=== PATIENT | female | born 1945 | race Caucasian/White ===

== ENCOUNTER → 2022-01-11 | Outpatient (CLI) | payer MEDICARE, MEDICAID, SELFPAY | END | disposition home or self-care (01) | PROVIDERS: PCP Family Medicine; Referring Provider Ophthalmology; Visit Provider Ophthalmology | DX: Z79.899 Other long term (current) drug therapy (principal) | CPT/HCPCS: 36415 ==

== ENCOUNTER → 2022-12-11 | Outpatient (CLI) | payer MEDICARE, MEDICAID, SELFPAY | END | disposition home or self-care (01) | PROVIDERS: PCP Family Medicine; Referring Provider Ophthalmology; Visit Provider Ophthalmology | DX: Z00.00 Encounter for general adult medical examination without abnormal findings (principal) | CPT/HCPCS: 36415 ==

== ENCOUNTER → 2023-01-29 | Outpatient (CLI) | payer MEDICARE, MEDICAID, SELFPAY ==
--- NOTE | 2023-01-29 09:32 | RAD_ITS ---
STUDY: X-RAY CHEST REASON FOR EXAM: Female, 77 years old. Shortness of breath, leg swelling TECHNIQUE: PA and lateral views of the chest. COMPARISON: None. FINDINGS: Right subclavian chest port. The lungs are clear and expanded. Elevated right hemidiaphragm. Normal size heart. Normal mediastinum and bere. Normal visualized pulmonary arteries. Normal visualized aortic arch and descending thoracic aorta. Normal visualized thoracic spine. Normal visualized ribs, clavicles, and shoulders. There is no demonstrated abnormality of the visualized soft tissue structures of the upper abdomen. RAD/Chest PA and Lateral IMPRESSION: No active disease. Electronically Signed: Ángel Boyd MD at 23:48 EST ,
[2023-01-29 09:47] LABS: Hematocrit 43.5 % (37-47); Mean Corp Hgb Conc 32.2 g/dL (32-36); Mean Corpuscular Hgb 28.1 pg (27.0-32.0); Mean Corpuscular Volume 87.3 fL (81-99); Mean Platelet Vol. 10.2 fl (6.2-12.0); Platelet Count 190 K/mm3 (150-450); RBC Distribution Width CV 13.8 % (11.6-14.6); RBC Distribution Width SD 44.2 fl (35.1-43.9); Red Blood Count 4.98 M/mm3 (4.2-5.4); White Blood Count 5.9 K/mm3 (4.4-11.0)
[2023-01-29 10:14] LABS: BNP,B-Type NATRIURETIC PEPTIDE 96.1 pg/mL (0-100)
[2023-01-29 10:23] LABS: Anion Gap 4 (5-15); BUN 22 mg/dL (7-18); Calcium,Total 9.1 mg/dL (8.5-10.1); Chloride 113 mmol/L (98-107); Creatinine, Serum 0.79 mg/dL (0.55-1.02); EST Glomerular Filtration Rate 76 mL/min (>60); Est Glom Filt Rate - Afr Amer 91 mL/min (>60); Glucose 101 mg/dL (74-106); Potassium 3.5 mmol/L (3.5-5.1); Sodium Level 143 mmol/L (136-145); T4 Total, Thyroxin 8.9 ug/dL (4.8-13.9); Thyroid Stim Hormone (TSH) 1.66 uIU/mL (0.358-3.74)
== END | disposition home or self-care (01) ==
LOC: RAD 09:22
PROVIDERS: PCP Family Medicine; Referring Provider Internal Medicine Cardiovascular Disease; Visit Provider Internal Medicine Cardiovascular Disease
DX: M79.89 Other specified soft tissue disorders (principal); R06.09 Other forms of dyspnea
CPT/HCPCS: 36415; 71046; 80048; 83880; 84436; 84443; 85027

== ENCOUNTER → 2023-03-21 | Outpatient (CLI) | payer MEDICARE, MEDICAID, SELFPAY ==
--- NOTE | 2023-03-21 06:44 | ECHOD_ITS ---
Version 2 Reason For Study: SOB Procedure This was a 2D Doppler, Color Flow transthoracic echocardiogram. Exam performed in department. Left Ventricle Normal LV size. Left ventricular systolic function is normal. The estimated ejection fraction is 65 %. Stage 1 diastolic dysfunction. No regional wall motion abnormalities noted. Right Ventricle Normal RV size. Normal systolic function. Atria Normal left atrium. Normal right atrium. Mitral Valve Normal mitral valve. Tricuspid Valve Normal tricuspid valve. Mild tricuspid valve insufficiency. Pulmonary artery systolic pressure is 27 mmHg. Aortic Valve Trisinus/trileaflet aortic valve. Pulmonic Valve Normal pulmonic valve. Great Vessels Normal aortic root. The pulmonary artery is normal size. Normal inferior vena cava. Pericardium/Pleural No pericardial effusion. MMode/2D Measurements & Calculations LVIDd: 3.8 cm IVSd: 1.2 cm Ao root diam: 3.4 cm LVIDs: 2.3 cm LVPWd: 1.1 cm RVDd: 3.2 cm FS: 37.9 % LAV(MOD-bp): 46.2 ml LVAd ap4: 20.3 cm2 LVAd ap2: 17.8 cm2 LAV(MOD-bp) Indexed: 29.5 ml/m2 LVLd ap4: 7.6 cm LVLd ap2: 7.2 cm LAV(MOD-sp2): 54.4 ml EDV(MOD-sp4): 44.3 ml EDV(MOD-sp2): 36.4 ml LAV(MOD-sp4): 36.2 ml EDV(sp4-el): 46.4 ml EDV(sp2-el): 37.4 ml LVAs ap4: 9.1 cm2 LVAs ap2: 9.7 cm2 LVLs ap4: 6.5 cm LVLs ap2: 6.4 cm ESV(MOD-sp4): 11.4 ml ESV(MOD-sp2): 12.7 ml ESV(sp4-el): 10.8 ml ESV(sp2-el): 12.3 ml EF(MOD-sp4): 74.3 % EF(MOD-sp2): 65.1 % EF(sp4-el): 76.7 % SV(MOD-sp4): 32.9 ml SV(MOD-sp2): 23.7 ml SV(sp4-el): 35.6 ml LA dimension(2D): 3.3 cm LA A4 area: 15.4 cm2 RA A4 area: 9.3 cm2 TAPSE: 1.7 cm Time Measurements MV dec time: 0.33 sec Doppler Measurements & Calculations MV E max ulises: 76.3 cm/sec Lat Peak E' Ulises: 5.5 cm/sec Med Peak E' Ulises: 5.5 cm/sec MV A max ulises: 94.2 cm/sec E/E' lat: 13.8 E/E' med: 14.0 MV E/A: 0.81 MV dec slope: 232.1 cm/sec2 Ao V2 max: 144.7 cm/sec LV V1 max: 109.8 cm/sec Ao max P.4 mmHg LV V1 max P.8 mmHg Ao V2 mean: 94.2 cm/sec LV V1 mean P.7 mmHg Ao mean P.2 mmHg LV V1 mean: 77.6 cm/sec Ao V2 VTI: 36.9 cm LV V1 VTI: 28.3 cm AV (velocity ratio): 0.77 PA V2 max: 95.8 cm/sec TR max ulises: 242.8 cm/sec TR max P.6 mmHg ECHO/Echo Complete Interpretation Summary Normal LV size. Left ventricular systolic function is normal. The estimated ejection fraction is 65 %. Stage 1 diastolic dysfunction. Pulmonary artery systolic pressure is 27 mmHg. Structurally normal valves. Ordering Physician: Lang Varela Referring Physician: Erik Gannon Performed By: Annika Munguia RDCS
--- OUTSIDE RECORDS SUMMARY | 2023-03-21 06:49 | XMS RPT_ITS | CCD ---
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 MD Work Phone: [facility] 08-18-2020 15:38-0400 Body temperature 98.01 [degF] Erik Gannon MD Work Phone: [facility] Work Phone: 08-18-2020 15:38-0400 Diastolic blood pressure 67 mm[Hg] Erik Gannon MD Work Phone: [facility] Work Phone: 08-18-2020 15:38-0400 Heart rate 57 /min Erik Gannon MD Work Phone: [facility] Work Phone: 08-18-2020 15:38-0400 Systolic blood pressure 157 mm[Hg] Erik Gannon MD Work Phone: [facility] Work Phone: 08-05-2020 01:18-0400 Diastolic blood pressure 50 mm[Hg] Elfego Barrios MD Work Phone: [facility] Work Phone: 08-05-2020 01:18-0400 Heart rate 70 /min Elfego Barrios MD Work Phone: [facility] Work Phone: 08-05-2020 01:18-0400 Respiratory rate 16 /min Elfego Barrios MD Work Phone: [facility] Work Phone: 08-05-2020 01:18-0400 SaO2% (BldA) [Mass fraction] 92 % Elfego Barrios MD Work Phone: [facility] Work Phone: 08-05-2020 01:18-0400 Systolic blood pressure 118 mm[Hg] Elfego Barrios MD Work Phone: [facility] Work Phone: 08-04-2020 21:32-0400 Body height 157.5 cm Elfego Barrios MD Work Phone: [facility] Work Phone: 08-04-2020 21:32-0400 Body mass index (BMI) [Ratio] 23.78 kg/m2 Elfego Barrios MD Work Phone: [facility] Work Phone: 08-04-2020 21:32-0400 Body temperature 99.5 [degF] Elfego Barrios MD Work Phone: [facility] Work Phone: 08-04-2020 21:32-0400 Body weight 58.97 kg Elfego Barrios MD Work Phone: [facility] Work Phone: 04-19-2020 14:07-0500 Body Temperature 98.4 [degF] Erik VAIL Work Phone: 04-19-2020 14:07-0500 BP Diastolic 54 mm[Hg] Erik Gannon [employer] Work Phone: 04-19-2020 14:07-0500 BP Systolic 108 mm[Hg] Erik Gannon [employer] Work Phone: 04-19-2020 14:07-0500 Pulse (Heart Rate) 80 /min Erik VAIL Work Phone: 04-19-2020 14:07-0500 Respiratory Rate 16 /min Erik VAIL Work Phone: 01-30-2020 16:07-0500 Pulse (Heart Rate) 70 /min [facility], [place] 01-30-2020 16:07-0500 Pulse Oximetry 99 % [facility] , [place] 01-30-2020 14:30-0500 Body Temperature 98.49 [degF] [facility], [place] 01-30-2020 14:30-0500 BP Diastolic 73 mm[Hg] [facility] , [place] 01-30-2020 14:30-0500 BP Systolic 157 mm[Hg] [facility] , [place] 01-30-2020 14:30-0500 Respiratory Rate 14 /min [facility], [place] 10-05-2019 15:34-0400 BP Diastolic 82 mm[Hg] Gael Comer [facility] , [place] 10-05-2019 15:34-0400 BP Systolic 162 mm[Hg] Gael Comer [facility] [place] , [place] 10-05-2019 15:34-0400 Pulse (Heart Rate) 57 /min Gael Comer [facility], [place] 10-05-2019 15:34-0400 Respiratory Rate 12 /min Gael Comer [facility] [place] , [place] 10-05-2019 15:05-0400 Pulse Oximetry 99 % Gael Comer [facility] , [place] 10-05-2019 13:58-0400 Body Temperature 98.71 [degF] [facility] [place] 09-08-2019 10:11-0400 BMI (Body Mass Index) 24.33 kg/m2 Sylvia Winn [facility], [place] 09-08-2019 10:11-0400 Body weight 60.33 [facility] [place] 09-08-2019 10:11-0400 Height 157.5 cm [facility] [place] 09-08-2019 10:11-0400 Pulse (Heart Rate) 60 /min [facility] [place] 09-08-2019 10:11-0400 Pulse Oximetry 99 % [facility] [place] 09-08-2019 10:11-0400 Respiratory Rate 18 /min Sylvia Winn [facility], [place] 08-04-2019 07:43-0400 Body Temperature 100.2 [degF] Quan Fuentes [facility], [place] 08-04-2019 07:43-0400 BP Diastolic 73 mm[Hg] Quan Fuentes [facility] , [place] 08-04-2019 07:43-0400 BP Systolic 124 mm[Hg] Quan Fuentes [facility] , [place] 08-04-2019 07:43-0400 Pulse (Heart Rate) 58 /min Quan Fuentes [facility], [place] 08-04-2019 07:43-0400 Pulse Oximetry 98 % Quan Palmer [facility] [place] , [place] 08-04-2019 07:43-0400 Respiratory Rate 16 /min Quan Palmer [facility] [place], [place] 08-04-2019 04:27-0400 BMI (Body Mass Index) 25.09 kg/m2 Quan Palmer [facility] [place], [place] 08-04-2019 04:27-0400 Body weight 62.23 kg Quan Palmer [facility] , [place] 08-02-2019 04:31-0400 Height 157.5 cm Quan Palmer [facility] [place] , [place] 04-21-2019 11:56-0500 Body Temperature 97.59 [degF] Quan Palmer [facility] [place] , [place] 04-21-2019 11:56-0500 BP Diastolic 57 mm[Hg] Quan Palmer [facility] , [place] 04-21-2019 11:56-0500 BP Systolic 105 mm[Hg] Quan Palmer [facility] , [place] 04-21-2019 11:56-0500 Pulse (Heart Rate) 70 /min Quan Palmer [facility] [place], [place] 04-21-2019 11:56-0500 Pulse Oximetry 99 % Quan Palmer [facility] , [place] 04-21-2019 11:56-0500 Respiratory Rate 18 /min Quan Palmer [facility] [place] , [place] 04-21-2019 05:13-0500 BMI (Body Mass Index) 23.48 kg/m2 Quan Palmer [facility] [place] 04-21-2019 05:13-0500 Body weight 58.24 kg Quan Palmer [facility] , [place] 04-16-2019 14:54-0500 Height 157.5 cm Quan Palmer [facility] , [place] 12-31-2018 11:34-0500 BMI (Body Mass Index) 24.77 kg/m2 Erik Palmer [facility], [place] 12-31-2018 11:34-0500 Body Temperature 99 [degF] Erik Palmer [facility] 12-31-2018 11:34-0500 Body [facility] [place] 12-31-2018 11:34-0500 BP Diastolic 86 mm[Hg] [facility] [place] 12-31-2018 11:34-0500 BP Systolic 131 mm[Hg] [facility] [place] [facility] [place] 12-31-2018 11:34-0500 Height 154.9 cm [facility] [place] [facility] [place] 12-31-2018 11:34-0500 Pulse (Heart Rate) 61 /[facility] [place] [place] 12-04-2018 09:49-0400 Body Temperature 98.4 [degF] [facility], [place] 12-04-2018 09:49-0400 BP Diastolic 48 mm[Hg] [facility] , [place] 12-04-2018 09:49-0400 BP Systolic 125 mm[Hg] [facility] , [place] 12-04-2018 09:49-0400 Pulse (Heart Rate) 68 /min [facility], [place] 12-04-2018 09:49-0400 Pulse Oximetry 97 % [facility] , [place] 12-04-2018 09:49-0400 Respiratory Rate 16 /min [facility], [place] 12-03-2018 07:27-0400 BMI (Body Mass Index) 24.37 kg/m2 [facility], [place] 12-03-2018 07:27-0400 Body weight 58.[address] [facility] , [place] 12-03-2018 07:27-0400 Height 154.9 cm [place], [place] Encounters Encounter Date Encounter Type Care Provider Facility Start: 02-27-2023 End: 02-[facility]: 02-27-2023 End: 02-27-2023 Encounter for general adult medical examination without abnormal findings GIFTY CLARK [facility] Start: 02-27-2023 End: 02-27-2023 Patient encounter procedure Gifty Clark [employer] EXAM[employer] Work Phone: [facility] Procedures Date Procedure Procedure Detail Performing Clinician Start: 01-02-2023 Urnls dip stick/tabl et rgnt non-auto w/o micrscp Gifty Clark [employer] CLAIM[employer] EXAMINER Work Phone: Start: 01-02-2023 Lipid 1996 panel - S hal or Plasma Erik Gannon MD Work Phone: Start: 01-02-2023 Thyrotropin [Units/v olume] in Serum or Plasma Erik Gannon MD Work Phone: Start: 11-13-2022 Urnls dip stick/tabl et rgnt auto w/o microscopy Daron Odonnell MD Work Phone: Start: 10-02-2022 Culture bacterial quanttative colony count urine Chrissy Bridenthal [employer] CLAIMS EXAMINER Work Phone: Start: 10-02-2022 SURESWAB(R) ADVANCED VAGINITIS, TMA (QUEST) Chrissy Bridenthal [employer] CLAIMS EXAMINER Work Phone: Start: 10-02-2022 Urnls dip stick/tabl et rgnt non-auto w/o micrscp Chrissy Bridenthal [employer] CLAIMS EXAMINER Work Phone: Start: 09-20-2022 Urnls dip stick/tabl et rgnt non-auto w/o micrscp Erik Gannon MD Work Phone: Start: 09-05-2022 Ct abdomen & pelvis w/contrast material Delta Zepeda DO Work Phone: Start: 09-05-2022 Basic metabolic pane l calcium total Delta Zepeda DO Work Phone: Start: 09-05-2022 Urnls dip stick/tabl et reagent auto microscopy Delta Zepeda DO Work Phone: Start: 12-21-2021 Lipid 1996 panel - S hal or Plasma Gifty Clark [employer] CLAIMS EXAMIN[employer] Work Phone: Start: 11-20-2021 Radex elbow complete minimum 3 views Reji Hester MD Work Phone: Start: 11-20-2021 Ct cervical spine w/ o contrast material Reji Hester MD Work Phone: Start: 11-20-2021 Ct head/brain w/o co ntrast material Reji Hester MD Work Phone: Start: 05-22-2021 Thyrotropin [Units/v olume] in Serum or Plasma Gifty Clark [employer] CLAIMS EXAMINER Work Phone: Start: 08-04-2020 Computed tomography of abdomen and pelvis with contrast Elfego Barrios MD Work Phone: Start: 08-04-2020 Comprehensive metabo lic panel Elfego Barrios MD Work Phone: Start: 08-04-2020 Urnls dip stick/tabl et rgnt auto w/o microscopy Elfego Barrios MD Work Phone: Start: 07-29-2020 Mri brain brain stem w/o contrast material Gifty Clark [employer] CLAIMS EXAMINER Work Phone: Start: 01-30-2020 Urnls dip stick/tabl et rgnt auto w/o microscopy Elfego Blake Work Phone: Start: 01-30-2020 Assay of lactate Elfego Blake Work Phone: Start: 01-30-2020 Basic metabolic pane l calcium total Elfego Blake Work Phone: Start: 01-30-2020 Blood count complete auto&auto difrntl wbc Elfego Blake Work Phone: Start: 01-30-2020 Radiologic exam ches t single view Elfego Blake Work Phone: Start: 10-05-2019 Radiologic exam ches t single view Gael Comer Work Phone: Start: 10-05-2019 Ct head/brain w/o co ntrast material Gael Comer Work Phone: Start: 10-05-2019 Assay of troponin quantitative Gael Comer Work Phone: Start: 10-05-2019 Basic metabolic pane l calcium total Gael Comer Work Phone: Start: 10-05-2019 Blood count complete automated Gael Comer Work Phone: Start: 09-08-2019 Brncdilat rspse spmt ry pre&post-brncdilat admn Robbieroor Winn Work Phone: Start: 09-08-2019 Ct thorax w/o contra st material Robbieroor Winn Work Phone: Start: 08-04-2019 MANAGER OF ORGANIZATIONAL DEVELOPMENT MODIFIED BARIUM SWALLOW STUDY (MBS) Sri Nguyen Work Phone: Start: 08-04-2019 Swallowing funcj w/cineradiograpy/vidradiog Sri Nguyen Work Phone: Start: 08-03-2019 Speech and language therapy regime Sri Nguyen Work Phone: Start: 08-03-2019 Ecg routine ecg w/le ast 12 lds w/i&r [facility] Work Phone: Start: 08-03-2019 Blood count complete automated [facility] Work Phone: Start: 08-02-2019 Radex shoulder compl ete minimum 2 views Paulina Kumar Work Phone: Start: 08-02-2019 Assay of troponin quantitative [facility] Work Phone: Start: 08-02-2019 Assay of troponin quantitative [facility] Work Phone: Start: 08-02-2019 Ecg routine ecg w/le ast 12 lds w/i&r Zeus W Pete Work Phone: Start: 08-02-2019 Ct thorax w/o contra st material Quan Fuentes Work Phone: Start: 08-02-2019 Urnls dip stick/tabl et rgnt auto w/o microscopy Quan Fuentes Work Phone: Start: 08-02-2019 Assay of troponin quantitative Quan Fuentes Work Phone: Start: 08-02-2019 Blood count complete auto&auto difrntl wbc Quan Fuentes Work Phone: Start: 08-02-2019 Comprehensive metabo lic panel Quan Fuentes Work Phone: Start: 08-02-2019 Radiologic exam ches t single view Quan Fuentes Work Phone: Start: 08-01-2019 Ecg routine ecg w/le ast 12 lds w/i&r Quan Fuentes Work Phone: Start: 04-21-2019 Basic metabolic pane l calcium total Cheryl Fuller Work Phone: Start: 04-21-2019 Blood count complete automated Cheryl Fuller Work Phone: Start: 04-20-2019 OPERATIVE REPORT 3m Sca nning Start: 04-20-2019 CARDIAC CATH NURSING LOG 3m Scanning Start: 04-20-2019 DIAGNOSTIC CARDIAC C ATH LAB PROCEDURE Ольга Petit Work Phone: Start: 04-20-2019 Basic metabolic pane l calcium total Vadim Hein Work Phone: Start: 04-20-2019 Blood count complete auto&auto difrntl wbc Vadim Hein Work Phone: Start: 04-20-2019 Prothrombin time Vadim Hein Work Phone: Start: 04-18-2019 Myocardial spect mul tiple studies Elroy Robertsondarrell Work Phone: Start: 04-18-2019 BASIC METABOLIC PANE L W/ REFLEX TO MG FOR LOW K Elroy Robertsonlla Work Phone: Start: 04-17-2019 Ecg routine ecg w/le ast 12 lds w/i&r Elroy Gradyfelipa Work Phone: Start: 04-17-2019 Assay of troponin quantitative Elroy Robertsondarrell Work Phone: Start: 04-17-2019 BASIC METABOLIC PANE L W/ REFLEX TO MG FOR LOW K Elroy Ward Work Phone: Start: 04-17-2019 Blood count complete automated Elroy Ward Work Phone: Start: 04-17-2019 Lipid panel Elroy kapadia Work Phone: Start: 04-16-2019 Ecg routine ecg w/le ast 12 lds w/i&r Vadim Hein Work Phone: Start: 04-16-2019 Assay of troponin quantitative Elroy Ward Work Phone: Start: 04-16-2019 Ecg routine ecg w/le ast 12 lds w/i&r Vadim Cornelius Work Phone: Start: 04-16-2019 Assay of lipase Vadim Cornelius Work Phone: Start: 04-16-2019 Assay of troponin quantitative Vadim Cornelius Work Phone: Start: 04-16-2019 Blood count complete auto&auto difrntl wbc Vadim Cornelius Work Phone: Start: 04-16-2019 Comprehensive metabo lic panel Vadim Cornelius Work Phone: Start: 04-16-2019 Radiologic exam ches t single view Vadim Cornelius Work Phone: Start: 04-16-2019 Ecg routine ecg w/le ast 12 lds w/i&r Vadim Cornelius Work Phone: Start: 12-04-2018 Blood count complete automated Ghanshyam Morrissaleem Work Phone: Start: 12-04-2018 Comprehensive metabo lic panel Ghanshyam [employer] Work Phone: Start: 12-03-2018 OPERATIVE REPORT 3m Sca nning Start: 12-03-2018 Ecg routine ecg w/le ast 12 lds w/i&r Carlos Bonilla Work Phone: Start: 12-03-2018 Blood count complete auto&auto difrntl wbc Carlos Bonilla Work Phone: Start: 12-03-2018 Blood count complete automated Carlos Bonilla Work Phone: Plan of Treatment Date Care Activity Detail Author Start: 11-21-2031 DTaP/Tdap/Td vaccine (2 - Td or Tdap) DTaP/Tdap/Td vaccine (2 - Td or Tdap) [facility] Start: 11-21-2031 DTaP/Tdap/Td Vaccine s (2 - Td or Tdap) DTaP/Tdap/Td Vaccines (2 - Td or Tdap) [facility] Start: 01-03-2028 Lipid panel Lipid Panel [facility] Start: 12-21-2026 Lipid panel Lipid Panel [facility] Start: 05-22-2026 Lipid panel Lipids [facility] Start: 03-04-2024 End: 03-04-2024 Patient encounter procedure 03/04/2024 10:00 AM EST Office Visit [facility] [address], [place] [id number] Gifty Clark, [employer]ANCE CLAIMS EXAMINER [address] [place] [address] [facility] Start: 02-28-2024 RSV Immunization age d 60 or older (1 - 1-dose 60+ series) RSV Immunization aged 60 or older (1 - 1-dose 60+ series) [facility] Immunizations Immunization Date Immunization Notes Care Provider Fa cili 12-21-2021 Influenza, Seasonal, Quadrivalent, Adjuvanted Gifty Clark [employer] EXAMIN[employer] Work Phone: [facility] 12-21-2021 influenza virus vacc ine, unspecified formulation Delta Zepeda DO Work Phone: [facility] 11-20-2021 tetanus toxoid, redu catrina diphtheria toxoid, and acellular pertussis vaccine, adsorbed Reji Hester MD Work Phone: [facility] 02-27-2021 Influenza, High-dose , Quadv, 65 yrs +, IM (Fluzone) Erik Gannon MD Work Phone: [facility] Work Phone: 11-18-2019 Influenza, High-dose , Quadv, 65 yrs +, IM (Fluzone) Erik Gannon [facility] 02-19-2019 influenza, high dose seasonal, preservative-free Quan Fuentes [facility], [place] 12-24-2017 influenza, injectabl e, quadrivalent, preservative free [facility] [place] [place] 12-24-2017 pneumococcal polysaccharide vaccine, 23 valent [facility] [place] [place] 10-11-2016 influenza, high dose seasonal, preservative-free [facility], [place] 03-13-2016 Influenza Vaccine, unspecified formulation [facility] [place] [facility] [place] 11-29-2014 pneumococcal conjuga te vaccine, [address] [facility], [place] 11-24-2014 influenza virus vacc ine, unspecified formulation [facility] 11-10-2013 influenza, seasonal, injectable Gifty Clark [employer] CLAIMS EXAMINER Work Phone: [facility] 12-18-2012 pneumococcal polysaccharide vaccine, 23 valent [facility] [place] [place] 12-18-2012 zoster vaccine, live [facility] [place] [place] Payers Date Payer Category Payer Medicare [id number] 2022 Medicaid [id number] 2022 Medicare 2022 Medicare [id number] 2021 Medicaid 2021 Medicare AETNA MEDICARE A ETNA MEDICARE ADVANTAGE O [id number] 2021-Present [address] [place] [address] Medicare [id number] 2017 Unknown [employer]IC[employer] SUPP xxxxxxxxxx 2017-Present [phone] [address] [address] [place] [address] [id number] 2017 Unknown [employer] MEDIC[employer] SUPP [id number] 2017-Present [phone] [address] [address] [place] [address] [id number] 2017 Unknown [id number] 2015 Medicare MEDICARE MEDICAR E PART A AND B xxxxxxxxxxx 2015-Present [phone] [place] [address] xxxxxxxxxxx [id number] 2015 Medicare MEDICARE MEDICAR E PART A AND B [id number] 2015-Present [phone] [place] [address] [id number] 2015 Medicare MEDICARE MEDICAR E PART A AND B [id number] 2015-Present [phone] [place] [address] [id number] 1946 Unknown [id number] .1945 Unknown [id number] 1946 Unknown [id number] .1946 Unknown [id number] 1946 Unknown [id number] 1945 Unknown [id number] 1946 Unknown [id number] .1945 Unknown [id number] .1945 Unknown [id number] .1946 Unknown [id number] .1945 Unknown [id number] . Private Health Insurance Unknown Social History Date Type Detail Facility Start: 12-04-2018 End: 11-29-2021 Tobacco smoking status NHIS Never smoker [place] Start: 12-04-2018 End: 02-26-2023 [facility] Start: 11-12-2018 History SDOH Physica l Activity DPW 3 [place] Start: 11-12-2018 End: 10-18-2021 History SDOH Physical Activity MPS 2 [place] Start: 11-12-2018 End: 10-18-2021 History SDOH Food Scarcity 1 [place] Sex Assigned At Not on file [place] Start: 04-17-2019 End: 02-27-2023 Alcohol intake Current non-drinker of alcohol (finding) [place] Exposure to SARS-CoV -2 (event) Unable to assess [place] Start: 08-20-2019 End: 11-29-2021 Tobacco use and exposure Never used [place], [place] Start: 05-12-2021 End: 11-13-2022 Exposure to SARS-CoV-2 (event) Not sure [place] Exposure to SARS-CoV -2 (event) Yes [facility] [place] [place] Start: 07-20-2020 End: 02-26-2023 Alcohol intake [facility] [employer] Start: 1945 Sex Assigned At Female [facility] Work Phone: Start: 10-18-2021 History SDOH Financial 4 [employer] Work Phone: Start: 12-14-2021 Gender identity Identifies as female gender (finding) [facility] Start: 12-14-2021 Sexual orientation Heterosexual (fin ding) [facility] How often to you hav e a drink containing alcohol? Never [facility] How many standard dr inks containing alcohol do you have on a typical day? Patient does not drink [facility] How hard is it for y ou to pay for the very basics like food, housing, medical care, and heating Not very hard [facility] (I/We) worried wheth er (my/our) food would run out before (I/we) got money to buy more. Never true [facility] In the past 12 month s, was there a time when you were not able to pay the mortgage or rent on time? No [facility] How hard is it for y ou to pay for the very basics like food, housing, medical care, and heating Hard [facility] Goals Date Patient Goal Desired Activity /State Clinical Notes 03-04-2019 to 02-27-2023 Margret Yusuf MA - 02/27/2023 2:40 PM ESTGifty Clark APRN - [place] - 02/27/2023 2:40 PM ESTTelephone Encounter - Erik Gannon MD - 02/14/2023 3:28 PM Nelsy Iyer RN - 12/19/2022 2:00 PM EDT Note Date & Type Note Facility 02-27-2023 History of Presen t illness Narrative Patient was verified by name and . Images from the original note were not included. [facility] [address] [facility] [address] [facility] [id number] Visit type: Established Patient Reason for Visit: Medicare Annual Wellness Visit Subsequent, Health Maintenance (RSV vaccine-did not get/Flu vaccine-declines/Shingrix-declin es/DEXA-declines), Blood Work (Gifty noted CMP, A1c and lipid are due 03/16/23-Orders pended), and Neck Pain (Onset 2 months, stiffness ) Assessment and Plan 1. Medicare annual wellness visit, subsequent - Encouraged a healthy diet low in cholesterol and saturated fats. - Encouraged regular exercise. 2. Chronic tension-type headache, not intractable - Comprehensive metabolic panel - Stable with PRN Fioricet. Will continue current treatment plan. 3. Neck pain - Comprehensive metabolic panel - XR cervical spine complete 4 to 5 views - Will obtain an x-ray for further evaluation. - Continue Baclofen as prescribed. 4. Neuropathy - Comprehensive metabolic panel - Stable. Continue Gabapentin as prescribed. 5. Lung nodule - Comprehensive metabolic panel - CT lung screening follow up low dose 6. CAD in [place] artery - Comprehensive metabolic panel - Lipid panel - Stable. Follow up with specialist as directed. 7. Mixed hyperlipidemia - Comprehensive metabolic panel - Lipid panel - Will start Rosuvastatin and check cholesterol levels in about 4 weeks. 8. Pulmonary hypertension (HCC) - Comprehensive metabolic panel - Stable with Enalapril. Will continue current treatment plan. 9. Gastroesophageal reflux disease, unspecified whether esophagitis present - Comprehensive metabolic panel - Stable with Omeprazole. Will continue current treatment plan. 10. Hypothyroidism, unspecified type - Comprehensive metabolic panel - Stable with Levothyroxine. Will continue current treatment plan. 11. Dysthymic disorder - Comprehensive metabolic panel - Stable with Sertraline. Will continue current treatment plan. 12. Anxiety - Comprehensive metabolic panel - Stable with Sertraline and PRN Lorazepam. Will continue current treatment plan. 13. Scleroderma (CMS/HCC) (HCC) - Comprehensive metabolic panel - Stable. 14. Elevated fasting glucose - Hemoglobin A1c - Comprehensive metabolic panel - Will notify of blood work results. 15. Bilateral hearing loss, unspecified hearing loss type - External referral to ENT 16. Screening mammogram for breast cancer - Bilateral screening mammogram with tomosynthesis Follow up in 4 weeks (on 03/27/2023) for lab visit for fasting blood work- please reschedule from 03/14/23 and then in 6 months for med maint. Sameer FRANCISCO Goodwin presents today for her annual Medicare physical. Is due for some blood work but not until the end of the month. Chronic Headache/Neck Pain/Neuropathy: Will take Baclofen and Gabapentin as prescribed. Feels her neck is constantly stiff. Will take Fioricet as needed for her headaches and this is helpful. Has been going to a chiropractor for her neck without much improvement. Lung Nodule: Last CT of her lungs was in February of 2022. Would like repeat imaging ordered for this year. CAD/Hyperlipidemia: Was switched to Rosuvastatin since levels remained elevated on high dose of Pravastatin. Has not started taking this yet. Plans to potato picker her prescription for this. Sees Dr. Varela in [place]. He is going to have her get an echocardiogram completed. Pulmonary Hypertension: Takes Enalapril as prescribed. BP I stable today at 135/59. GERD: Takes Omeprazole daily as prescribed. Feels symptoms are well controlled. Hypothyroidism: Has been taking her Levothyroxine daily as prescribed. Had her TSH checked on 01/02/23 and it was within normal range at 2.48 mIU/L. Dysthymic Disorder/Anxiety: Takes Sertraline daily as prescribed. Feels this is helpful. Will take Lorazepam nightly and this works well for her. Scleroderma: Not currently following up with a specialist. Symptoms are aggravated in the winter months. Feels symptoms are stable. Her fasting blood sugar was elevated at 124 at her previous check in December. Will follow up on this with a hemoglobin A1c blood test. Health Maintenance: RSV vaccine-did not get/Flu vaccine-declines/Shingrix-declin es/DEXA-declines. Tdap current: 11/20/21. Is fully vaccinated for pneumonia. I have reviewed and reconciled the medication list with the patient today. Current Outpatient Medications Medication Sig Dispense Refill ascorbic acid (Vitamin C) 500 MG ER capsule Take 500 mg by mouth daily. baclofen (Lioresal) 10 MG tablet TAKE ONE AND ONE-HALF TABLET BY MOUTH THREE TIMES DAILY NEEDED FOR MUSCLE SPASM 135 tablet 2 ztjnvsxqkj-axygkwffmzkxr-ujsairq e 50-325-40 MG tablet Take 1 tablet by mouth every 4 hours as needed. cholecalciferol (Vitamin D-3) 25 MCG (1000 UT) capsule Take by mouth. enalapril (Vasotec) 10 MG tablet TAKE 1 TABLET (10 MG) BY MOUTH DAILY. 30 tablet 5 fluorometholone (FML) 0.1 % ophthalmic suspension Administer 1 drop into both eyes in the morning and 1 drop before bedtime. gabapentin (Neurontin) 100 MG capsule TAKE 1 CAPSULE (100 MG) BY MOUTH 3 TIMES DAILY. 90 capsule 0 levothyroxine (Synthroid, Levoxyl) 50 MCG tablet TAKE 1 TABLET (50 MCG) BY MOUTH EVERY MORNING. 30 tablet 5 LORazepam (Ativan) 1 MG tablet Take 1 tablet (1 mg) by mouth Daily as needed for anxiety. 30 tablet 0 metoprolol succinate XL (Toprol-XL) 25 MG 24 hr tablet multivitamin with minerals (Cerovite) 18-400 mg-mcg tablet tablet Take by mouth. omeprazole OTC (PriLOSEC OTC) 20 MG EC tablet Take 1 tablet by mouth every morning. rosuvastatin (Crestor) 40 MG tablet Take 1 tablet (40 mg) by mouth daily. 30 tablet 0 sertraline (Zoloft) 50 MG tablet TAKE ONE AND ONE-HALF TABLET BY MOUTH EVERYDAY 45 tablet 1 No current facility-administered medications for this visit. There are no discontinued medications. List of current healthcare providers: Patient Care Team: Erik Gannon MD as PCP - General (Family Medicine) Daron Odonnell MD as Surgeon (Urology) Over the last 2 weeks, how often have you been bothered by any of the following problems? Feeling nervous, anxious, or on edge: Not at all Not being able to stop or control worrying: Not at all Worrying too much about different things: Not at all Trouble relaxing: Not at all Being so restless that it is hard to sit still: Not at all Becoming easily annoyed or irritable: Not at all Feeling afraid as if something awful might happen: Several days LINDA-7 Total Score: 1 The following health maintenance schedule was reviewed with the patient and provided in printed form in the after visit summary: Health Maintenance Topic Date Due Influenza Vaccine (1) 08/25/2023 (Originally 10/26/2022) Bone Density Scan 01/02/2024 (Originally 1945) Zoster Vaccines (2 of 3) 02/07/2024 (Originally 02/12/2013) RSV Immunization aged 60 or older (1 - 1-dose 60+ series) 02/28/2024 (Originally 2006) Depresssion Monitoring 08/27/2023 TSH Level 01/03/2024 Medicare Advantage Annual Wellness Visit (AWV) 03/29/2024 Lipid Panel 01/03/2028 DTaP/Tdap/Td Vaccines (2 - Td or Tdap) 11/21/2031 Pneumococcal Vaccine: 65+ Years Completed Hepatitis C Screening Completed RSV Immunization under 20 Months Aged Out HIB Vaccines Aged Out Hepatitis B Vaccines Aged Out IPV Vaccines Aged Out Hepatitis A Vaccines Aged Out Meningococcal Vaccine Aged Out Rotavirus Vaccines Aged Out HPV Vaccines Aged Out Colorectal Cancer Screening Discontinued COVID-19 Vaccine Discontinued Orders Placed This Encounter Procedures CT lung screening follow up low dose Standing Status: Future Standing Expiration Date: 02/28/2024 Bilateral screening mammogram with tomosynthesis Standing Status: Future Standing Expiration Date: 04/27/2024 XR cervical spine complete 4 to 5 views Standing Status: Future Standing Expiration Date: 02/28/2024 Hemoglobin A1c Standing Status: Future Number of Occurrences: 1 Standing Expiration Date: 02/27/2024 Comprehensive metabolic panel Standing Status: Future Number of Occurrences: 1 Standing Expiration Date: 02/27/2024 Lipid panel Standing Status: Future Number of Occurrences: 1 Standing Expiration Date: 02/27/2024 External referral to ENT Standing Status: Future Standing Expiration Date: 08/28/2023 Referral Priority: Routine Referral Type: Consultation Referral Reason: Specialty Services Required Referred to Provider: Gael Duncan DO Requested Specialty: Otolaryngology Number of Visits Requested: 1 Health Risk Assessment: General In general, how would you say your health is?: Good In the past 7 days, have you experienced any of the following: New or Increased Pain, New or Increased Fatigue, Loneliness, Social Isolation, Stress or Anger?: No Do you get the social and emotional suppport you need?: Yes Interventions: N/A Health Habits / Nutrition On average, how many days per week do you engage in moderate to strenous exercise (like a brisk walk)?: (!) 0 days On average, how man minutes do you engage in exercise at this level?: (!) 0 min Have you lost any weight without trying in the past 3 months? : Yes (3lbs) Have you seen the dentist within the past year?: (!) No Interventions: Inadequate physical activity: Plans to join [employer] and Dental exam overdue: Patient encouraged to make appointment with his / her dentist Hearing / Vision Do you or your family notice any trouble with your hearing that hasn't been managed with hearing aids?: (!) Yes Do you have difficulty driving, watching TV, or doing any of your daily activities because of your eyesight?: No Have you had an eye exam within the past year?: Yes No results found. Interventions: Hearing concerns: Audiology referral provided Safety Do you have a working smoke detector?: Yes Do you have any tripping hazards - loose or unsecured carpets or rugs?: No Do you have any tripping hazards - clutter in doorways, halls, or stairs?: No Do you have either shower bars, grab bars, non-slip mats or non-slip surfaces in your shower or bathtub? : Yes Do all your stairways have a railing or banister? : Yes Do you fasten your seatbelt when you are in a car?: Yes Interventions: N/A ADL In the past 7 days, did you need help from others to perform any of the following everyday activities: Eating, dressing, grooming,bathing, toileting, or walking / balance? : (!) Yes Select all that apply: Bathing In the past 7 days, did you need help from others to take care of any of the following: laundry, housekeeping, banking / finances,shopping, telephone use, food preparation, transportation, or taking medications? : Yes Select all that apply: Food Preparation, Housekeeping Interventions: Has a home helper and this works well for her. Living Will Do you have a living will?: Yes Interventions: N/A Cognitive: Cognitive Screening: Mini-Cog Clock Drawing Test (CDT): 2 Words Recalled: 3 Total Score: 5 Total Score Interpretation: Normal Mini-Cog Hypertension: Yes Interventions: N/A Fall Risk: 02/26/2023 1548 Last Filed Value Fall Risk One or more falls in the last year: Yes Yes Advised to use a cane or walker to get around safely: No No Feels unsteady when walking: No No Steadies self on furniture while walking at home: No No Worried about falling: No No Interventions: Home safety tips provided Depression Screening: Over the past 2 weeks, how often have you been bothered by any of the following problems? Little interest or pleasure in doing things: Not at all Feeling down, depressed, or hopeless: Not at all Patient Health Questionnaire-2 Score: 0 Interventions: N/A Tobacco Use: Social History Tobacco Use Smoking Status Never Smokeless Tobacco Never Interventions: N/A Alcohol Use: Audit Alcohol Screening Q1: How often do you have a drink containing alcohol?: Never Q2: How many drinks containing alcohol do you have on a typical day when you are drinking?: Patient does not drink Q3: How often do you have six or more drinks on one occasion?: Never Audit-C Score: 0 Skip to questions 9-10?: 1 Interventions: N/A Drug Use: Interventions: N/A Review of Systems Constitutional: Negative for chills and fever. HENT: Positive for hearing loss. Negative for trouble swallowing. Eyes: Negative for pain and visual disturbance. Respiratory: Negative for cough, chest tightness, shortness of breath and wheezing. Cardiovascular: Negative for chest pain, palpitations and leg swelling. Gastrointestinal: Negative for abdominal distention, abdominal pain, blood in stool, constipation and diarrhea. Endocrine: Negative for polydipsia, polyphagia and polyuria. Genitourinary: Negative for dysuria and hematuria. Musculoskeletal: Positive for arthralgias, back pain and neck pain. Skin: Negative for color change, pallor, rash and wound. Neurological: Positive for headaches. Negative for dizziness, syncope and weakness. Hematological: Does not bruise/bleed easily. Psychiatric/Behavioral: The patient is nervous/anxious. Immunization History Administered Date(s) Administered Influenza, High Dose Seasonal, Preservative Free 10/11/2016, 02/19/2019 Influenza, High-dose Seasonal, Quadrivalent, Preservative Free 11/18/2019, 02/27/2021 Influenza, Seasonal, Quadrivalent, Adjuvanted 12/21/2021 Influenza, Unspecified 11/24/2014 Influenza, injectable, quadrivalent, preservative free 12/24/2017 Influenza, seasonal, injectable 11/10/2013 Pneumococcal Conjugate PCV 13 11/29/2014 Pneumococcal Polysaccharide PPSV23 12/18/2012, 12/24/2017 Tdap 11/20/2021 Zoster, live 12/18/2012 Allergies Allergen Reactions Azithromycin Other reaction(s): Intolerance Metoclopramide Other reaction(s): Intolerance Naproxen Other reaction(s): Intolerance Sulfa Antibiotics Hives Sulfamethoxazole-Trimethoprim Amoxicillin-Pot Clavulanate Nausea And Vomiting Outpatient Medications Prior to Visit Medication Sig Dispense Refill ascorbic acid (Vitamin C) 500 MG ER capsule Take 500 mg by mouth daily. baclofen (Lioresal) 10 MG tablet TAKE ONE AND ONE-HALF TABLET BY MOUTH THREE TIMES DAILY NEEDED FOR MUSCLE SPASM 135 tablet 2 hyzuicdiqs-fnidvsnvnfuka-hzsabah e 50-325-40 MG tablet Take 1 tablet by mouth every 4 hours as needed. cholecalciferol (Vitamin D-3) 25 MCG (1000 UT) capsule Take by mouth. enalapril (Vasotec) 10 MG tablet TAKE 1 TABLET (10 MG) BY MOUTH DAILY. 30 tablet 5 fluorometholone (FML) 0.1 % ophthalmic suspension Administer 1 drop into both eyes in the morning and 1 drop before bedtime. gabapentin (Neurontin) 100 MG capsule TAKE 1 CAPSULE (100 MG) BY MOUTH 3 TIMES DAILY. 90 capsule 0 levothyroxine (Synthroid, Levoxyl) 50 MCG tablet TAKE 1 TABLET (50 MCG) BY MOUTH EVERY MORNING. 30 tablet 5 LORazepam (Ativan) 1 MG tablet Take 1 tablet (1 mg) by mouth Daily as needed for anxiety. 30 tablet 0 metoprolol succinate XL (Toprol-XL) 25 MG 24 hr tablet multivitamin with minerals (Cerovite) 18-400 mg-mcg tablet tablet Take by mouth. omeprazole OTC (PriLOSEC OTC) 20 MG EC tablet Take 1 tablet by mouth every morning. rosuvastatin (Crestor) 40 MG tablet Take 1 tablet (40 mg) by mouth daily. 30 tablet 0 sertraline (Zoloft) 50 MG tablet TAKE ONE AND ONE-HALF TABLET BY MOUTH EVERYDAY 45 tablet 1 No facility-administered medications prior to visit. Past Medical History: Diagnosis Date Acid reflux Acute cystitis without hematuria 05/17/2021 Allergic rhinitis, cause unspecified Arthritis Calculus of kidney Chest pain 04/16/2019 Chronic respiratory failure with hypoxia (HCC) 03/17/2020 COVID-19 virus infection 03/17/2020 Cystitis, unspecified Diarrhea Dysthymic disorder History of blood transfusion Laceration of scalp 11/29/2021 Lesion of soft tissue MULTIPLE AREAS ; SCHEDULED FOR THE EXCISION ON 12/02/2017 Mastodynia Neuropathy Other malaise and fatigue Pain in limb left hip Personal history of fall Scleroderma (CMS/HCC) (HCC) Sprain of ankle, unspecified site Sprain of neck Systemic sclerosis (HCC) Unspecified essential hypertension Unspecified hypothyroidism Urge incontinence Urinary tract infection symptoms 10/02/2022 Vaginal irritation 10/02/2022 Social History Socioeconomic History Marital status: Tobacco Use Smoking status: Never Smokeless tobacco: Never Vaping Use Vaping Use: Never used Substance and Sexual Activity Alcohol use: No Alcohol/week: 0.0 standard drinks of alcohol Drug use: No Social History Narrative 47 h/o [place], lives alone 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 2 children 3 GC and 4 GGC Social Determinants of Health Financial Resource Strain: High Risk (02/26/2023) Overall Financial Resource Strain (CARDIA) Difficulty of Paying Living Expenses: Hard Food Insecurity: No Food Insecurity (02/26/2023) Hunger Vital Sign Worried About Running Out of Food in the Last Year: Never true Ran Out of Food in the Last Year: Never true Transportation Needs: No Transportation Needs (02/26/2023) PRAPARE - Transportation Lack of Transportation (Medical): No Lack of Transportation (Non-Medical): No Physical Activity: Inactive (02/26/2023) Exercise Vital Sign Days of Exercise per Week: 0 days Minutes of Exercise per Session: 0 min Housing Stability: High Risk (02/26/2023) Housing Stability Vital Sign Unable to Pay for Housing in the Last Year: Yes Number of Places Lived in the Last Year: 1 Unstable Housing in the Last Year: No Past Surgical History: Procedure Laterality Date APPENDECTOMY BLADDER SUSPENSION CARDIAC PROCEDURE 03/2019 nonobstructive disease CATARACT EXTRACTION Left 09/27/2020 CATARACT EXTRACTION Right 09/15/2020 CHOLECYSTECTOMY COLONOSCOPY 2012 EXTREMITY SURGERY Bilateral calcium deposits removed inner thighs HAND SURGERY LONG LONG TIME AGO HYSTERECTOMY TUNNELED VENOUS CATHETER PLACEMENT Past Surgical History: Procedure Laterality Date APPENDECTOMY BLADDER SUSPENSION CARDIAC PROCEDURE 03/2019 nonobstructive disease CATARACT EXTRACTION Left 09/27/2020 CATARACT EXTRACTION Right 09/15/2020 CHOLECYSTECTOMY COLONOSCOPY 2012 EXTREMITY SURGERY Bilateral calcium deposits removed inner thighs HAND SURGERY LONG LONG TIME AGO HYSTERECTOMY TUNNELED VENOUS CATHETER PLACEMENT Family History Problem Relation Name Age of Onset Cancer Father liver Cancer Mother pancreatic Heart disease Father Heart disease Mother Objective BP 135/59 Pulse 64 Ht 5' 2 (1.575 m) Wt 125 lb 9.6 oz (57 kg) BMI 22.97 kg/m Physical Exam Constitutional: General: Not in acute distress. Appearance: Not ill-appearing or diaphoretic. HENT: Head: Normocephalic and atraumatic. Right Ear: Tympanic membrane, ear canal and external ear normal. Left Ear: Tympanic membrane, ear canal and external ear normal. Nose: Nose normal. No congestion or rhinorrhea. Mouth/Throat: Mouth: Mucous membranes are moist. Pharynx: Oropharynx is clear. No oropharyngeal exudate or posterior oropharyngeal erythema. Eyes: General: No scleral icterus. Extraocular Movements: Extraocular movements intact. Pupils: Pupils are equal, round, and reactive to light. Neck: Thyroid: No thyroid mass or thyromegaly. Vascular: No carotid bruit. Cardiovascular: Rate and Rhythm: Normal rate and regular rhythm. Pulses: Normal pulses. Heart sounds: Normal heart sounds. No murmur heard. No friction rub. Pulmonary: Effort: Pulmonary effort is normal. Breath sounds: Normal breath sounds. No wheezing, rhonchi or rales. Breast: Declines a breast exam. Abdominal: General: Bowel sounds are normal. Palpations: Abdomen is soft. There is no hepatomegaly, splenomegaly or mass. Tenderness: There is no abdominal tenderness. Musculoskeletal: General: Contracted deformities noted in both hands. Normal range of motion. Cervical back: Muscle tension noted in cervical region. Right lower leg: No edema. Left lower leg: No edema. Lymphadenopathy: Cervical: No cervical adenopathy. Skin: General: Skin is warm and dry. Coloration: Skin is not jaundiced or pale. Findings: No erythema. Neurological: Mental Status: Alert and oriented to person, place, and time. Motor: No weakness. Gait: Gait normal. Psychiatric: Mood and Affect: Mood normal. Behavior: Behavior normal. Thought Content: Thought content normal. Judgment: Judgment normal. Data Reviewed Labs: Imaging/Testing: BECKY Lambert CNP 02/27/2023 3:21 PM documented in this encounter [facility] 02-14-2023 Telephone encounter Note Okay, thank you [facility] 02-14-2023 Miscellaneous Notes Okay, thank you Scheduled. She wanted you to know she will be having an ECHO done at [place] as well. Rx sent, she will need to have her level rechecked in 4 weeks. Christa called back, she is fine with switching to Rosuvastatin. Notified pts daughter, Marilu, she is going to give Christa these results and have her call us to let us know if she'd like to switch to Rosuvastatin. Left a message to return call. Will try other number listed in chart next time. Left a message to return call. ----- Message from BECKY Lambert CNP sent at 02/11/2023 8:21 AM EST ----- Bad cholesterol levels have increased. Triglyceride levels have improved since previous check. If she has been taking the higher dose of Pravastatin and not missing any doses I recommend she switch to Rosuvastatin to help bring her bad cholesterol levels down more. Liver enzymes are normal. Left a message to return call. documented in this encounter [facility] 02-14-2023 Telephone encounter Note Scheduled. She wanted you to know she will be having an ECHO done at [place] as well. [facility] 02-14-2023 Telephone encounter Note Prescription Request: Last medication check: 02/08/23 Last physical exam: 12/21/21 Next scheduled appointment: 02/27/23 CSA on file (date): 11/29/22 Last urine drug screen: none Last date of refill on this medication 01/15/23 90 capsules no refill [facility] 02-14-2023 Miscellaneous Notes Prescription Request: Last medication check: 02/08/23 Last physical exam: 12/21/21 Next scheduled appointment: 02/27/23 CSA on file (date): 11/29/22 Last urine drug screen: none Last date of refill on this medication 01/15/23 90 capsules no refill documented in this encounter [facility] 02-13-2023 Telephone encounter Note Rx sent, she will need to have her level rechecked in 4 weeks. [facility] 02-13-2023 Telephone encounter Note Christa called back, she is fine with switching to Rosuvastatin. [facility] 02-13-2023 Telephone encounter Note Notified pts daughter, Marilu, she is going to give Christa these results and have her call us to let us know if she'd like to switch to Rosuvastatin. [facility] [employer] 02-13-2023 Telephone encounter Note Left a message to return call. Will try other number listed in chart next time. [facility] 02-12-2023 Telephone encounter Note Left a message to return call. [facility] 02-11-2023 Telephone encounter Note ----- Message from BECKY Lambert CNP sent at 02/11/2023 8:21 AM EST ----- Bad cholesterol levels have increased. Triglyceride levels have improved since previous check. If she has been taking the higher dose of Pravastatin and not missing any doses I recommend she switch to Rosuvastatin to help bring her bad cholesterol levels down more. Liver enzymes are normal. Left a message to return call. [facility] [employer] 02-08-2023 History of Presen t illness Narrative Patient here for port flush, Additional labs drawn per order per patient request for outside provider. 1330 Ordered treatment completed. Patient discharged without any issues. Patient has a copy of next infusion appointment and verbalizes understanding. All questions answered. documented in this encounter [facility] 02-08-2023 History of Presen t illness Narrative Images from the original note were not included. 02/08/2023 Christa Quinteros (: 1945) is a 77 y.o. female , Established patient, here for evaluation of the following chief complaint(s): Hyperlipidemia, Disability (Requesting handicap placard rx and needs form for utilities completed), and Health Maintenance (AWV scheduled for Shingrix or Flu vaccine) ASSESSMENT/PLAN: 1. Scleroderma (CMS/HCC) (HCC) - Handicap Placard - Stable. Handicap placard printed. 2. Neuropathy - Handicap Placard - Stable with Gabapentin. Will continue current treatment plan. 3. Mixed hyperlipidemia - pravastatin (Pravachol) 40 MG tablet; Take 1 tablet (40 mg) by mouth daily., Starting Sat02/08/2023, Normal - Lipid panel - ALT - AST - Will notify of blood work results. 4. CAD in [place] artery - Lipid panel - ALT - AST - pravastatin (Pravachol) 40 MG tablet; Take 1 tablet (40 mg) by mouth daily., Starting Sat02/08/2023, Normal - Will notify of blood work results. 5. Anxiety - LORazepam (Ativan) 1 MG tablet; Take 1 tablet (1 mg) by mouth Daily as needed for anxiety., Starting Sat02/08/2023, Normal - Stable with PRN Lorazepam. Will continue current treatment plan. - [place]ARRS report reviewed with no discrepancies. CSA signed in November 2022. Follow up in 19 days (on 02/27/2023) for Next scheduled follow-up. SUBJECTIVE/OBJECTIVE: SIMONE Goodwin presents today to discuss getting paperwork completed for assigned handicap parking at her apartment complex. Has deformities in both her hands from scleroderma that makes it hard to carry things and if she cannot park close to her apartment she struggles to get everything home. Also has neuropathy which can impact how far and how long she can walk. Is also due to have her cholesterol levels rechecked. Had the dose of her Pravastatin increased to 40 mg about 1 month ago. Needs a refill on this today. Also needs a refill on her Lorazepam for her anxiety. States this is helpful. CSA signed in November. Review of Systems Respiratory: Negative for chest tightness and shortness of breath. Cardiovascular: Negative for chest pain. Musculoskeletal: Positive for gait problem. Psychiatric/Behavioral: The patient is nervous/anxious. Vitals: 02/08/23 0901 02/08/23 0937 BP: (!) 142/56 128/72 Pulse: 52 SpO2: 92% Weight: 127 lb (57.6 kg) Height: 5' 2 (1.575 m) Body mass index is 23.23 kg/m . Physical Exam Constitutional: General: She is not in acute distress. Appearance: She is not ill-appearing or diaphoretic. Cardiovascular: Rate and Rhythm: Normal rate and regular rhythm. Heart sounds: Normal heart sounds. No murmur heard. No friction rub. Pulmonary: Effort: Pulmonary effort is normal. Musculoskeletal: Comments: Contracted deformities noted to both hands/fingers of both hands. Skin: General: Skin is warm and dry. Neurological: Mental Status: She is alert and oriented to person, place, and time. Psychiatric: Mood and Affect: Mood normal. Behavior: Behavior normal. Thought Content: Thought content normal. Judgment: Judgment normal. An electronic signature was used to authenticate this note. BECKY Lambert CNP 02/08/2023 9:37 AM Patient was verified by name and . documented in this encounter [facility] 01-15-2023 Telephone encounter Note Prescription Request: Last medication check: 10/02/22 Last physical exam: 12/21/21 Next scheduled appointment: 02/01/23 Last date of refill on this medication 11/21/22 [facility] 01-15-2023 Miscellaneous Notes Prescription Request: Last medication check: 10/02/22 Last physical exam: 12/21/21 Next scheduled appointment: 02/01/23 Last date of refill on this medication 11/21/22 documented in this encounter [facility] 01-02-2023 History of Presen t illness Narrative Patient was verified by name and . Images from the original note were not included. 01/02/2023 Christa Quinteros (: 1945) is a 77 y.o. female , Established patient, here for evaluation of the following chief complaint(s): Blood Work (TSH), Health Maintenance (No COVID vaccines/Hep C screen-agrees/Shingrix-unsure/Fl u vaccine-unsure/DEXA-declines), and UTI ASSESSMENT/PLAN: 1. Urinary tract infection symptoms - POCT Urinalysis dipstick - Comprehensive metabolic panel - Urine culture (clean catch) - UA positive for nitrites and leukocytes. Will start on Cipro and send her urine for culture. - Follow up with urology as directed. 2. Recurrent UTI - POCT Urinalysis dipstick - Comprehensive metabolic panel - ciprofloxacin (Cipro) 500 MG tablet; Take 1 tablet (500 mg) by mouth 2 times daily for 7 days., Starting Sat01/02/2023, Until Sat01/09/2023, Normal - Urine culture (clean catch) 3. Urinary frequency - Comprehensive metabolic panel - ciprofloxacin (Cipro) 500 MG tablet; Take 1 tablet (500 mg) by mouth 2 times daily for 7 days., Starting Sat01/02/2023, Until Sat01/09/2023, Normal - Urine culture (clean catch) 4. Urgency of urination - Comprehensive metabolic panel - ciprofloxacin (Cipro) 500 MG tablet; Take 1 tablet (500 mg) by mouth 2 times daily for 7 days., Starting Sat01/02/2023, Until Sat01/09/2023, Normal - Urine culture (clean catch) 5. Leukocytes in urine - ciprofloxacin (Cipro) 500 MG tablet; Take 1 tablet (500 mg) by mouth 2 times daily for 7 days., Starting Sat01/02/2023, Until Sat01/09/2023, Normal - Urine culture (clean catch) 6. Scleroderma (CMS/HCC) (HCC) - Comprehensive metabolic panel - Will notify of blood work results. 7. Hypothyroidism, unspecified type - TSH - Stable with Levothyroxine. Will continue current treatment plan. 8. CAD in [place] artery - Lipid panel - Comprehensive metabolic panel - Stable with Pravastatin. Will continue current treatment plan. 9. Hyperlipidemia, unspecified hyperlipidemia type - Lipid panel - Comprehensive metabolic panel - Stable with Pravastatin. Will continue current treatment plan. 10. Anxiety - LORazepam (Ativan) 1 MG tablet; Take 1 tablet (1 mg) by mouth Daily as needed for anxiety., Starting 01/02/2023, Normal - Comprehensive metabolic panel - OARRS report reviewed with no discrepancies. CSA signed in November 2022. 11. Shortness of breath - Printed order for CXR. Will get this completed for further evaluation. 12. Need for hepatitis C screening test - Hepatitis C antibody - Will notify of blood work results. 13. Screening for diabetes mellitus - Comprehensive metabolic panel - Will notify of blood work results. Follow up in about 4 weeks (around 01/30/2023) for AWV. SUBJECTIVE/OBJECTIVE: SIMONE Goodwin presents today with concerns of signs of recurrent UTI's. Has followed up with urology and is planning to have a cystoscopy done for further evaluation. Last completed a prescription of Macrobid about three weeks ago and feels like symptoms have never fully resolved. Would like another UA done today. Has felt chilled but denies known fevers. Denies nausea or vomiting or flank pain. Has also been struggling with feeling more short of breath. Had an order placed in June for a CXR but has not gotten this done yet. Shortness of breath is with exertion. Denies shortness of breath at rest. Has scleroderma and is not sure if the shortness of breath is associated with this or not. Is also due for her AWV and would like to have her fasting blood work drawn while she is here today for her AWV and her chronic health conditions. Will get her AWV scheduled. Is also requesting a refill on her Lorazepam for her anxiety. Will take this nightly as needed and it works well for her. Health Maintenance: Declines a flu vaccination. Declines to be vaccinated for shingles. Would like screening for Hep C. See ROS for additional information. Review of Systems Constitutional: Positive for chills. Negative for fever. Respiratory: Positive for shortness of breath. Negative for cough, chest tightness and wheezing. Cardiovascular: Negative for chest pain. Gastrointestinal: Negative for abdominal distention, abdominal pain, blood in stool, nausea and vomiting. Genitourinary: Positive for dysuria, frequency and urgency. Negative for difficulty urinating, flank pain and hematuria. Vitals: 01/02/23 1343 01/02/23 1356 BP: 92/62 112/62 Pulse: 55 SpO2: 98% Weight: 127 lb (57.6 kg) Height: 5' 2 (1.575 m) Body mass index is 23.23 kg/m . Physical Exam Constitutional: General: She is not in acute distress. Appearance: She is not ill-appearing or diaphoretic. Cardiovascular: Rate and Rhythm: Normal rate and regular rhythm. Heart sounds: Normal heart sounds. No murmur heard. No friction rub. Pulmonary: Effort: Pulmonary effort is normal. Breath sounds: Normal breath sounds. No wheezing, rhonchi or rales. Abdominal: General: Bowel sounds are normal. Palpations: Abdomen is soft. Tenderness: There is no right CVA tenderness, left CVA tenderness, guarding or rebound. Skin: General: Skin is warm and dry. Neurological: Mental Status: She is alert and oriented to person, place, and time. Psychiatric: Mood and Affect: Mood normal. Behavior: Behavior normal. Thought Content: Thought content normal. Judgment: Judgment normal. An electronic signature was used to authenticate this note. BECKY Lambert CNP 01/02/2023 3:13 PM documented in this encounter [facility] 12-19-2022 History of Presen t illness Narrative Patient is here for port flush, no labs ordered 1433 Ordered treatment completed. Patient discharged without any issues. Patient has a copy of next infusion appointment and verbalizes understanding. All questions answered. documented in this encounter [facility] 12-04-2022 Telephone encounter Note Noted. Agree with disposition. [facility] 12-04-2022 Miscellaneous Notes Noted. Agree with disposition. S: The patient is calling the [facility] About a headache B: She has had this for three weeks. A: Her balance is off in the morning and it improves slightly during the day. This has been present for a week and is not vertigo or dizziness but she admits that she is holding onto things because she feels as though she is going to fall. The headache responds to OTC medication but it always comes back. The headaches are fairly severe. No neurological symptom noted - she has vision issues but this is being taken care of by her eye doctor and a treatment plan is in place. R: Concerned with ongoing severe headaches and now balance issues that make her feel as though she is going to fall; she will go to the [place] ED. Appointment also made in the office at her request; she will only see Gifty and this is not until December so the ED is recommended today to rule out a stroke. Reason for Disposition Unable to walk without falling Protocols used: [id number] documented in this encounter [facility] 12-04-2022 Telephone encounter Note S: The patient is calling the [facility] About a headache B: She has had this for three weeks. A: Her balance is off in the morning and it improves slightly during the day. This has been present for a week and is not vertigo or dizziness but she admits that she is holding onto things because she feels as though she is going to fall. The headache responds to OTC medication but it always comes back. The headaches are fairly severe. No neurological symptom noted - she has vision issues but this is being taken care of by her eye doctor and a treatment plan is in place. R: Concerned with ongoing severe headaches and now balance issues that make her feel as though she is going to fall; she will go to the [place] ED. Appointment also made in the office at her request; she will only see Gifty and this is not until December so the ED is recommended today to rule out a stroke. Reason for Disposition Unable to walk without falling Protocols used: [id number] [facility] 11-29-2022 Note Reviewed chart. Refi ll appropriate. Rx sent. Oarrs reviewed and consistent with treatment plan. [facility] 11-29-2022 Telephone encounter Note Reviewed chart. Refill appropriate. Rx sent. Oarrs reviewed and consistent with treatment plan. [facility] 11-29-2022 Miscellaneous Notes Reviewed chart. Refill appropriate. Rx sent. Oarrs reviewed and consistent with treatment plan. Prescription Request: Last medication check: 05/22/21 Last physical exam: 12/21/21 Next scheduled appointment: none CSA-signed today when she came in to request refill since previous CSA expires 12/16/22 Last date of refill on this medication 09/12/22 documented in this encounter [facility] 11-29-2022 Telephone encounter Note Prescription Request: Last medication check: 05/22/21 Last physical exam: 12/21/21 Next scheduled appointment: none CSA-signed today when she came in to request refill since previous CSA expires 12/16/22 Last date of refill on this medication 09/12/22 [facility] 11-21-2022 Telephone encounter Note Prescription Request: Last medication check: 05/22/21 Last physical exam: 12/21/21 Next scheduled appointment: none Last date of refill on this medication 09/20/22 [facility] 11-21-2022 Miscellaneous Notes Prescription Request: Last medication check: 05/22/21 Last physical exam: 12/21/21 Next scheduled appointment: none Last date of refill on this medication 09/20/22 documented in this encounter [facility] 11-13-2022 History of Presen t illness Narrative Images from the original note were not included. Daron Odonnell MD 11/13/2022 at 3:28 PM UROLOGY INITIAL OFFICE VISIT PATIENT NAME: Christa Quinteros DATE OF : 1945 TODAY'S DATE: 11/13/2022 Chief Complaint: Chief Complaint Patient presents with New Patient Jud, dysuria, painful urination HISTORY OF PRESENT ILLNESS: Ms. Quinteros is a 77 y.o. female who presents with recurrent UTI She does have scleroderma She was in ER 09/05/22 with symptoms of UTI. Urine culture at that time was negative for infection She does continue to have dysuria and pubic pain Urine culture from 09/05, 09/20 negative Urine culture from 10/02/22 positive Urine culture from 02/15 and 03/19 positive for infection REVIEW OF SYSTEMS: Review of Systems Constitutional: Negative for activity change, chills, fatigue and fever. Gastrointestinal: Negative for abdominal distention and abdominal pain. Genitourinary: Positive for difficulty urinating, frequency and urgency. Past Medical History: Past Medical History: Diagnosis Date Acid reflux Allergic rhinitis, cause unspecified Arthritis Calculus of kidney Chest pain 04/16/2019 Chronic respiratory failure with hypoxia (CMS/HCC) ([facility]) 03/17/2020 COVID-19 virus infection 03/17/2020 Cystitis, unspecified Diarrhea Dysthymic disorder History of blood transfusion Lesion of soft tissue MULTIPLE AREAS ; SCHEDULED FOR THE EXCISION ON 12/02/2017 Mastodynia Neuropathy Other malaise and fatigue Pain in limb left hip Personal history of fall Scleroderma (CMS/HCC) (HCC) Sprain of ankle, unspecified site Sprain of neck Systemic sclerosis (CMS/HCC) ([facility]) Unspecified essential hypertension Unspecified hypothyroidism Urge incontinence Past Surgical History: Past Surgical History: Procedure Laterality Date APPENDECTOMY BLADDER SUSPENSION CARDIAC PROCEDURE 03/2019 nonobstructive disease CATARACT EXTRACTION Left 09/27/2020 CATARACT EXTRACTION Right 09/15/2020 CHOLECYSTECTOMY COLONOSCOPY 2012 EXTREMITY SURGERY Bilateral calcium deposits removed inner thighs HAND SURGERY LONG LONG TIME AGO HYSTERECTOMY TUNNELED VENOUS CATHETER PLACEMENT Current Medications: Prior to Admission medications Medication Sig Start Date End Date Taking? Authorizing Provider ascorbic acid (Vitamin C) 500 MG ER capsule Take 500 mg by mouth daily. Yes Historical Provider, aspirin 81 MG chewable tablet Chew 1 tablet every morning. 09/28/21 Yes Historical Provider, baclofen (Lioresal) 10 MG tablet TAKE ONE AND ONE-HALF TABLET BY MOUTH THREE TIMES DAILY NEEDED FOR MUSCLE SPASM 10/19/22 Yes Erik Gannon MD [id number] e 50-325-40 MG tablet Take 1 tablet by mouth every 4 hours as needed. Yes Historical Provider, cholecalciferol (Vitamin D-3) 25 MCG (1000 UT) capsule Take by mouth. Yes Historical Provider, enalapril (Vasotec) 10 MG tablet TAKE 1 TABLET (10 MG) BY MOUTH DAILY. 09/20/22 Yes Erik Gannon MD fluorometholone (FML) 0.1 % ophthalmic suspension Administer 1 drop into both eyes in the morning and 1 drop before bedtime. 11/29/17 Yes Historical Provider, gabapentin (Neurontin) 100 MG capsule TAKE 1 CAPSULE (100 MG) BY MOUTH 3 TIMES DAILY. 10/19/22 Yes Erik Gannon MD levothyroxine (Synthroid, Levoxyl) 50 MCG tablet TAKE 1 TABLET (50 MCG) BY MOUTH EVERY MORNING. 09/20/22 Yes Erik Gannon MD LORazepam (Ativan) 1 MG tablet Take 1 tablet (1 mg) by mouth Daily as needed for anxiety. 09/12/22 Yes Gifty Clark APRN - [facility] metoprolol succinate XL (Toprol-XL) 25 MG 24 hr tablet 09/19/22 Yes Historical Provider, multivitamin with minerals (Cerovite) 18-400 mg-mcg tablet tablet Take by mouth. Yes Historical Provider, omeprazole OTC (PriLOSEC OTC) 20 MG EC tablet Take 1 tablet by mouth every morning. 09/28/21 Yes Historical Provider, pravastatin (Pravachol) 20 MG tablet take 1 tablet by mouth once daily 05/24/22 Yes Gifty Clark APRN - [employer] CLAIMS EXAMINER sertraline (Zoloft) 50 MG tablet TAKE ONE AND ONE-HALF TABLET BY MOUTH EVERYDAY 09/20/22 Yes Erik Gannon MD Sucralfate (CARAFATE PO) Take by mouth. Yes Historical Provider, nitroglycerin (Nitrostat) 0.4 MG SL tablet up to max of 3 total doses. If no relief after 1 dose, call 911. 04/18/19 Historical Provider, Allergies: Azithromycin, Metoclopramide, Naproxen, Sulfa antibiotics, Sulfamethoxazole-trimethoprim, and Amoxicillin-pot clavulanate Social History: Social History Socioeconomic History Marital status: Spouse name: Not on file Number of children: Not on file Years of education: Not on file Highest education level: Not on file Occupational History Not on file Tobacco Use Smoking status: Never Smokeless tobacco: Never Vaping Use Vaping Use: Never used Substance and Sexual Activity Alcohol use: No Alcohol/week: 0.0 standard drinks of alcohol Drug use: No Sexual activity: Not on file Other Topics Concern Not on file Social History Narrative 48 h/o kate Murillo, lives alone 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 2 children 3 GC and 4 GGC Social Determinants of Health Financial Resource Strain: Not on file Food Insecurity: Not on file Transportation Needs: Not on file Physical Activity: Not on file Stress: Not on file Social Connections: Not on file Intimate Partner Violence: Not on file Housing Stability: Not on file Family History: @FAMXND@ PHYSICAL EXAM: VITALS: Ht 5' 2 (1.575 m) Wt 130 lb (59 kg) BMI 23.78 kg/m Physical Exam Vitals reviewed. Constitutional: Appearance: Normal appearance. Cardiovascular: Rate and Rhythm: Normal rate. Abdominal: General: Abdomen is flat. Palpations: Abdomen is soft. Musculoskeletal: General: Normal range of motion. Skin: General: Skin is warm and dry. Neurological: Mental Status: She is alert. DATA: WBC Lab Results Component Value Date WBC 5.1 09/05/2022 BMP Lab Results Component Value Date NA 143 09/05/2022 K 4.1 09/05/2022 CL 112 (H) 09/05/2022 CO2 21 (L) 09/05/2022 CO2 27 07/19/2022 BUN 16 09/05/2022 BUN 12 07/19/2022 CREATININE 0.76 09/05/2022 CREATININE 0.55 (L) 07/19/2022 GLUCOSE 100 09/05/2022 GLUCOSE 107 (H) 07/19/2022 CALCIUM 9.6 09/05/2022 CALCIUM 9.4 07/19/2022 PSA No results found for: PSA UA Lab Results Component Value Date APPEARANCE Clear 08/04/2020 COLORU Yellow 09/05/2022 LABSPEC 1.021 08/04/2020 LABPH 7.0 08/04/2020 GLUCOSEU Normal 09/05/2022 UROBILINOGEN 1.0 11/13/2022 UROBILINOGEN Normal 09/05/2022 BILIRUBINUR Negative 11/13/2022 OCBU Negative 08/04/2020 Review: CT ABDOMEN AND PELVIS WITH CONTRAST CLINICAL INDICATION: Abdominal pain, acute, nonlocalized TECHNIQUE: CT scan of the abdomen and pelvis, with IV contrast. Multiplanar reformations. Dose reduction was employed with automated exposure control. COMPARISON: July,. FINDINGS: Abdomen: Visualized lung bases show probable atelectasis or scarring bilaterally. Small hiatal hernia, about the same. Gallbladder surgically absent, with biliary duct prominence probably postsurgical. Liver without significant abnormality. Spleen mildly enlarged measuring 14 cm in maximal AP dimension without significant abnormality. Pancreas without significant abnormality. Kidneys without significant abnormality. Probable very small renal cysts again noted bilaterally. Adrenal glands without significant abnormality. Pelvis: Bowel grossly unremarkable. Appendix not confidently identified. No significant, free peritoneal fluid or apparent adenopathy. Diffuse aortoiliac calcification without aneurysmal dilatation. Uterus surgically absent. Impression deformity in T12 level, about same. Degenerative change scattered in the lumbar spine. Bilateral L5 pars defects and grade 1 anterolisthesis in the L5-S1 level, also similar. Small, fat-containing umbilical hernia, about same. IMPRESSION: 1. No acute findings or significant interval change. Please see above for further details. Will plan for cystoscopy next visit. I explained this procedure in detail including all risks, benefit and alternatives. I explained the possibility of urinary retention, infection and bleeding. Assessment and Plan Diagnoses and all orders for this visit: Dysuria Recurrent UTI - AMB POC URINALYSIS DIP STICK AUTO W/O MICRO (CRN) Recurrent UTI, E coli CT shows no stones or hydronephrosis Plan for cystoscopy Start cystex Follow up for cysto. Daron Odonnell MD 11/13/22 3:28 PM documented in this encounter [facility] 11-13-2022 Instructions Daron Odonnell MD - 11/13/2022 3:00 PM EDT Start Cystex liquid daily for UTI prevention. It is available over the counter at many drug stores, including [employer]. documented in this encounter [facility] 10-04-2022 Note Oarrs reviewed consi stent with treatment plan. Reviewed chart. Refill appropriate. Rx sent. [facility] 10-04-2022 Telephone encounter Note Oarrs reviewed consistent with treatment plan. Reviewed chart. Refill appropriate. Rx sent. [facility] 10-04-2022 Miscellaneous Notes Oarrs reviewed consistent with treatment plan. Reviewed chart. Refill appropriate. Rx sent. Prescription Request: Last medication check: 05/22/21 Last physical exam: 12/21/21 Next scheduled appointment: none CSA on file (date): 12/21/21 Last urine drug screen: none Last date of refill on this medication 09/06/22 30 days documented in this encounter [facility] 10-04-2022 Telephone encounter Note Prescription Request: Last medication check: 05/22/21 Last physical exam: 12/21/21 Next scheduled appointment: none CSA on file (date): 12/21/21 Last urine drug screen: none Last date of refill on this medication 09/06/22 30 days [facility] 10-04-2022 Telephone encounter Note Received text from call center, patient was having significant UTI symptoms at her culture came back positive but no sensitivities Macrobid was sent. [facility] 10-04-2022 Miscellaneous Notes Received text from call center, patient was having significant UTI symptoms at her culture came back positive but no sensitivities Macrobid was sent. documented in this encounter [facility] 10-03-2022 Telephone encounter Note S: Patient spoke with [facility] nurse regarding Urine culture was positive for E.Coli B: Onset of symptoms/concern - Last night Office visit 10/02/22 A: Was miserable all night long. Having burning, frequency, wetting before I can get to toilet. Pt cultures came back and they were positive for E-coli. Pt wanting a script sent into pharmacy please. Thank you R: Will message provider telephone installer. Spoke with Dr. Gannon via secure chat. Rx for macrobid sent, most likely nothing was sent because no sensitivity was back and she has been on a lot of atb. Have no idea if there is resistance! . Informed pt- Verbalized understanding. Reason for Disposition [1] Follow-up call from patient regarding patient's clinical status AND [2] information urgent Protocols used: PCP Call - No [id number] [facility] 10-03-2022 Miscellaneous Notes S: Patient spoke with [facility] nurse regarding Urine culture was positive for E.Coli B: Onset of symptoms/concern - Last night Office visit 10/02/22 A: Was miserable all night long. Having burning, frequency, wetting before I can get to toilet. Pt cultures came back and they were positive for E-coli. Pt wanting a script sent into pharmacy please. Thank you R: Will message provider telephone installer. Spoke with Dr. Gannon via secure chat. Rx for macrobid sent, most likely nothing was sent because no sensitivity was back and she has been on a lot of atb. Have no idea if there is resistance! . Informed pt- Verbalized understanding. Reason for Disposition [1] Follow-up call from patient regarding patient's clinical status AND [2] information urgent Protocols used: PCP Call - No [id number] documented in this encounter [facility] 10-02-2022 Evaluation + Plan note Associated Problem(s): Vaginal irritation Patient reports vaginal irritation which may be contributing to her dysuria that she is experiencing. Will send vaginal swab to evaluate for yeast or other infection [facility] 10-02-2022 Miscellaneous Notes Associated Problem(s): Vaginal irritation Patient reports vaginal irritation which may be contributing to her dysuria that she is experiencing. Will send vaginal swab to evaluate for yeast or other infection Associated Problem(s): Urinary tract infection symptoms UA positive blood positive nitrates positive leuks. Patient has been recently treated with ciprofloxacin for UTI with urine culture that was negative for infection on 09/20/2022. At this time we will wait for urine culture to result prior to treating. Associated Problem(s): Scleroderma (CMS/HCC) (HCC) Stable. Not currently seeing specialist. Follows up with ophthalmology yearly Associated Problem(s): Pulmonary hypertension (HCC) Stable. Follow-up with pulmonology as directed documented in this encounter [facility] 10-02-2022 Evaluation + Plan note Associated Problem(s): Urinary tract infection symptoms UA positive blood positive nitrates positive leuks. Patient has been recently treated with ciprofloxacin for UTI with urine culture that was negative for infection on 09/20/2022. At this time we will wait for urine culture to result prior to treating. [facility] 10-02-2022 Evaluation + Plan note Associated Problem(s): Scleroderma (CMS/HCC) (HCC) Stable. Not currently seeing specialist. Follows up with ophthalmology yearly [facility] 10-02-2022 Evaluation + Plan note Associated Problem(s): Pulmonary hypertension (HCC) Stable. Follow-up with pulmonology as directed [facility] 10-02-2022 History of Presen t illness Narrative Images from the original note were not included. 10/02/2022 Christa Quinteros (: 1945) is a 77 y.o. female , Established patient, here for evaluation of the following chief complaint(s): Difficulty Urinating and Painful Urination ASSESSMENT/PLAN: 1. Urinary tract infection symptoms Assessment & Plan: UA positive blood positive nitrates positive leuks. Patient has been recently treated with ciprofloxacin for UTI with urine culture that was negative for infection on 09/20/2022. At this time we will wait for urine culture to result prior to treating. Orders: - POCT Urinalysis dipstick - Urine culture (clean catch) 2. Vaginal irritation Assessment & Plan: Patient reports vaginal irritation which may be contributing to her dysuria that she is experiencing. Will send vaginal swab to evaluate for yeast or other infection Orders: - Sureswab(R) Advanced Vaginitis, TMA ([facility]) 3. Scleroderma ([facility]/HCC) ([facility]) Assessment & Plan: Stable. Not currently seeing specialist. Follows up with ophthalmology yearly 4. Pulmonary hypertension ([facility]) Assessment & Plan: Stable. Follow-up with pulmonology as directed Follow up for as directed pending test results. SUBJECTIVE/OBJECTIVE: HPI - Christa Quinteros (: 1945) is a 77 y.o. female , Established patient, here for the evaluation of the following chief complaint(s): Difficulty Urinating and Painful Urination Dysuria. Patient was treated for urinary tract infection on 09/05/2022-the culture ended up being negative. Patient has been treated for UTI again and resulting urine culture from September 20, 2022 was negative. Patient recently finished antibiotics ciprofloxacin on 09/22/22. For UTI with that last negative culture. She does state that she had gotten diarrhea from the medication but now has resolved, states she did feel better for a few days, after completing the antibiotic however symptoms gradually returned. She reports difficulty with starting stream and burning with urination. Denies any vaginal discharge, mild itching to the area. No fever or chills, no flank pain. Prior to Admission medications Medication Sig Start Date End Date Taking? Authorizing Provider ascorbic acid (Vitamin C) 500 MG ER capsule Take 500 mg by mouth daily. Yes Historical Provider, aspirin 81 MG chewable tablet Chew 1 tablet every morning. 09/28/21 Yes Historical Provider, baclofen (Lioresal) 10 MG tablet TAKE ONE AND ONE-HALF TABLET BY MOUTH THREE TIMES DAILY NEEDED FOR MUSCLE SPASM 09/20/22 Yes Chrissy Taylor APRN - [facility] [id number] e 50-325-40 MG tablet Take 1 tablet by mouth every 4 hours as needed. Yes Historical Provider, cholecalciferol (Vitamin D-3) 25 MCG (1000 UT) capsule Take by mouth. Yes Historical Provider, enalapril (Vasotec) 10 MG tablet TAKE 1 TABLET (10 MG) BY MOUTH DAILY. 09/20/22 Yes Erik Gannon MD fluorometholone (FML) 0.1 % ophthalmic suspension Administer 1 drop into both eyes in the morning and 1 drop before bedtime. 11/29/17 Yes Historical Provider, gabapentin (Neurontin) 100 MG capsule TAKE 1 CAPSULE (100 MG) BY MOUTH 3 TIMES DAILY. 09/06/22 Yes BECKY Grant CNP levothyroxine (Synthroid, Levoxyl) 50 MCG tablet TAKE 1 TABLET (50 MCG) BY MOUTH EVERY MORNING. 09/20/22 Yes Erik Gannon MD LORazepam (Ativan) 1 MG tablet Take 1 tablet (1 mg) by mouth Daily as needed for anxiety. 09/12/22 Yes BECKY Lambert CNP metoprolol succinate XL (Toprol-XL) 25 MG 24 hr tablet 09/19/22 Yes Historical Provider, multivitamin with minerals (Cerovite) 18-400 mg-mcg tablet tablet Take by mouth. Yes Historical Provider, nitroglycerin (Nitrostat) 0.4 MG SL tablet up to max of 3 total doses. If no relief after 1 dose, call 911. 04/18/19 Yes Historical Provider, omeprazole OTC (PriLOSEC OTC) 20 MG EC tablet Take 1 tablet by mouth every morning. 09/28/21 Yes Historical ProviderMD pravastatin (Pravachol) 20 MG tablet take 1 tablet by mouth once daily 05/24/22 Yes BECKY Lambert CNP sertraline (Zoloft) 50 MG tablet TAKE ONE AND ONE-HALF TABLET BY MOUTH EVERYDAY 09/20/22 Yes Erik Gannon MD Sucralfate (CARAFATE PO) Take by mouth. Yes Historical Provider, Review of Systems Constitutional: Negative for appetite change, chills, fatigue and fever. Respiratory: Negative. Cardiovascular: Negative. Gastrointestinal: Positive for nausea (Mild a few days ago now resolved). Negative for abdominal pain, diarrhea and vomiting. Genitourinary: Positive for difficulty urinating and dysuria. Negative for flank pain, frequency, genital sores, vaginal discharge and vaginal pain. Vitals: 10/02/22 0756 BP: 134/62 Pulse: 88 Resp: 16 Temp: 36.6 C (97.8 F) TempSrc: Infrared Weight: 130 lb (59 kg) Physical Exam Constitutional: General: She is not in acute distress. Appearance: Normal appearance. She is not ill-appearing. HENT: Head: Normocephalic and atraumatic. Mouth/Throat: Mouth: Mucous membranes are moist. Pharynx: Oropharynx is clear. Eyes: Conjunctiva/sclera: Conjunctivae normal. Pulmonary: Effort: Pulmonary effort is normal. Breath sounds: Normal breath sounds. Abdominal: General: Abdomen is flat. Bowel sounds are normal. Palpations: Abdomen is soft. Genitourinary: Labia: Right: No rash, tenderness, lesion or injury. Left: No rash, tenderness, lesion or injury. Urethra: No prolapse, urethral pain or urethral swelling. Comments: No speculum exam today. External exam with vaginal atrophy, obtained vaginal swab. No discharge noted, labia mildly erythematous nontender to palpation Musculoskeletal: Right lower leg: No edema. Left lower leg: No edema. Neurological: Mental Status: She is alert and oriented to person, place, and time. An electronic signature was used to authenticate this note. BECKY Grant CNP 10/02/2022 3:47 PM Patient identified by name and date of . Urine specimen cup labeled with patient name and date of . Urine cup and wipe given to patient. Clean catch urine collected from patient. POCT Urine ordered and signed by provider. POCT urine results entered and were sent to provider. Urine culture was ordered and signed by provider. Urine culture was obtained and specimen tube was labeled with patients name and date of , requisition was printed off, verified patient information, then given to [facility] lab. documented in this encounter [facility] 09-21-2022 Evaluation + Plan note Associated Problem(s): Acute cystitis without hematuria Urinalysis shows a trace of leukocytes and blood, we will send it for culture, she is to restart her Cipro she should have 2 more days and we will treat this accordingly as to what the culture showed. [facility] 09-21-2022 Miscellaneous Notes Associated Problem(s): Acute cystitis without hematuria Urinalysis shows a trace of leukocytes and blood, we will send it for culture, she is to restart her Cipro she should have 2 more days and we will treat this accordingly as to what the culture showed. documented in this encounter [facility] 09-20-2022 History of Presen t illness Narrative Patient verified by last name and date of . Images from the original note were not included. 09/20/2022 Christa Quinteros (: 1945) is a 76 y.o. female , Established patient, here for evaluation of the following chief complaint(s): ER Follow-up ([facility] -09/07/22 uti and abd pain referred to gastro /Gave iv atb and oral atb ) ASSESSMENT/PLAN: 1. Acute cystitis without hematuria Assessment & Plan: Urinalysis shows a trace of leukocytes and blood, we will send it for culture, she is to restart her Cipro she should have 2 more days and we will treat this accordingly as to what the culture showed. Orders: - POCT urinalysis dipstick manually resulted - Urine culture Follow up if symptoms worsen or fail to improve. SUBJECTIVE/OBJECTIVE: HPI -Christa comes in today for follow-up on her hospital emergency room visit where she was complaining of some yellowish-white stool and ended up being diagnosed with a urinary tract infection and put on antibiotics. She says she started Cipro and her diarrhea got worse and she became very sore around her anal area so she stopped her antibiotics after 3 days. As her symptoms are better but she still has frequency and some vague dysuria. Review of Systems Constitutional: Negative for chills and fever. Gastrointestinal: Positive for diarrhea. Negative for abdominal pain and constipation. Genitourinary: Positive for dysuria, frequency and urgency. Negative for hematuria. Vitals: 09/20/22 1525 BP: 138/67 Pulse: 58 SpO2: 96% Weight: 133 lb 9.6 oz (60.6 kg) Height: 5' 2 (1.575 m) Physical Exam Vitals and nursing note reviewed. Constitutional: General: She is not in acute distress. Appearance: Normal appearance. HENT: Head: Normocephalic and atraumatic. Mouth/Throat: Mouth: Mucous membranes are moist. Pharynx: Oropharynx is clear. Eyes: Extraocular Movements: Extraocular movements intact. Pupils: Pupils are equal, round, and reactive to light. Cardiovascular: Rate and Rhythm: Normal rate and regular rhythm. Heart sounds: Normal heart sounds. No murmur heard. Pulmonary: Effort: Pulmonary effort is normal. Breath sounds: Normal breath sounds. Abdominal: General: Abdomen is flat. Bowel sounds are normal. Palpations: Abdomen is soft. Tenderness: There is no abdominal tenderness. There is no right CVA tenderness or left CVA tenderness. Musculoskeletal: Cervical back: Neck supple. Lymphadenopathy: Cervical: No cervical adenopathy. Neurological: Mental Status: She is alert. An electronic signature was used to authenticate this note. Erik Gannon MD 09/21/2022 5:33 AM documented in this encounter [facility] 09-20-2022 Telephone encounter Note Reviewed chart. Refill appropriate. RX sent. [facility] 09-20-2022 Miscellaneous Notes Reviewed chart. Refill appropriate. RX sent. Prescription Request: Last medication check: 07/19/22 Last physical exam: 12/21/21 Next scheduled appointment: 09/20/22(TODAY) Last date of refill on this medication 08/23/22 documented in this encounter [facility] 09-20-2022 Telephone encounter Note Prescription Request: Last medication check: 07/19/22 Last physical exam: 12/21/21 Next scheduled appointment: 09/20/22(TODAY) Last date of refill on this medication Zoloft 08/10/22 Levothyroxine 04/25/22 Vasotec 04/25/22 [facility] 09-20-2022 Miscellaneous Notes Prescription Request: Last medication check: 07/19/22 Last physical exam: 12/21/21 Next scheduled appointment: 09/20/22(TODAY) Last date of refill on this medication Zoloft 08/10/22 Levothyroxine 04/25/22 Vasotec 04/25/22 documented in this encounter [facility] [employer] 09-20-2022 Telephone encounter Note Prescription Request: Last medication check: 07/19/22 Last physical exam: 12/21/21 Next scheduled appointment: 09/20/22(TODAY) Last date of refill on this medication 08/23/22 [facility] 09-19-2022 History of Presen t illness Narrative Pt. Here for port flush, labs were not ordered. 1625-Ordered treatment completed. Patient discharged without any issues. Patient has a copy of next infusion appointment and verbalizes understanding. All questions answered. documented in this encounter [facility] [employer] 09-12-2022 History of Presen t illness Narrative Chart reviewed of ED follow up Seen in [facility] ED on 09/05/2022 Reason: Acute cystitis without hematuria Discharge instructions: follow-up with primary care physician and GI. Attempted to outreach to patient her phone is blocked. She does not use [employer]. Message left for CM outreach through PCP office. Pt was seen in office for ED follow-up documented in this encounter [facility] 09-05-2022 Emergency department Note Pt to ER with home health aide. Pt complains od diffuse abd pain off and on x 1 year. Worse x 3 days. States she has been having diarrhea after eating x 1 year. Also state her stools are yellow in color recently. States she has not called Dr. Gannon about this because I can't get ahold of him . Pain today 2/10. Pt alert and oriented x 4. Skin warm and dry. Respirations even and unlabored. documented in this encounter [facility] 09-05-2022 Emergency department Triage note Pt to ER with home health aide. Pt complains od diffuse abd pain off and on x 1 year. Worse x 3 days. States she has been having diarrhea after eating x 1 year. Also state her stools are yellow in color recently. States she has not called Dr. Gannon about this because I can't get ahold of him . Pain today 2/10. Pt alert and oriented x 4. Skin warm and dry. Respirations even and unlabored. [facility] 08-23-2022 Telephone encounter Note Reviewed chart. Refill appropriate. RX sent. [facility] 08-23-2022 Miscellaneous Notes Reviewed chart. Refill appropriate. RX sent. Prescription Request: Last medication check: 05/22/21 Last physical exam: 12/21/21 Next scheduled appointment: none Last date of refill on this medication 07/26/22 135 tablets documented in this encounter [facility] 08-23-2022 Telephone encounter Note Prescription Request: Last medication check: 05/22/21 Last physical exam: 12/21/21 Next scheduled appointment: none Last date of refill on this medication 07/26/22 135 tablets [facility] 08-15-2022 Telephone encounter Note Reviewed chart. Refill appropriate. RX sent. [facility] 08-15-2022 Miscellaneous Notes Reviewed chart. Refill appropriate. RX sent. Prescription Request: Last medication check: 05/22/21 Last physical exam: 12/21/21 Next scheduled appointment: none CSA on file (date): 12/21/21 Last urine drug screen: none Last date of refill on this medication 07/26/22 1 month no refill documented in this encounter [facility] 08-15-2022 Telephone encounter Note Prescription Request: Last medication check: 05/22/21 Last physical exam: 12/21/21 Next scheduled appointment: none CSA on file (date): 12/21/21 Last urine drug screen: none Last date of refill on this medication 07/26/22 1 month no refill [facility] 08-10-2022 Telephone encounter Note Prescription Request: Last medication check: 07/19/22 Last physical exam: 12/21/21 Next scheduled appointment: none Last date of refill on this medication 05/25/22 1 month 1 refill [facility] 08-10-2022 Miscellaneous Notes Prescription Request: Last medication check: 07/19/22 Last physical exam: 12/21/21 Next scheduled appointment: none Last date of refill on this medication 05/25/22 1 month 1 refill documented in this encounter [facility] 07-26-2022 Telephone encounter Note Reviewed chart. Refill appropriate. RX sent. [facility] 07-26-2022 Miscellaneous Notes Reviewed chart. Refill appropriate. RX sent. Prescription Request: Last medication check: 01/30/22 Last physical exam: 12/21/21 Next scheduled appointment: none CSA on file (date): 12/21/21 Last urine drug screen: na Last date of refill on this medication 06/28/22 documented in this encounter [facility] 07-26-2022 Telephone encounter Note Prescription Request: Last medication check: 01/30/22 Last physical exam: 12/21/21 Next scheduled appointment: none CSA on file (date): 12/21/21 Last urine drug screen: na Last date of refill on this medication 06/28/22 [facility] 07-19-2022 Note Well controlled. Con tinue ativan 1 mg daily as needed for anxiety. oarrs reviewed and consistent with treatment plan. [facility] 06-28-2022 Telephone encounter Note Reviewed chart. Refill appropriate. RX sent. [facility] 06-28-2022 Miscellaneous Notes Reviewed chart. Refill appropriate. RX sent. Prescription Request: Last medication check: 01/30/22 Last physical exam: 12/21/21 Next scheduled appointment: na CSA on file (date): 12/21/22 Last urine drug screen: na Last date of refill on this medication 05/25/22 documented in this encounter [facility] 06-27-2022 Telephone encounter Note Prescription Request: Last medication check: 01/30/22 Last physical exam: 12/21/21 Next scheduled appointment: na CSA on file (date): 12/21/22 Last urine drug screen: na Last date of refill on this medication 05/25/22 [facility] 06-26-2022 Note General Surgery Hist ory and Physical Hank Mcdonnell MD Patient ID: Christa Quinteros [id number] 76 y.o. 1945 CHIEF COMPLAINT: Chief Complaint Patient presents with New Patient [employer]ODUCTION [employer] cellulitis of chest wall referred by Dr. Burris (former Dr. Mann patient) HPI: Christa Quinteros is a 76 y.o. female who presents with concern for cellulitis at chest wall site near port site. She reports 2-3 weeks ago noted worsening redness and pain at chest wall at port site. Saw PCP who placed patient on Keflex and noted improvement. She denies fever/chills, no N/V. She reports no prior infection at this site. She has noted worsening pain when port has been accessed. She does not currently use the port outside of the required flushing. She reports initially was placed in 1988 due to her hx of scleroderma and difficulty with IV access. Past Medical History: Diagnosis Date Acid reflux Allergic rhinitis, cause unspecified Arthritis Calculus of kidney Chest pain 04/16/2019 Chronic respiratory failure with hypoxia (CMS/HCC) ([facility]) 03/17/2020 COVID-19 virus infection 03/17/2020 Cystitis, unspecified Diarrhea Dysthymic disorder History of blood transfusion Lesion of soft tissue MULTIPLE AREAS ; SCHEDULED FOR THE EXCISION ON 12/02/2017 Mastodynia Neuropathy Other malaise and fatigue Pain in limb left hip Personal history of fall Scleroderma (CMS/HCC) (HCC) Sprain of ankle, unspecified site Sprain of neck Systemic sclerosis (CMS/HCC) (HCC) Unspecified essential hypertension Unspecified hypothyroidism Urge incontinence Past Surgical History: Procedure Laterality Date APPENDECTOMY BLADDER SUSPENSION CARDIAC PROCEDURE 03/2019 nonobstructive disease CATARACT EXTRACTION Left 09/27/2020 CATARACT EXTRACTION Right 09/15/2020 CHOLECYSTECTOMY COLONOSCOPY 2012 EXTREMITY SURGERY Bilateral calcium deposits removed inner thighs HAND SURGERY LONG LONG TIME AGO HYSTERECTOMY TUNNELED VENOUS CATHETER PLACEMENT Medications Prior to Visit: Prior to Admission medications Medication Sig Start Date End Date Taking? Authorizing Provider ascorbic acid (Vitamin C) 500 MG ER capsule Take 500 mg by mouth daily. Yes Historical Provider, aspirin 81 MG chewable tablet Chew 1 tablet every morning. 09/28/21 Yes Historical Provider, baclofen (Lioresal) 10 MG tablet TAKE ONE AND ONE-HALF TABLET BY MOUTH THREE TIMES DAILY NEEDED FOR MUSCLE SPASM 05/25/22 Yes Chrissy Bridenthal, CELLOPHANE BATH MIXER - PROPERTY INSURANCE CLAIMS EXAMINER [id number]-yqfehvjdkfpyg-dmpvnsn e 50-325-40 MG tablet Take 1 tablet by mouth every 4 hours as needed. Yes Historical Provider, cholecalciferol (Vitamin D-3) 25 MCG (1000 UT) capsule Take by mouth. Yes Historical Provider, enalapril (Vasotec) 10 MG tablet Take 1 tablet (10 mg) by mouth daily. 04/25/22 Yes Erik Gannon MD fluorometholone (FML) 0.1 % ophthalmic suspension Administer 1 drop into both eyes in the morning and 1 drop before bedtime. 11/29/17 Yes Historical Provider, gabapentin (Neurontin) 100 MG capsule Take 1 capsule (100 mg) by mouth 3 times daily. 05/23/22 Yes BECKY Lambert CNP levothyroxine (Synthroid, Levoxyl) 50 MCG tablet Take 1 tablet (50 mcg) by mouth every morning. 04/25/22 Yes Erik Gannon MD LORazepam (Ativan) 1 MG tablet TAKE ONE TABLET BY MOUTH DAILY NEEDED FOR ANXIETY 05/25/22 Yes BECKY Grant CNP metoprolol succinate XL (Toprol-XL) 50 MG 24 hr tablet take 1 tablet by mouth once daily 05/24/22 Yes BECKY Lambert CNP morphine CR (MS Contin) 15 MG 12 hr tablet Take 15 mg by mouth. Yes Historical Provider, morphine CR (MS Contin) 60 MG 12 hr tablet Take 60 mg by mouth in the morning and 60 mg in the evening. Yes Historical Provider, multivitamin with minerals (Cerovite) 18-400 mg-mcg tablet tablet Take by mouth. Yes Historical Provider, nitroglycerin (Nitrostat) 0.4 MG SL tablet up to max of 3 total doses. If no relief after 1 dose, call 911. 04/18/19 Yes Historical Provider, omeprazole OTC (PriLOSEC OTC) 20 MG EC tablet Take 1 tablet by mouth every morning. 09/28/21 Yes Historical Provider, pravastatin (Pravachol) 20 MG tablet take 1 tablet by mouth once daily 05/24/22 Yes BECKY Lambert CNP sertraline (Zoloft) 50 MG tablet TAKE ONE AND ONE-HALF TABLET BY MOUTH EVERYDAY 05/25/22 Yes Chrissy Bridenthal, CELLOPHANE BATH MIXER - PROPERTY INSURANCE CLAIMS EXAMINER Sucralfate (CARAFATE PO) Take by mouth. Yes Historical Provider, cephalexin (Keflex) 500 MG capsule Take 1 capsule (500 mg) by mouth 2 times daily for 7 days. 06/12/22 06/19/22 Bettye Burris PA-C Allergies: Azithromycin, Metoclopramide, Naproxen, Sulfa antibiotics, Sulfamethoxazole-trimethoprim, and Amoxicillin-pot clavulanate Social History Socioeconomic History Marital status: Tobacco Use Smoking status: Never Smokeless tobacco: Never Vaping Use Vaping Use: Never used Substance and Sexual Activity Alcohol use: No Alcohol/week: 0.0 standard dri (more content not included)... [facility] 06-26-2022 History of Presen t illness Narrative Images from the original note were not included. General Surgery History and Physical Hank Mcdonnell MD Patient ID: Christa Quinteros [id number] 76 y.o. 1945 CHIEF COMPLAINT: Chief Complaint Patient presents with New Patient [employer] cellulitis of chest wall referred by Dr. Burris (former Dr. Mann patient) HPI: Christa Quinteros is a 76 y.o. female who presents with concern for cellulitis at chest wall site near port site. She reports 2-3 weeks ago noted worsening redness and pain at chest wall at port site. Saw PCP who placed patient on Keflex and noted improvement. She denies fever/chills, no N/V. She reports no prior infection at this site. She has noted worsening pain when port has been accessed. She does not currently use the port outside of the required flushing. She reports initially was placed in 1988 due to her hx of scleroderma and difficulty with IV access. Past Medical History: Diagnosis Date Acid reflux Allergic rhinitis, cause unspecified Arthritis Calculus of kidney Chest pain 04/16/2019 Chronic respiratory failure with hypoxia (CMS/HCC) ([facility]) 03/17/2020 COVID-19 virus infection 03/17/2020 Cystitis, unspecified Diarrhea Dysthymic disorder History of blood transfusion Lesion of soft tissue MULTIPLE AREAS ; SCHEDULED FOR THE EXCISION ON 12/02/2017 Mastodynia Neuropathy Other malaise and fatigue Pain in limb left hip Personal history of fall Scleroderma (CMS/HCC) ([facility]) Sprain of ankle, unspecified site Sprain of neck Systemic sclerosis ([facility]) ([facility]) Unspecified essential hypertension Unspecified hypothyroidism Urge incontinence Past Surgical History: Procedure Laterality Date APPENDECTOMY BLADDER SUSPENSION CARDIAC PROCEDURE 03/2019 nonobstructive disease CATARACT EXTRACTION Left 09/27/2020 CATARACT EXTRACTION Right 09/15/2020 CHOLECYSTECTOMY COLONOSCOPY 2012 EXTREMITY SURGERY Bilateral calcium deposits removed inner thighs HAND SURGERY LONG LONG TIME AGO HYSTERECTOMY TUNNELED VENOUS CATHETER PLACEMENT Medications Prior to Visit: Prior to Admission medications Medication Sig Start Date End Date Taking? Authorizing Provider ascorbic acid (Vitamin C) 500 MG ER capsule Take 500 mg by mouth daily. Yes Historical Provider, aspirin 81 MG chewable tablet Chew 1 tablet every morning. 09/28/21 Yes Historical Provider, baclofen (Lioresal) 10 MG tablet TAKE ONE AND ONE-HALF TABLET BY MOUTH THREE TIMES DAILY NEEDED FOR MUSCLE SPASM 05/25/22 Yes Chrissy BridenthalBECKY CNP vsonzwzrfs-jamfqmpwqqayq-acjkezh e 50-325-40 MG tablet Take 1 tablet by mouth every 4 hours as needed. Yes Historical Provider, cholecalciferol (Vitamin D-3) 25 MCG (1000 UT) capsule Take by mouth. Yes Historical Provider, enalapril (Vasotec) 10 MG tablet Take 1 tablet (10 mg) by mouth daily. 04/25/22 Yes Erik Gannon MD fluorometholone (FML) 0.1 % ophthalmic suspension Administer 1 drop into both eyes in the morning and 1 drop before bedtime. 11/29/17 Yes Historical Provider, gabapentin (Neurontin) 100 MG capsule Take 1 capsule (100 mg) by mouth 3 times daily. 05/23/22 Yes BECKY Lambert CNP levothyroxine (Synthroid, Levoxyl) 50 MCG tablet Take 1 tablet (50 mcg) by mouth every morning. 04/25/22 Yes Erik Gannon MD LORazepam (Ativan) 1 MG tablet TAKE ONE TABLET BY MOUTH DAILY NEEDED FOR ANXIETY 05/25/22 Yes ChrissyBECKY Coello CNP metoprolol succinate XL (Toprol-XL) 50 MG 24 hr tablet take 1 tablet by mouth once daily 05/24/22 Yes BECKY Lambert CNP morphine CR (MS Contin) 15 MG 12 hr tablet Take 15 mg by mouth. Yes Historical Provider, morphine CR (MS Contin) 60 MG 12 hr tablet Take 60 mg by mouth in the morning and 60 mg in the evening. Yes Historical Provider, multivitamin with minerals (Cerovite) 18-400 mg-mcg tablet tablet Take by mouth. Yes Historical Provider, nitroglycerin (Nitrostat) 0.4 MG SL tablet up to max of 3 total doses. If no relief after 1 dose, call 911. 04/18/19 Yes Historical Provider, omeprazole OTC (PriLOSEC OTC) 20 MG EC tablet Take 1 tablet by mouth every morning. 09/28/21 Yes Historical Provider, pravastatin (Pravachol) 20 MG tablet take 1 tablet by mouth once daily 05/24/22 Yes BECKY Lambert CNP sertraline (Zoloft) 50 MG tablet TAKE ONE AND ONE-HALF TABLET BY MOUTH EVERYDAY 05/25/22 Yes BECKY Grant CNP Sucralfate (CARAFATE PO) Take by mouth. Yes Historical Provider, cephalexin (Keflex) 500 MG capsule Take 1 capsule (500 mg) by mouth 2 times daily for 7 days. 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 2 children 3 GC and 4 GGC Family History Problem Relation Name Age of Onset Cancer Father liver Cancer Mother pancreatic Heart disease Father Heart disease Mother Review of Systems: Review of Systems Constitutional: Negative for appetite change, chills, fatigue, fever and unexpected weight change. Respiratory: Negative for cough, shortness of breath and wheezing. Cardiovascular: Negative for chest pain and palpitations. Gastrointestinal: Negative for abdominal pain, constipation, diarrhea, nausea, rectal pain and vomiting. Skin: Negative for rash and wound. Neurological: Negative for seizures and syncope. Hematological: Negative for adenopathy. Does not bruise/bleed easily. Physical Exam: BP 138/70 Pulse 67 Temp 36.4 C (97.5 F) Ht 5' 2 (1.575 m) Wt 132 lb 6.4 oz (60.1 kg) BMI 24.22 kg/m Physical Exam Constitutional: Appearance: Normal appearance. HENT: Head: Normocephalic. Eyes: Pupils: Pupils are equal, round, and reactive to light. Cardiovascular: Rate and Rhythm: Normal rate and regular rhythm. Pulses: Normal pulses. Pulmonary: Effort: Pulmonary effort is normal. No respiratory distress. Breath sounds: Normal breath sounds. No rales. Chest: Abdominal: General: Bowel sounds are normal. Palpations: Abdomen is soft. There is no mass. Tenderness: There is no abdominal tenderness. Musculoskeletal: General: No swelling or tenderness. Cervical back: Normal range of motion. No tenderness. Lymphadenopathy: Cervical: No cervical adenopathy. Skin: General: Skin is warm and dry. Neurological: Mental Status: She is alert and oriented to person, place, and time. Psychiatric: Behavior: Behavior normal. No orders of the defined types were placed in this encounter. Impression/Treatment Plan: Christa Quinteros is a 76 y.o. female with recent hx of cellulitis of chest wall at port site - No current skin changes at this time to suggest infection, complete antibiotic course - Would recommend to keep port at this time as the prot has been present for 34 years and likely is densely scarred into place. Risks of removal likely outweigh the benefits If port was to become infected and/or the patient were to develop bacteremia, would recommend IR to remove port. - Follow up General Surgery PRN - Patient in agreement with plan Patient counseled on risks, benefits, and alternatives of treatment plan at length while in the office today. Patient states an understandingand willingness to proceed with plan. Hank Mcdonnell MD 06/26/2022 2:54 PM RB I spent 30 minutes total on the day of the visit obtaining history, reviewing imaging and laboratory results, performing a physical exam and providing patient education and counseling. documented in this encounter [facility] 06-12-2022 Telephone encounter Note Okay, thank you [facility] 06-12-2022 Miscellaneous Notes Beny, thank you S: pt calling [facility] with [facility] port concerns B: onset 1.5 weeks ago A: states having pain with redness and warm to touch surrounding port in chest area. Pt states this this port has been in since 1988. Has chills, denies fever at this time. Denies difficulty breathing. Terrible headache. Fatigued. Was seen in infusion today and was unable to flush the line and they told her it looks infected. Denies swelling. Denies bleeding/drainage. Dime sized redness around port. Was told to be seen in office tomorrow. R: RN POD scheduled pt for acute visit tomorrow, advised pt to call back if worsening symptoms or fever occurs, pt verbalized understanding. Reason for Disposition [1] Small area of skin redness at IV site (<1 inch or 2.5 cm) AND [2] no fever, swelling Protocols used: IV Site and Other [id number] documented in this encounter [facility] 06-11-2022 Telephone encounter Note S: pt calling [facility] with [facility] port concerns B: onset 1.5 weeks ago A: states having pain with redness and warm to touch surrounding port in chest area. Pt states this this port has been in since 1988. Has chills, denies fever at this time. Denies difficulty breathing. Terrible headache. Fatigued. Was seen in infusion today and was unable to flush the line and they told her it looks infected. Denies swelling. Denies bleeding/drainage. Dime sized redness around port. Was told to be seen in office tomorrow. R: RN POD scheduled pt for acute visit tomorrow, advised pt to call back if worsening symptoms or fever occurs, pt verbalized understanding. Reason for Disposition [1] Small area of skin redness at IV site (<1 inch or 2.5 cm) AND [2] no fever, swelling Protocols used: IV Site and Other [id number] [facility] 05-25-2022 Note Reviewed chart. Refi ll appropriate. Rx sent. Oarrs reviewed consistent with treatment plan. Refills sent. Please schedule patient for med check appt (6 month) [facility] 05-24-2022 Telephone encounter Note Sched 06/06/22 1pm [facility] 05-24-2022 Miscellaneous Notes Sched 06/06/22 1pm Rx sent with no refills. Due for follow up for medication maintenance. Please schedule. Prescription Request: Last medication check: 05/22/21 Last physical exam: 12/21/21 Next scheduled appointment: none CSA on file (date): na Last urine drug screen: na Last date of refill on this medication 11/29/21 90 day 1 refill documented in this encounter [facility] 05-24-2022 Telephone encounter Note Sched 06/06/22 1pm [facility] 05-24-2022 Miscellaneous Notes Sched 06/06/22 1pm Rx sent with no refills. Due for follow up for medication maintenance. Please schedule. Prescription Request: Last medication check: 05/22/21 Last physical exam: 12/21/21 Next scheduled appointment: none CSA on file (date): na Last urine drug screen: na Last date of refill on this medication 12/21/21 90 day 1 refill documented in this encounter [facility] [employer] 05-24-2022 Telephone encounter Note Rx sent with no refills. Due for follow up for medication maintenance. Please schedule. [facility] [employer] [facility] 05-24-2022 Telephone encounter Note Rx sent with no refills. Due for follow up for medication maintenance. Please schedule. [facility] 05-24-2022 Telephone encounter Note Prescription Request: Last medication check: 05/22/21 Last physical exam: 12/21/21 Next scheduled appointment: none CSA on file (date): na Last urine drug screen: na Last date of refill on this medication 12/21/21 90 day 1 refill [facility] [employer] 05-24-2022 Telephone encounter Note Prescription Request: Last medication check: 05/22/21 Last physical exam: 12/21/21 Next scheduled appointment: none CSA on file (date): na Last urine drug screen: na Last date of refill on this medication 11/29/21 90 day 1 refill [facility] [employer] 12-11-2021 History of Presen t illness Narrative Patient here for port flush, no labs ordered. 1530 Ordered treatment completed. Patient discharged without any issues. Patient has a copy of next infusion appointment and verbalizes understanding. All questions answered. documented in this encounter [facility] Work Phone: 11-20-2021 Hospital Discharg e instructions Reji Hester MD - 11/20/2021 3:32 PM EDT Use soap and water and antibiotic ointment to the right elbow into your scalp wound twice a day. You have 1 staple in your scalp that needs to be removed in 8 to 10 days. Either by your primary care physician or return here. The following attachments cannot be sent through Care Everywhere.Lacerations: Marble (Fijian)Cervical Strain (Fijian)Head Injury: Closed: General Info (Fijian)documented in this encounter [facility] Work Phone: 10-16-2021 History of Presen t illness Narrative Patient is here for port flush, no labs ordered 1136 Ordered treatment completed. Patient discharged without any issues. Patient has a copy of next infusion appointment and verbalizes understanding. All questions answered. documented in this encounter [facility] Work Phone: 06-15-2021 History of Presen t illness Narrative Arrival Note Patient is here for port flush . Labs were not ordered. 1450-Ordered treatment completed. Patient discharged without any issues. Patient has a copy of next infusion appointment and verbalizes understanding. All questions answered. documented in this encounter [facility] Work Phone: 04-27-2021 History of Presen t illness Narrative Patient MAR showing read only for normal saline and heparin flushes. Unable to complete orders. Re-released CVAD plan and able to administer medications. Patient is here for port access and flush. Port accessed and flushed; no labs ordered. Patient scheduled for next appointment 06/08/21 at 2:30PM; every 6 weeks. All questions answered. documented in this encounter [facility] Work Phone: 11-16-2020 History of Presen t illness Narrative Arrival Note Infusion Patient is here for port flush Labs were not ordered. Ordered treatment completed. Patient discharged without any issues. Patient has a copy of next infusion appointment and verbalizes understanding. All questions answered. documented in this encounter [facility] Work Phone: 08-18-2020 History of Presen t illness Narrative Patient arrived for port flush only, no labs ordered. 1550 Ordered treatment completed. Patient discharged without any issues. Patient has a copy of next infusion appointment and verbalizes understanding. All questions answered. documented in this encounter [facility] Work Phone: 06-14-2020 History of Presen t illness Narrative Arrival Note Patient is here for port flush . Labs were not ordered 1515-Ordered treatment completed. Patient discharged without any issues. Patient has a copy of next infusion appointment and verbalizes understanding. All questions answered. documented in this encounter [facility] Work Phone: 03-04-2019 History of Presen t illness Narrative Arrival Note Patient is here for port flush . Labs were not ordered. 1210: Ordered treatment completed. Patient discharged without any issues. Patient has a copy of next infusion appointment and verbalizes understanding. All questions answered. documented in this encounter [facility] Work Phone: documented in this encounter [facility] Work Phone: Evaluation note* Diagnosis Chronic nonintractable headache, unspecified headache type Other chronic pain Unspecified visual disturbance Nausea Nausea alone Dizziness and giddiness Visual disturbance Unspecified visual disturbance Dizziness Dizziness and giddiness documented in this encounter [facility] Work Phone: Evaluation note* Diagnosis Abdominal pain, unspecified abdominal location- Primary Urinary tract infection without hematuria, site unspecified Chest pain Chest pain, unspecified documented in this encounter [facility] Work Phone: Evaluation note* Diagnosis Other specified complication of vascular prosthetic devices, implants and grafts, initial encounter (HCC)- Primary Poor venous access Other specified circulatory system disorders documented in this encounter [facility] Work Phone: Evaluation note* Diagnosis Other specified complication of vascular prosthetic devices, implants and grafts, initial encounter (HCC)- Primary Poor venous access Other specified circulatory system disorders documented in this encounter [facility] Work Phone: Evaluation note* Diagnosis Other specified complication of vascular prosthetic devices, implants and grafts, initial encounter (HCC)- Primary Poor venous access Other specified circulatory system disorders documented in this encounter [facility] Work Phone: Evaluation note* Diagnosis Other specified complication of vascular prosthetic devices, implants and grafts, initial encounter ([facility])- Primary Poor venous access Other specified circulatory system disorders documented in this encounter [facility] Work Phone: Evaluation note* Diagnosis Other specified complication of vascular prosthetic devices, implants and grafts, initial encounter (HCC)- Primary Poor venous access Other specified circulatory system disorders documented in this encounter [facility] Work Phone: Evaluation note* Diagnosis Other specified complication of vascular prosthetic devices, implants and grafts, initial encounter ([facility])- Primary Poor venous access Other specified circulatory system disorders documented in this encounter [facility] Work Phone: Evaluation note* Diagnosis Other specified complication of vascular prosthetic devices, implants and grafts, initial encounter ([facility])- Primary Poor venous access Other specified circulatory system disorders documented in this encounter [facility] Work Phone: Evaluation note* Diagnosis Injury of head, initial encounter- Primary Acute strain of neck muscle, initial encounter Skin tear of right elbow without complication, initial encounter documented in this encounter [facility] Work Phone: Evaluation note* Diagnosis Other specified complication of vascular prosthetic devices, implants and grafts, initial encounter ([facility])- Primary Poor venous access Other specified circulatory system disorders documented in this encounter [facility] Work Phone: Evaluation note* Diagnosis Hypertension, essential Unspecified essential hypertension [facility]* Diagnosis Cellulitis of chest wall Cellulitis and abscess of trunk [facility]* Diagnosis Neck sprain, subsequent encounter Anxiety Anxiety state, unspecified documented [facility] this encounter [facility]* Diagnosis Neck sprain, subsequent encounter documented in this encounter [facility]* Diagnosis Anxiety Anxiety state, unspecified [facility]* Diagnosis Neuropathy Mononeuritis of unspecified site documented [facility]* Diagnosis Neck sprain, subsequent encounter [facility]* Diagnosis Acute cystitis without hematuria- Primary Abdominal pain, generalized [facility]* Diagnosis Neck sprain, subsequent encounter documented in this encounter [facility]* Diagnosis Hypertension, essential Unspecified essential hypertension Anxiety Anxiety state, unspecified documented [facility] this [facility]* Diagnosis Other specified complication of vascular prosthetic devices, implants and grafts, initial encounter ([facility]) Poor venous access documented [facility] encounter [facility]* Diagnosis Acute cystitis without hematuria- Primary [facility]* Diagnosis Urinary tract infection symptoms- Primary Vaginal irritation Pruritus of genital organs Scleroderma (CMS/HCC) (HCC) Systemic sclerosis Pulmonary hypertension (HCC) Other chronic pulmonary heart diseases documented in this encounter [facility]* Diagnosis Neuropathy Mononeuritis of unspecified site documented [facility]* Diagnosis Recurrent UTI- Primary Urinary tract infection, site not specified Dysuria documented in this encounter [facility]* Diagnosis Anxiety Anxiety state, unspecified documented in this encounter [facility]* Diagnosis Other specified complication of vascular prosthetic devices, implants and grafts, initial encounter ([facility]) Poor venous access [facility]* Diagnosis Urinary tract infection symptoms- Primary Recurrent UTI Urinary tract infection, site not specified Urinary frequency Urgency of urination Leukocytes in urine Other nonspecific finding on examination of urine Scleroderma (CMS/HCC) (HCC) Systemic sclerosis Hypothyroidism, unspecified type CAD in [place] artery Hyperlipidemia, unspecified hyperlipidemia type Anxiety Anxiety state, unspecified Shortness of breath Need for hepatitis C screening test Special screening examination for other specified viral diseases Screening for diabetes mellitus documented in this encounter [facility]* Diagnosis Anxiety Anxiety state, unspecified documented [facility]* Diagnosis Scleroderma (CMS/HCC) (HCC)- Primary Systemic sclerosis Neuropathy Mononeuritis of unspecified site Mixed hyperlipidemia CAD in [place] artery Anxiety Anxiety state, unspecified documented [facility]* Diagnosis Other specified complication of vascular prosthetic devices, implants and grafts, initial encounter ([facility]) Poor venous access [facility]* Diagnosis Neuropathy Mononeuritis of unspecified site documented in this encounter [facility]* Diagnosis Medicare annual wellness visit, subsequent- Primary Chronic tension-type headache, not intractable Chronic tension type headache Neck pain Cervicalgia Neuropathy Mononeuritis of unspecified site Lung nodule Other diseases of lung, not elsewhere classified CAD in [place] artery Mixed hyperlipidemia Pulmonary hypertension (HCC) Other chronic pulmonary heart diseases Gastroesophageal reflux disease, unspecified whether esophagitis present Hypothyroidism, unspecified type Dysthymic disorder Anxiety Anxiety state, unspecified Scleroderma (CMS/HCC) (HCC) Systemic sclerosis Elevated fasting glucose Impaired fasting glucose Bilateral hearing loss, unspecified hearing loss type Screening mammogram for breast cancer documented in this encounter [facility] Discharge instructions* Attachments The following attachments cannot be sent through Care Everywhere. * Abdominal Pain (Fijian) [facility]* Attachments The following attachments cannot be sent through Care Everywhere. * Preventing Falls in Older Adults (Fijian) documented in this [facility] for referral (narrative)* Consultation (Routine) - Pending Review Specialty Diagnoses / Procedures Referred By Contac t Referred To Contact Otolaryngology Diagnoses Bilateral hearing loss, unspecified hearing loss type Procedures AK OFFICE/OUTPATIENT NEW HIGH MDM 60 MINUTES Gifty Clark APRN - CNP [address] [place] [address] Gael Duncan, DO [address] [place] [address] Referral ID Status Reason Start Date Expiration Date Visits Requested Visits Authorized [id number] Pending Review Specialty Services Required 02/27/2023 02/27/2024 1 1 * Imaging (Routine) - Pending Review Specialty Diagnoses / Procedures Referred By Contac t Referred To Contact Radiology Diagnoses Lung nodule Procedures CT lung screening follow up low dose Gifty Clark APRN - CNP [address] [place] [address] Referral ID Status Reason Start Date Expiration Date V isits Requested Visits Authorized [id number] Pending Review 02/27/2023 02/27/2024 1 1 [facility] for visit Narrative* Treatment Plan (Routine) Status Reason Specialty Diagnoses / Procedures Re ferred By Contact Referred To Contact Authorized Diagnoses Poor venous access Other specified complication of vascular prosthetic devices, implants and grafts, initial encounter ([facility]) Erik Gannon MD [address] [place] [address] [facility] [address] [place] [address] [facility] Work Phone: Reason for visit Narrative* Treatment Plan and Therapy Plan (Routine) - Authorized Specialty Diagnoses / Procedures Referred By Contac t Referred To Contact Diagnoses Poor venous access Other specified complication of vascular prosthetic devices, implants and grafts, initial encounter (HCC) Erik Gannon MD [address] [place] [address] [facility] [address] [place] [id number] Referral ID Status Reason Start Date Expiration Date V isits Requested Visits Authorized [id number] Authorized 12/30/2018 12/30/2019 1 1 [facility] Work Phone: reason for visit Narrative* Treatment Plan and Therapy Plan (Routine) - Pending Review Specialty Diagnoses / Procedures Referred By Contac t Referred To Contact Diagnoses Poor venous access Other specified complication of vascular prosthetic devices, implants and grafts, initial encounter (HCC) Erik Gannon MD [address] [place] [id number] [facility] [address] [place] [id number] Referral ID Status Reason Start Date Expiration Date V isits Requested Visits Authorized [id number] Pending Review 12/30/2018 12/30/2019 1 1 [employer] 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 Latest Code Status on File Code Status Date Activated Date Inactivated Comments Full Code 12/03/2018 3:49 PM Full Code 12/03/2018 7:27 AM 12/03/2018 3:30 PM Full Code 12/02/2017 12:22 PM 12/03/2017 6:44 PM Full Code 12/02/2017 6:25 AM 12/02/2017 12:01 PM Full Code 02/09/2017 3:45 AM 02/10/2017 5:24 PM Latest Code Status on File Code Status Date Activated Date Inactivated Comments Full Code 04/20/2019 6:13 AM Full Code 04/17/2019 9:32 AM 04/20/2019 6:13 AM DNR-CCA 04/16/2019 7:21 PM 04/17/2019 9:32 AM Full Code 12/03/2018 3:49 PM 12/04/2018 7:26 PM Latest Code Status on File Code Status Date Activated Date Inactivated Comments Full Code 04/20/2019 6:13 AM 04/21/2019 6:34 PM Latest Code Status on File Code Status Date Activated Date Inactivated Comments Full Code 08/02/2019 5:29 AM Full Code 04/20/2019 6:13 AM 04/21/2019 6:34 PM Documents on File Type Date Recorded 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 Expl 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 Advance Directives and Living Will Power of Needle Punch Machine Operator Helper Latest Code Status on File Code Status Date Activated Date Inactivated Comments Full Code 08/02/2019 5:29 AM 08/04/2019 6:58 PM Full Code 04/20/2019 6:13 AM 04/21/2019 6:34 PM Full Code 04/17/2019 9:32 AM 04/20/2019 6:13 AM DNR-CCA 04/16/2019 7:21 PM 04/17/2019 9:32 AM Full Code 12/03/2018 3:49 PM 12/04/2018 7:26 PM Latest Code Status on File Code Status Date Activated Date Inactivated Comments Full Code 08/02/2019 5:29 AM 08/04/2019 6:58 PM Documents on File Type Date Recorded 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 Assembler Expl anation ACP-Advance Directive ACP-Power of Needle Punch Machine Operator Helper Documents on File Type Date Recorded 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 Assembler Expl anation ACP-Advance Directive ACP-Power of Needle Punch Machine Operator Helper Latest Code Status on File Code Status Date Activated Date Inactivated Comments Full Code 12/03/2018 3:49 PM 12/04/2018 7:26 PM Hospital Course * Chad Carlos, CELLOPHANE BATH MIXER - PROPERTY INSURANCE CLAIMS EXAMINER - 12/04/2018 8:43 AM EDT Patient ID: Christa Quinteros Patient's PCP: Erik Gannon MD Admit Date: 12/03/2018 Discharge Date: 12/04/18 Admitting Physician: Ghanshyam Mann MD Discharge Physician: Ghanshyam Mann MD Active Discharge Diagnoses: Primary Problem Soft tissue mass Hospital Problems Active Hospital Problems Diagnosis Date Noted Soft tissue mass [M79.89] 11/01/2017 The patient was seen and examined on day of discharge and this discharge summary is in conjunction with any daily progress note from day of discharge. Code Status: Full Code Hospital Course: This is a 73 y/o F that presents to the hospital for planned surgical procedure. On 12/03/18 Dr. Ghanshyam Mann performed excision of soft tissue masses, bilateral thighs (4). Patient tolerated the procedure well. Patient sent to floor for continued post operative care. IMS consulted for medical mgmt. Diet advanced and tolerated. Pain controlled with PO pain medication. Patient to follow up in office in 1 week for drain removal with Dr. Mann. Patient discharged in stable condition. Consult(s): IP CONSULT TO PRIMARY CARE PROVIDER Procedure(s): IP CONSULT TO PRIMARY CARE PROVIDER Disposition: Home Discharged Condition: Stable Follow Up: Ghanshyam Mann MD [address] [place] [address], [address] [facility] [phone] In 5 days Drain removal Diet: DIET GENERAL; Discharge Medications: Medication List START taking these medications HYDROcodone-acetaminophen 5-325 MG per tablet Commonly known as: NORCO Take 1 tablet by mouth every 6 hours as needed for Pain for up to 3 days. Intended supply: 3 days. Take lowest dose possible to manage pain CONTINUE taking these medications baclofen 10 MG tablet Commonly known as: LIORESAL Take 1 tablet by mouth 3 times daily as needed (Muscle spasm) enalapril 10 MG tablet Commonly known as: VASOTEC Take 1 tablet by mouth 2 times daily fluorometholone 0.1 % ophthalmic suspension Commonly known as: FML gabapentin 100 MG capsule Commonly known as: NEURONTIN Take 1 tablet in the morning and 2 tablets at night heparin flush (1 units/mL) 1 UNIT/ML injection Flush port twice STEPHEN NEEDLE 19GX1 19G X 1 Misc As directed levothyroxine 50 MCG tablet Commonly known as: SYNTHROID Take 1 tablet by mouth Daily loperamide 2 MG capsule Commonly known as: IMODIUM Take 1 capsule by mouth 4 times daily as needed for Diarrhea pantoprazole 40 MG tablet Commonly known as: PROTONIX Take 1 tablet by mouth daily rosuvastatin 10 MG tablet Commonly known as: CRESTOR Take 1 tablet by mouth daily sertraline 50 MG tablet Commonly known as: ZOLOFT Take 1 tablet by mouth daily sodium chloride flush 0.9 % injection Infuse 10 mLs intravenously every 30 days Vitamin C 500 MG Caps vitamin D 400 units Caps Commonly known as: ERGOCALCIFEROL STOP taking these medications acetaminophen 325 MG tablet Commonly known as: TYLENOL Where to Get Your Medications You can get these medications from any pharmacy Bring a paper prescription for each of these medications HYDROcodone-acetaminophen 5-325 MG per tablet Thank you Dr. Erik Gannon MD for the opportunity to be involved in this patient's care. documented in this encounter* Bernard Hernandez MD - 04/21/2019 2:07 PM EST Hospitalist Discharge Summary Christa Quinteros : 1945 Admit date: 04/16/2019 Discharge date: 04/21/2019 Admitting Physician: Elroy Ward MD Primary Care Physician: Erik Gannon MD Discharge Diagnoses: CP/CAD HTN Dyslipidemia Hospital Course: Improved. Pt was admitted with chest pain. Stress test positive. Cardiology consulted. Pt had heart cath (forresults refer to cardiology note), cards recommended aggressive medical management. Pt is pain freetoday no complaints. Walking around with no issues. Cleared for discharge home by cardiology. She will be discharged in stable condition. DIET CARDIAC; No Caffeine Vitals: BP (!) 105/57 Pulse 70 Temp 97.6 F (36.4 C) (Temporal) Resp 18 Ht 5' 2 (1.575 m) Wt 128 lb 6.4 oz (58.2 kg) SpO2 99% BMI 23.48 kg/m Pulse Ox: SpO2 Av.3 % Min: 95 % Max: 100 % Supplemental O2: O2 Flow Rate (L/min): 2 L/min General appearance: alert and cooperative with exam Lungs: clear to auscultation bilaterally Heart: regular rate and rhythm, S1, S2 normal, no murmur, click, rub or gallop Abdomen: soft, non-tender; bowel sounds normal; no masses, no organomegaly Extremities: extremities normal, atraumatic, no cyanosis or edema Neurologic: No obvious focal neurologic deficits. Recent Labs 04/20/19 0023 04/21/19 1332 WBC 7.6 6.1 HGB 14.3 13.6 PLT 156 147 Recent Labs 04/20/19 0023 04/21/19 1332 NA 138 140 K 5.1 4.1 CL 105 106 CO2 21* 26 BUN 22* 16 CREATININE 0.85 0.51* GLUCOSE 116* 105* No results for input(s): AST, ALT, ALB, BILITOT, ALKPHOS in the last 72 hours. Lab Results Component Value Date TRIG 156 04/17/2019 HDL 25 04/17/2019 CHOL 179 04/17/2019 No results found for: PHART, PO2ART, KOH8OND Recent Labs 04/20/19 0023 INR 1.0 No results for input(s): DDIMER in the last 72 hours. No components found for: HGBA1C Lab Results Component Value Date TSH 3.009 09/17/2018 Urine Culture: Results for orders placed or performed in visit on 11/12/18 Urine Culture Result Value Ref Range Urine Culture, Routine No growth (<1,000 CFU/ml). Significant Diagnostic Studies: Xr Chest Portable Result Date: 04/16/2019 Patient Name: CHRISTA QUINTEROS ---Diagnostic Radiology--- Exam Date/Time 04/16/2019 15:43:00 EST Exam CR Chest Portable Ordering Physician AMARILIS CORNELIUS DANIEL M AccessionNumber [id number] CPT4 Codes 90279 () Reason For Exam Chest pain Report PORTABLE CHEST: INDICATION: Chest pain COMPARISON: 02/09/2017 Obtained at 1535 hours. A single [facility] The heart is borderline in size. The mediastinal silhouette is normal. Chronic interstitial changes are present. There is minimal atelectasis of the left base. There is biapical pleural thickening. Arthritic changes of the spine and shoulders are present. A right- sided Mediport catheter is present. The tip of the catheter overlies the superior vena cava. IMPRESSION: Chronic changes. Minimal left basal atelectasis. Report Dictated on Workstation: [facility] --- Final --- Dictating Physician: DO WILLINGHAM ALFRED Signed Date and Time: 04/16/2019 3:48 pm Signed by: DO WILLINGHAM ALFRED Transcribed Date and Time: 04/16/2019 3:50 Nm Cardiac Stress Test Nuclear Imaging Result Date: 04/18/2019 Nuclear Stress Myocardial Perfusion Study Regadenoson Protocol Gated SPECT Patient: Christa Quinteros Height: (62 in) Weight: (129.8 lb) : 1945 Age: 73 Gender: F Study Date: 04/18/2019 Accession#: Patient Room #: *ORDERING PHYSICIAN: * Elroy Ward *SUPERVISING PHYSICIAN:* Andrey Vallejo *RADIOLOGIST: * Gt Soler MD *NUCLEAR TECH: * Kassandra Salas *READING PHYSICIAN:* Caio Anderson MD Indicati ons: Chest pain. Summary: 1. MPI: Abnormal study. Inducible ischemic changes. 2. Normal vasodilator stress EKG. Radiologist Confirmation: The SPECT perfusion imaging portion of the study was interpreted and reported by Gt Soler MD on 04/18/2019 01:16 PM. History: Chest Pain/ discomfort without exertion. Hypertension treated. Scleroderma. Medications: Enoxaparin (Lovenox). Aspirin. Enalapril (Vasotec). Atorvastatin (Lipitor). Levothyroxine (Synthroid). Allergies: Sulfa,reglan,augmentin,zithromax allergy. Naprosyn allergy. Dyslipidemia. Patient isNPO per policy. No caffeine per policy. Medication list reviewed with patient and no contraindicated medications have been taken. Hemoglobin, potassium and/or troponin x2 are within policy guidelines. Study data: The patient's lungs are clear to auscultation. Heart auscultation by RN revealed a regular rate and rhythm. Pre pain assessment is 0 out of 10. Pre pain location is midsternal. Post pain assessment is 0 out of 10. Patient status: Inpatient. Gated SPECT; rest/stress. One-day Sestamibi. Consent: The procedure was reviewed with the patient and the patient voices understanding. Study completion: The patient tolerated the procedure well. There were no complications. Administered medications: None. Discharge: Discharge instruction given. The patient was transferred to a regular nursing floorvia wheelchair. Procedure data: Initial setup. Thepatient was brought to the laboratory. A baseline ECG was recorded. Surface ECG leads and blood pressure measurements were monitored. IV patent, site benign. Regadenoson stress test. Stress testing was performed, with regadenoson by intravenous bolus at one minute into the protocol, for a total dose of 0.4mgover 10.00 sec, followed by a 5 ml saline flush. Exercise for 4 minutes completed by hand mine supervisor. The infusion was terminated due to end of protocol. A pharmacologic approach was used becausethe patient was physically unable to exercise. Baseline ECG: Normal sinus rhythm. No ST segment changes. Stress protocol: +----- --------+--+ + + +Stage +HR+BP +Symptoms + + +--+ + + +Rest +51+121/70 (87)+No symptoms.+ + +--+ + + +Peak stress +79+123/73 (90)+No symptoms.+ + +--+ + + +Recovery +74+118/75 (89) +No symptoms.+ + +--+ + + +Late recovery+68+148/69 (95)+No symptoms.+ + +--+ + + Stress results: Peak heart rate during stress was 79bpm. (53% of maximal predicted heart rate). The maximal predicted heart rate was 148 bpm.The heart rate response to stress is normal. There is an appropriate response to stress. The rate-pressure product for the peak heart rate and blood pressure was 74804 mm Hg/min. Stress testing did not produce any symptoms suggestive of coronary artery disease. Stress ECG: There was no ischemic ST depression.There are no stress arrhythmias or conduction abnormalities. Isotope administration: + + + + +Stage +Rest +Stress + + + + + +Agent +Tc-99m sestamibi+Tc-99m sestamibi + + + ----+ + +Injected dose +6.7 mCi +21.4 mCi + + + + + +Date +04/18/2019 +04/18/2019 + + + + + +Injection time+07:24 AM +08:17 AM + + + + + +Injection at + +Peak pharmacologic stress+ + + + + +Route +IV +IV + + + + + +Injected by +B NICBRI, HEDDLE MACHINE OPERATOR +B BARONI, HEDDLE MACHINE OPERATOR + + + +------- + Image properties: Imaging information: The study was gated. The patient was imaged in the supine position.The image quality was fair. Rotating projection images reveal breast attenuation. Myocardial perfusion imaging: The TID ratio is 1.15. There is a moderate to large, moderately severe, reversible defect involving the apical anterior, basal and mid inferoseptal, mid inferolateral, apical lateral, and apical septal wall(s). Gated SPECT: The left ventricular end-diastolic volume is 64 ml. The left ventricular end- systolic volume is 23 ml. The calculated left ventricular ejection fraction during stress is 64 %. Electronically signed by Caio Anderson MD 04/18/2019 14:59 Discharge Medications: Christa Quinteros [place] Medication Instructions SOO:[id number] Printed on:04/21/19 4904 Medication Information Ascorbic Acid (VITAMIN C) 500 MG CAPS Take 500 mg by mouth daily aspirin 81 MG chewable tablet Take 1 tablet by mouth daily atorvastatin (LIPITOR) 40 MG tablet Take 1 tablet by mouth nightly baclofen (LIORESAL) 10 MG tablet take 1 tablet by mouth three times a day if needed for muscle spasm enalapril (VASOTEC) 10 MG tablet Take 1 tablet by mouth 2 times daily fluorometholone (FML) 0.1 % ophthalmic suspension instill 1 drop into both eyes twice a day gabapentin (NEURONTIN) 100 MG capsule take 1 capsule by mouth every morning and 2 capsules by mouth at bedtime levothyroxine (SYNTHROID) 50 MCG tablet Take 1 tablet by mouth Daily loperamide (RA ANTI-DIARRHEAL) 2 MG capsule Take 1 capsule by mouth 4 times daily as needed for Diarrhea Needle, Disp, (HAILEE NEEDLE 19GX1 ) 19G X 1 MISC As directed nitroGLYCERIN (NITROSTAT) 0.4 MG SL tablet up to max of 3 total doses. If no relief after 1 dose, call 911. pantoprazole (PROTONIX) 40 MG tablet Take 1 tablet by mouth daily sertraline (ZOLOFT) 50 MG tablet Take 1 tablet by mouth daily sodium chloride flush (SALINE FLUSH ZR) 0.9 % injection Infuse 10 mLs intravenously every 30 days sodium chloride flush 0.9 % injection Infuse 10 mLs intravenously Once every 6 weeks vitamin D (ERGOCALCIFEROL) 400 UNITS CAPS Take 400 Units by mouth daily Consults: Cardiology Disposition: Patient discharged in stable condition. Greater than 30 minutes spent discharging the patient and coming up with patient discharge plan. Follow up with Erik Gannon MD in 1-2 weeks. Signed: Bernard Hernandez MD 04/21/2019, 2:07 PM documented in this encounter* Paulina Kumar PA-C - 08/04/2019 3:25 PM EDT Hospitalist Discharge Summary Christa Quinteros : 1945 Admit date: 08/01/2019 Discharge date: 08/04/2019 Admitting Physician: Willian Liu MD Primary Care Physician: Erik Gannon MD Visit Status: Admission Code Status: Full Code Discharge Diagnoses: 1. Chest pain with known CAD 2. L shoulder pain 3. Lung fibrosis with new 3cm lesion in base of L upper lobe 4. Fevers, recent UTI 5. Scleroderma 6. HTN/HLD 7. GERD Diagnosis Date Acid reflux Allergic rhinitis, cause unspecified Arthritis Calculus of kidney Chest pain 04/16/2019 Cystitis, unspecified Diarrhea Dysthymic disorder History of blood transfusion Lesion of soft tissue MULTIPLE AREAS ; SCHEDULED FOR THE EXCISION ON 12/02/2017 Mastodynia Neuropathy Other malaise and fatigue Pain in limb left hip Personal history of fall Scleroderma (HCC) Sprain of ankle, unspecified site Sprain of neck Systemic sclerosis (HCC) Unspecified essential hypertension Unspecified hypothyroidism Urge incontinence Procedures: None Hospital Course: The pt was admitted to [facility] on 07/31 for chest pain and shoulder pain. With her history of CAD and presentation there was concern for ACS. She, however, had negative troponins and Cardiology saw her and doubted it was cardiac. Pulm was also consulted for an incidental lung nodule finding on imaging. Per Pulm it was either infectious due to aspiration or a true nodule/mass. She was placed on empiric abx. Xray of her L shoulder was obtained due to her increasing pain, and was negative for acute process. Most likely just muscular in nature. She had seen MANAGER OF ORGANIZATIONAL DEVELOPMENT in the past, but they were consulted again to evaluate severity of aspiration. She underwent cookie swallow and MANAGER OF ORGANIZATIONAL DEVELOPMENT was ableto make recs, which she was already following. They also recommended GI follow up as an outpt. Pulmdid not feel there was a need for bronchoscopy this admission for her nodule, and recommended repeat CT chest in 6 weeks. See medication adjustments below in med rec. The patient is discharged in improved and stable condition. Consults: IP CONSULT TO SOCIAL WORK IP CONSULT TO CARDIOLOGY IP CONSULT TO PULMONOLOGY Discharge Instructions: Diet: DIET GENERAL; No Caffeine Activity: as tolerated Recommended Outpatient Tests: Disposition: Patient discharged in stable condition to Home. Greater than 30 minutes spent discharging the patient and coming up with patient discharge plan. Vitals: BP 124/73 Pulse 58 Temp 100.2 F (37.9 C) (Temporal) Resp 16 Ht 5' 2 (1.575 m) Wt137 lb 3.2 oz (62.2 kg) SpO2 98% BMI 25.09 kg/m Pulse Ox: SpO2 Av % Min: 97 % Max: 100 % Supplemental O2: General appearance: No apparent distress, appears stated age and cooperative with exam. HEENT: Normal cephalic, atraumatic without obvious deformity. Extra ocular muscles intact. Conjunctivae/corneas clear. Neck: Supple, with full range of motion. No jugular venous distention. Trachea midline. Respiratory: Normal respiratory effort. Otherwise clear to auscultation, bilaterally without Rales/Wheezes/Rhonchi. Cardiovascular: Regular rate and rhythm with normal S1/S2 without murmurs, rubs or gallops. Abdomen: Soft, non-tender, non-distended with normal bowel sounds. No rebound or guarding. Musculoskeletal: No edema bilaterally. Bilateral sclerodactyly noted. Tenderness over L shoulder, heating pad in place. ROM improved, but still limited due to pain in L shoulder. Skin: Skin color, texture, turgor normal. No rashes or lesions. Neurologic: Neurovascularly intact without any focal sensory/motor deficits. Cranial nerves: II-XIIintact, grossly non-focal. Discharge Medications: Christa Quinteros Home Medication Instructions SOO:[id number] Printed on:08/04/19 2407 Medication Information Ascorbic Acid (VITAMIN C) 500 MG CAPS Take 500 mg by mouth daily aspirin 81 MG chewable tablet Take 1 tablet by mouth daily atorvastatin (LIPITOR) 40 MG tablet Take 1 tablet by mouth nightly baclofen (LIORESAL) 10 MG tablet take 1 tablet by mouth three times a day if needed for muscle spasm aqivqaagmp-enhvcubkjblob-lqyjshny (FIORICET, ESGIC) 50-325-40 MG per tablet Take 1-2 tablets by mouth every 6 hours as needed for Headaches enalapril (VASOTEC) 10 MG tablet Take 1 tablet by mouth daily fluorometholone (FML) 0.1 % ophthalmic suspension instill 1 drop into both eyes twice a day gabapentin (NEURONTIN) 100 MG capsule take 1 capsule by mouth every morning and 2 capsules by mouth at bedtime levothyroxine (SYNTHROID) 50 MCG tablet Take 1 tablet by mouth Daily loperamide (RA ANTI-DIARRHEAL) 2 MG capsule Take 1 capsule by mouth 4 times daily as needed for Diarrhea LORazepam (ATIVAN) 1 MG tablet take 1 tablet by mouth every 8 hours if needed for anxiety for up to 10 days Needle, Disp, (STEPHEN NEEDLE 19GX1 ) 19G X 1 MISC As directed nitroGLYCERIN (NITROSTAT) 0.4 MG SL tablet up to max of 3 total doses. If no relief after 1 dose, call 911. pantoprazole (PROTONIX) 40 MG tablet Take 1 tablet by mouth daily sertraline (ZOLOFT) 50 MG tablet Take 1 tablet by mouth daily sodium chloride flush (SALINE FLUSH ZR) 0.9 % injection Infuse 10 mLs intravenously every 30 days sodium chloride flush 0.9 % injection Infuse 10 mLs intravenously Once every 6 weeks Recommended Follow-up: Sylvia Winn MD [address] [place] [id number] Schedule an appointment as soon as possible for a visit in 2 weeks Please call and schedule follow up appointment with Dr. Winn (Pulmonary). Will need to follow upon CT chest. Tavares Rm DO [address] [place] [address] In 2 weeks Follow up on cookie swallow results Readmission Risk Risk of Unplanned Readmission: 13 Complexity of Follow up: [] Moderate Complexity: follow up within 7-14 calendar days (80507) [x] Severe Complexity: follow up within 7 calendar days (63796) Follow up Testing, Pending results or Referrals at Transitional Care Visit: [x] yes [] no Instructions to MA: Please call patient on day after discharge (must document patient contacted within 2 business days of discharge). Follow up questions for MA: 1. Did you get medications filled and taking them as instructed from discharge? 2. Are you following your discharge instructions from your hospital stay? 3. Please confirm patient is scheduled for a follow up appointment within the above time frame. Signed: Paulina Kumar PA-C Inpatient Medical Services 08/04/2019, 3:25 PM documented in this encounter Discharge Instructions * Discharge Instr - Lab* Joy Jackson LPN - 12/04/2018 12:42 PM EDT Your physician has ordered skilled home care services for you. Your home care will be provided by: [facility] [phone] * Additional Instructions* Carlos Bonilla, CELLOPHANE BATH MIXER - PROPERTY INSURANCE CLAIMS EXAMINER - 12/04/2018 You may resume your usual diet General No heavy lifting or strenuous activity. Resume normal activity in 2 weeks. You may shower/bathe. Cleanse incisions daily with peroxide/Neosporin. Call our office ([phone]) for: -excessive bleeding/swelling of incision -temperature above 100.5 degrees F. -severe, continuous pain not relieved with medication -any inability to urinate May drive in 1 weeks. For any other problems call [phone] or go to the hospital emergency dept. Call for an appointment ([phone]) in 1 weeks. documented in this encounter* Discharge Instr - Lab* Joy Jackson LPN - 04/17/2019 5:17 PM EST Direction Home number ([phone]) for you to call your Ginseng Farmer is: Skyler Simon - her direct number is [phone] Your physician has ordered skilled home care services for you. Your home care will be provided by: [facility] [phone] * Additional Instructions* Cheryl Fuller, CELLOPHANE BATH MIXER - PROPERTY INSURANCE CLAIMS EXAMINER - 04/20/2019 * Attachments The following attachments cannot be sent through Care Everywhere. * CAD (Coronary Artery Disease): General Info (Fijian) * Chest Pain (Fijian) documented in this encounter* Pharmacy* Kalani Restrepo [facility] - 08/03/2019 8:59 AM EDT documented in this encounter* Attachments The following attachments cannot be sent through Care Everywhere. * Cervical Strain (Fijian) * Chest Pain (Fijian) * Headache (Fijian) documented in this encounter* Instructions* Elfego Blake MD - 01/30/2020 Return to Emergency Room immediately if any difficulty breathing return to Emergency Room immediately if unable to care for yourself or if you are worse in any other way. * Attachments The following attachments cannot be sent through Care Everywhere. * Coronavirus Disease (COVID-19): General Info (Fijian) documented in this encounter* Instructions* Elfego Blake MD - 01/30/2020 Return to Emergency Room immediately if any difficulty breathing return to Emergency Room immediately if unable to care for yourself or if you are worse in any other way. * Attachments The following attachments cannot be sent through Care Everywhere. * Coronavirus Disease (COVID-19): General Info (Fijian) documented in this encounter* Instructions* Elfego Blake MD - 01/30/2020 Return to Emergency Room immediately if any difficulty breathing return to Emergency Room immediately if unable to care for yourself or if you are worse in any other way. * Attachments The following attachments cannot be sent through Care Everywhere. * Coronavirus Disease (COVID-19): General Info (Fijian) documented in this encounter History of Present Illness * Carlos Bonilla APRN - PROPERTY INSURANCE CLAIMS EXAMINER - 12/04/2018 8:33 AM EDT Surgery Post Op Progress Note PATIENT NAME: Christa Quinteros TODAY'S DATE: 12/04/2018 SUBJECTIVE: Patient sitting up on side of bed. States incision sites are sore but manageable. Denies N/V. Pain controlled Yes Other Complaints No Flatus/BM/or Ostomy function Yes OBJECTIVE: VITALS: BP (!) 146/70 Pulse 63 Temp 98.2 F (36.8 C) (Temporal) Resp 18 Ht 5' 1 (1.549 m) Wt 129 lb (58.5 kg) SpO2 99% BMI 24.37 kg/m INTAKE/OUTPUT: I/O last 3 completed shifts: In: - Out: 20 [Drains:20] No intake/output data recorded. CONSTITUTIONAL: awake and alert ABDOMEN: soft INCISION: clean, dry, no drainage. Angelica intact. JANIS drain to right thigh minimal bloody drainage.No erythema. Data: CBC: Recent Labs 12/03/18 0755 12/04/18328 WBC 6.4 7.5 HGB 14.4 13.6 HCT 41.8 39.5 PLT 147 162 BMP: Recent Labs 12/03/18 0755 12/04/18328 NA 140 140 K 4.2 4.7 CL 107 106 CO2 24 26 BUN 13 13 CREATININE 0.62 0.74 GLUCOSE 110* 120* Hepatic: Recent Labs 12/03/185 12/04/18328 AST 25 28 ALT 28 24 BILITOT 0.7 0.6 ALKPHOS 80 71 ASSESSMENT AND PLAN: Ms. Quinteros is a 73 y/o F that is s/p excision STM. Hx scleroderma. - General diet - Encourage ambulation - IMS on for medical mgmt - PRN pain/nausea medication - Disposition: Anticipate d/c home today with drain. Dr. Mann to see. BECKY Sexton CNP documented in this encounter* Cheryl Fuller APRN - CNP - 04/21/2019 1:16 PM EST CARDIOLOGY PROGRESS NOTE Chart and interval events reviewed. Reason for Visit follow-up abnormal stress SUBJECTIVE: Christa Quinteros denies CP, SOB, syncope.Has occasional palpitations at night. Tele with no arrhthymias. SCHEDULED MEDICATIONS: vitamin C 500 mg Oral Daily baclofen 10 mg Oral BID enalapril 10 mg Oral BID fluorometholone 1 drop Both Eyes BID gabapentin 100 mg Oral BID levothyroxine 50 mcg Oral Daily pantoprazole 40 mg Oral Daily sertraline 50 mg Oral Daily sodium chloride flush 10 mL Intravenous Q30 Days sodium chloride flush 10 mL Intravenous Q6 Weeks vitamin D3 400 Units Oral Daily sodium chloride flush 10 mL Intravenous 2 times per day atorvastatin 40 mg Oral Nightly aspirin 81 mg Oral Daily enoxaparin 40 mg Subcutaneous Daily Active Problems: Chest pain CAD in [place] artery Resolved Problems: * No resolved hospital problems. * Review of Systems: Review of Systems Constitutional: Negative for chills, diaphoresis and fever. HENT: Negative for congestion. Eyes: Negative for visual disturbance. Respiratory: Negative for chest tightness and shortness of breath. Cardiovascular: Positive for palpitations. Negative for chest pain and leg swelling. Gastrointestinal: Negative for abdominal pain, constipation, diarrhea and nausea. Endocrine: Negative for cold intolerance and heat intolerance. Genitourinary: Negative for dysuria and hematuria. Musculoskeletal: Negative for arthralgias. Skin: Negative for rash. Neurological: Negative for dizziness and syncope. VITAL SIGNS: Vitals: 04/21/19 0510 04/21/19 0513 04/21/19 0816 04/21/19 1156 BP: (!) 116/97 (!) 116/54 (!) 105/57 Pulse: 59 55 70 Resp: 17 18 18 Temp: 97.2 F (36.2 C) 97.4 F (36.3 C) 97.6 F (36.4 C) TempSrc: Temporal Temporal Temporal SpO2: 96% 100% 99% Weight: 128 lb 6.4 oz (58.2 kg) Height: No intake or output data in the 24 hours ending 04/21/19 1317 Patient Vitals for the past 96 hrs (Last 3 readings): Weight 04/21/19 0513 128 lb 6.4 oz (58.2 kg) Physical Exam: Physical Exam Vitals signs reviewed. Constitutional: General: She is not in acute distress. Appearance: She is well-developed. She is not diaphoretic. HENT: Head: Normocephalic. Mouth/Throat: Mouth: Mucous membranes are moist. Pharynx: Oropharynx is clear. Eyes: General: Right eye: No discharge. Left eye: No discharge. Conjunctiva/sclera: Conjunctivae normal. Neck: Vascular: No JVD. Cardiovascular: Rate and Rhythm: Normal rate and regular rhythm. Pulses: Dorsalis pedis pulses are 1+ on the right side and 1+ on the left side. Posterior tibial pulses are 1+ on the right side and 1+ on the left side. Heart sounds: Normal heart sounds. No murmur. Comments: Right groin without ecchymosis, hematoma, thrill or bruit. Pulmonary: Effort: Pulmonary effort is normal. Breath sounds: Normal breath sounds. No wheezing or rales. Abdominal: General: Bowel sounds are normal. Palpations: Abdomen is soft. Musculoskeletal: Right lower leg: No edema. Left lower leg: No edema. Skin: General: Skin is warm. Findings: No erythema or rash. Comments: scleroderma effects noted Neurological: Mental Status: She is alert and oriented to person, place, and time. Psychiatric: Mood and Affect: Mood normal. Data: Scheduled Meds: Reviewed Continuous Infusions: sodium chloride 75 mL/hr at 04/20/19 0637 CBC: Recent Labs 04/20/19 0023 WBC 7.6 HGB 14.3 HCT 41.1 PLT 156 BMP: Recent Labs 04/20/19 0023 NA 138 K 5.1 CL 105 CO2 21* BUN 22* CREATININE 0.85 INR: Recent Labs 04/20/19 0023 INR 1.0 No results for input(s): BNP in the last 72 hours. TSH: Lab Results Component Value Date TSH 3.009 09/17/2018 Cardiac Injury Profile: No results for input(s): CKTOTAL, CKMB, TROPONINI in the last 72 hours. Lipid Profile: Lab Results Component Value Date TRIG 156 04/17/2019 HDL 25 04/17/2019 CHOL 179 04/17/2019 EKG: See Report Telemetry Reviewed: SR LHC: 04/20/2019 1. LAD: Proximal vessel lesion: There is a 30% stenosis. 2. 1st diagonal: Ostial lesion: There is a 50% stenosis. IMPRESSIONS: Mild coronary artery disease as described. RECOMMENDATIONS: 1. Patient management should include medical therapy. 2. Patient management should include aggressive risk factor modification. 3. Add optimal medical therapy of the patient's disease. IMPRESSIONS/RECOMMENDATIONS: Abnormal stress - LHC with nonobstructive disease - continue ASA, statin - no BB as resting HR 60 HLD with LDL 123 (goal < 70) - patient was not taking statin at home - continue atorvastatin - recheck lipids 6-8 weeks as OP Cardiology Discharge/Sign-off Recommendations Cardiology medications to continue: [x] All cardiac medications as ordered currently [] Admission cardiac medications [] Please start the following medications on discharge: [] Please stop the following medications on discharge: Followup testing recommended as an outpatient: [] To be arranged by Inpatient provider/PCP [] Will be arranged by Cardiology Cardiology followup: [] Not needed [] Recommend primary service arrange f/u with patient's outpatient pumpman 1-2 wks. [] Recommended; unable to arrange at this time, will arrange post-discharge [x] Arranged as follows: Vidya Fuller APRN-AMARILIS on 05/05/2019 at 9:45am If there are any questions/concerns, please contact the covering provider. If no answer by [facility], please call the cardiology office to obtain appropriate covering EMPLOYEE BENEFITS INSURANCE AGENT/physician. Electronicallysigned by BECKY Larson CNP on 04/21/2019 at 1:17 PM * Elroy Ward MD - 04/20/2019 2:16 PM EST Patient is seen and examined before the cardiac catheterization, results reviewed. Will continue tofollow with cardiology, cardiac diet has been ordered. * Elroy Ward MD - 04/19/2019 3:38 PM EST Hospitalist Progress Note 04/19/2019 3:39 PM [phone]: Please page me @ [phone] for patient care issues. [phone]: Please page IMS night Hospitalist for any issues. Subjective: Admit Date: 04/16/2019 PCP: Erik Gannon MD No overnight issues. Denies sob, abdominal pain, nausea, vomiting, diarrhea, constipation, fevers, or chills. Has constant chest discomfort but more reproducible. DIET CARDIAC; No Caffeine Diet NPO, After Midnight Patient Vitals for the past 96 hrs (Last 3 readings): Weight 04/17/19 0430 130 lb 3.2 oz (59.1 kg) 04/16/19 1454 126 lb (57.2 kg) Medications: vitamin C 500 mg Oral Daily baclofen 10 mg Oral BID enalapril 10 mg Oral BID fluorometholone 1 drop Both Eyes BID gabapentin 100 mg Oral BID levothyroxine 50 mcg Oral Daily pantoprazole 40 mg Oral Daily sertraline 50 mg Oral Daily sodium chloride flush 10 mL Intravenous Q30 Days sodium chloride flush 10 mL Intravenous Q6 Weeks vitamin D3 400 Units Oral Daily sodium chloride flush 10 mL Intravenous 2 times per day atorvastatin 40 mg Oral Nightly aspirin 81 mg Oral Daily enoxaparin 40 mg Subcutaneous Daily LABS: CBC: Recent Labs 04/17/19 0253 WBC 5.8 RBC 4.21 HGB 12.5 HCT 36.8 MCV 87.3 RDW 13.9 PLT 148 BMP: Recent Labs 04/17/19 0253 04/18/19 0444 NA 140 140 K 4.1 4.0 CL 112* 109* CO2 18* 22 BUN 17 14 CREATININE 0.65 0.61 GLUCOSE 101* 97 CALCIUM 8.5 9.0 ANIONGAP 9 9 LIVER PROFILE:No results for input(s): AST, ALT, BILITOT, ALKPHOS, LABALBU, PROT in the last 72 hours. PT/INR: No results for input(s): PROTIME, INR in the last 72 hours. CARDIAC ENZYMES: Recent Labs 04/16/19194304/17/19 0253 TROPONINI <0.012 <0.012 Procalcitonin: No results found for: PROCAL Objective: Vitals: BP (!) 148/73 Pulse 56 Temp 97.9 F (36.6 C) (Temporal) Resp 16 Ht 5' 2 (1.575 m) Wt 130 lb 3.2 oz (59.1 kg) SpO2 96% BMI 23.81 kg/m Pulse Ox: SpO2 Av.8 % Min: 95 % Max: 99 % Supplemental O2: O2 Flow Rate (L/min): 2 L/min General appearance: No apparent distress, appears stated age and cooperative with exam HEENT: Normal cephalic, atraumatic without obvious deformity. Pupils equal, round, and reactive to light. Extra ocular muscles intact. Conjunctivae/corneas clear. Neck: Supple, with full range of motion. No jugular venous distention. Trachea midline. No lymphadenopathy. Respiratory: Normal respiratory effort. Clear to auscultation, bilaterally without Rales/Wheezes/Rhonchi. Cardiovascular: Regular rate and rhythm with normal S1/S2 without murmurs, rubs or gallops. Abdomen: Soft, non-tender, non-distended with normal bowel sounds. No rebound or guarding. Musculoskeletal: No clubbing, cyanosis or edema bilaterally. Full range of motion without deformity. Skin: Skin color, texture, turgor normal. No rashes or lesions. Neurologic: Neurovascularly intact without any focal sensory/motor deficits. Cranial nerves: II-XIIintact, grossly non-focal. Assessment and Plan: # CP/CAD - pain free now, on telemetry, EKG no acute changes, Troponins negative, on ASA/Statin, stress test abnormal, cath tomorrow, # HTN BP stable, on SCOTT-I # Dyslipidemia - LDL 123, on statin All test and lab results reviewed Consult notes reviewed Am labs, replace lytes prn PT/OT DVT prophylaxis: [x] Lovenox [] Heparin [] SCDs [x] Encourage ambulation [] Already on Anticoagulation Advance Directive: Full Code Discharge planning: TBD ELROY WARD MD, MD Division of Hospitalist Medicine Inpatient Medical Services This report was created using the [employer] Speaking voice- activated system. Despiteprompt dictation and careful editorial review, there may be subtle contextual errors in this report, due to misrecognition of the spoken word. * Caio Anderson MD - 04/19/2019 10:25 AM EST CARDIOLOGY PROGRESS NOTE Chart and interval events reviewed. Reason for Visit followup SUBJECTIVE: Christa Quinteros states she is feeling well without recurrent chest or jaw discomfort. SCHEDULED MEDICATIONS: vitamin C 500 mg Oral Daily baclofen 10 mg Oral BID enalapril 10 mg Oral BID fluorometholone 1 drop Both Eyes BID gabapentin 100 mg Oral BID levothyroxine 50 mcg Oral Daily pantoprazole 40 mg Oral Daily sertraline 50 mg Oral Daily sodium chloride flush 10 mL Intravenous Q30 Days sodium chloride flush 10 mL Intravenous Q6 Weeks vitamin D3 400 Units Oral Daily sodium chloride flush 10 mL Intravenous 2 times per day atorvastatin 40 mg Oral Nightly aspirin 81 mg Oral Daily enoxaparin 40 mg Subcutaneous Daily Active Problems: Chest pain Resolved Problems: * No resolved hospital problems. * Review of Systems: Review of Systems Constitutional: Negative for chills, diaphoresis and fever. HENT: Negative for congestion. Eyes: Negative for visual disturbance. Respiratory: Negative for chest tightness and shortness of breath. Cardiovascular: Negative for chest pain and leg swelling. Gastrointestinal: Negative for abdominal pain, constipation, diarrhea and nausea. Endocrine: Negative for cold intolerance and heat intolerance. Genitourinary: Negative for dysuria and hematuria. Musculoskeletal: Negative for arthralgias. Skin: Negative for rash. Neurological: Negative for dizziness and syncope. VITAL SIGNS: Vitals: 04/18/19 1132 04/18/19 1515 04/18/19 1945 04/19/19 0423 BP: (!) 108/56 128/62 126/66 (!) 126/59 Pulse: 62 56 61 54 Resp: 16 16 20 16 Temp: 98.1 F (36.7 C) 98.1 F (36.7 C) 97.3 F (36.3 C) 96.1 F (35.6 C) TempSrc: Temporal Temporal Temporal Temporal SpO2: 99% 97% 98% 96% Weight: Height: No intake or output data in the 24 hours ending 04/19/19 1025 Patient Vitals for the past 96 hrs (Last 3 readings): Weight 04/17/19 0430 130 lb 3.2 oz (59.1 kg) 04/16/19 1454 126 lb (57.2 kg) Physical Exam: Physical Exam Constitutional: General: She is not in acute distress. Appearance: She is well-developed. She is not diaphoretic. HENT: Head: Normocephalic. Eyes: General: Right eye: No discharge. Left eye: No discharge. Conjunctiva/sclera: Conjunctivae normal. Neck: Vascular: No JVD. Cardiovascular: Rate and Rhythm: Normal rate and regular rhythm. Heart sounds: No murmur. Pulmonary: Breath sounds: No wheezing or rales. Comments: Decreased breath sounds Abdominal: General: Bowel sounds are normal. Palpations: Abdomen is soft. Musculoskeletal: Right lower leg: No edema. Left lower leg: No edema. Skin: General: Skin is warm. Findings: No erythema or rash. Comments: scleroderma effects noted Neurological: Mental Status: She is alert and oriented to person, place, and time. Psychiatric: Mood and Affect: Mood normal. Data: Scheduled Meds: Reviewed Continuous Infusions: CBC: Recent Labs 04/16/19 1534 04/17/19 0253 WBC 6.3 5.8 HGB 14.2 12.5 HCT 40.9 36.8 PLT 195 148 BMP: Recent Labs 04/17/19 0253 04/18/19 0444 NA 140 140 K 4.1 4.0 CL 112* 109* CO2 18* 22 BUN 17 14 CREATININE 0.65 0.61 INR:No results for input(s): INR in the last 72 hours. No results for input(s): BNP in the last 72 hours. TSH: Lab Results Component Value Date TSH 3.009 09/17/2018 Cardiac Injury Profile: Recent Labs 04/16/19 1534 04/16/19 1944 04/17/19 0253 TROPONINI <0.012 <0.012 <0.012 Lipid Profile: Lab Results Component Value Date TRIG 156 04/17/2019 HDL 25 04/17/2019 CHOL 179 04/17/2019 EKG: See Report Telemetry Reviewed: SR NM stress test 04/18/19 Image properties: Imaging information: The study was gated. The patient was imaged in the supine position.The image quality was fair. Rotating projection images reveal breast attenuation. Myocardial perfusion imaging: The TID ratio is 1.15. There is a moderate to large, moderately severe, reversible defect involving the apical anterior, basal and mid inferoseptal, mid inferolateral, apical lateral, and apical septal wall(s). Gated SPECT: The left ventricular end-diastolic volume is 64 ml. The left ventricular end-systolic volume is 23 ml. The calculated left ventricular ejection fraction during stress is 64 %. IMPRESSIONS/RECOMMENDATIONS: 1. Chest and Jaw pain. -stress testing noted significant ischemia: moderate to large, moderately severe, reversible defectinvolving the apical anterior, basal and mid inferoseptal, mid inferolateral, apical lateral, and apical septal wall(s). -will need LHC to further evaluate -NPO order after MN and LHC orders placed 2. HLP -on statin managed by PCP 3. Scleroderma 4. ? Of aflutter on EMS monitor -strip reviewed by Dr Anderson, NOT aflutter. Was SR with artifact Electronicallysigned by Ольга Petit PA-C on 04/19/2019 at 10:25 AM Attending Attestation Statement This patient was seen and personally examined by me on 04/19/19. Labs, imaging studies and electronic medical record reviewed. See [x]progress note []H&P []Consult documented by [x]CHRISTINA which reflects my hpi, pmh, psh, ros, fh, sh as well with my additions, as I discussed with the [x]CHRISTINA. For my exam, assessment and plan see below. PHYSICAL EXAM: General Appearance: []WDWN []Obese []Cachectic [x]Thin []ill Neck: Jvd []Present []Absent Lungs: [x]Clear []Crackles []Wheezes []Rhonchi / Respiratory effort []Labored [x]Non-LaboredHeart: [x]RRR []Irregularly Irregular []murmur present []murmur absent No Peripheral Edema Imp: CP. Abnl stress will proceed w cath / revascularization as indicated Atrial Flutter EMS strips reviewed. Artifact. Not Atrial Flutter. Caio Anderson MD [facility] 04/19/19 12:09 PM * Caio Anderson MD - 04/18/2019 10:03 AM EST CARDIOLOGY PROGRESS NOTE Chart and interval events reviewed. Reason for Visit followup SUBJECTIVE: Christa Quinteros states she had some jaw pain during stress this am, no recurrent chest pain. Otherwise feeling well presently. SCHEDULED MEDICATIONS: vitamin C 500 mg Oral Daily baclofen 10 mg Oral BID enalapril 10 mg Oral BID fluorometholone 1 drop Both Eyes BID gabapentin 100 mg Oral BID levothyroxine 50 mcg Oral Daily pantoprazole 40 mg Oral Daily sertraline 50 mg Oral Daily sodium chloride flush 10 mL Intravenous Q30 Days sodium chloride flush 10 mL Intravenous Q6 Weeks vitamin D3 400 Units Oral Daily sodium chloride flush 10 mL Intravenous 2 times per day atorvastatin 40 mg Oral Nightly aspirin 81 mg Oral Daily enoxaparin 40 mg Subcutaneous Daily Active Problems: Chest pain Resolved Problems: * No resolved hospital problems. * Review of Systems: Review of Systems Constitutional: Negative for chills, diaphoresis and fever. HENT: Negative for congestion. Eyes: Negative for visual disturbance. Respiratory: Negative for chest tightness and shortness of breath. Cardiovascular: Negative for chest pain and leg swelling. Gastrointestinal: Negative for abdominal pain, constipation, diarrhea and nausea. Endocrine: Negative for cold intolerance and heat intolerance. Genitourinary: Negative for dysuria and hematuria. Musculoskeletal: Negative for arthralgias. Skin: Negative for rash. Neurological: Negative for dizziness and syncope. VITAL SIGNS: Vitals: 04/17/19 1958 04/18/19 0013 04/18/19 0400 04/18/19 0921 BP: 134/64 108/76 (!) 122/55 (!) 150/67 Pulse: 58 62 55 Resp: 16 16 16 16 Temp: 97.9 F (36.6 C) 97.4 F (36.3 C) 97.5 F (36.4 C) 98.6 F (37 C) TempSrc: Temporal Temporal Temporal Temporal SpO2: 100% 97% 97% Weight: Height: Intake/Output Summary (Last 24 hours) at 04/18/2019 1003 Last data filed at 04/18/2019 0453 Gross per 24 hour Intake 982.69 ml Output 500 ml Net 482.69 ml Patient Vitals for the past 96 hrs (Last 3 readings): Weight 04/17/19 0430 130 lb 3.2 oz (59.1 kg) 04/16/19 1454 126 lb (57.2 kg) Physical Exam: Physical Exam Constitutional: General: She is not in acute distress. Appearance: She is well-developed. She is not diaphoretic. HENT: Head: Normocephalic. Eyes: General: Right eye: No discharge. Left eye: No discharge. Conjunctiva/sclera: Conjunctivae normal. Neck: Vascular: No JVD. Cardiovascular: Rate and Rhythm: Normal rate and regular rhythm. Heart sounds: No murmur. Pulmonary: Breath sounds: No wheezing or rales. Comments: Decreased breath sounds Abdominal: General: Bowel sounds are normal. Palpations: Abdomen is soft. Musculoskeletal: Right lower leg: No edema. Left lower leg: No edema. Skin: General: Skin is warm. Findings: No erythema or rash. Comments: scleroderma effects noted Neurological: Mental Status: She is alert and oriented to person, place, and time. Psychiatric: Mood and Affect: Mood normal. Data: Scheduled Meds: Reviewed Continuous Infusions: sodium chloride 125 mL/hr at 04/16/19 1540 sodium chloride 75 mL/hr at 04/18/19 0450 CBC: Recent Labs 04/16/19 1534 04/17/19 0253 WBC 6.3 5.8 HGB 14.2 12.5 HCT 40.9 36.8 PLT 195 148 BMP: Recent Labs 04/17/19 0253 04/18/19 0444 NA 140 140 K 4.1 4.0 CL 112* 109* CO2 18* 22 BUN 17 14 CREATININE 0.65 0.61 INR:No results for input(s): INR in the last 72 hours. No results for input(s): BNP in the last 72 hours. TSH: Lab Results Component Value Date TSH 3.009 09/17/2018 Cardiac Injury Profile: Recent Labs 04/16/19 1534 04/16/19 1944 04/17/19 0253 TROPONINI <0.012 <0.012 <0.012 Lipid Profile: Lab Results Component Value Date TRIG 156 04/17/2019 HDL 25 04/17/2019 CHOL 179 04/17/2019 EKG: See Report Telemetry Reviewed: SR NM stress test pending IMPRESSIONS/RECOMMENDATIONS: 1. Chest and Jaw pain. -stress testing is done, but pending result. -did have some jaw pain during stress -if stress is negative, can be discharged from cardiology standpoint. If abnormal, will need to discuss heart cath. 2. HLP -on statin managed by PCP Electronicallysigned by Ольга Petit PA-C on 04/18/2019 at 10:03 AM Attending Attestation Statement This patient was seen and personally examined by me on 04/18/19. Labs, imaging studies and electronic medical record reviewed. See [x]progress note []H&P []Consult documented by [x]CHRISTINA which reflects my hpi, pmh, psh, ros, fh, sh as well with my additions, as I discussed with the [x]CHRISTINA. For my exam, assessment and plan see below. PHYSICAL EXAM: General Appearance: []WDWN []Obese []Cachectic [x]Thin []ill Neck: Jvd []Present [x]Absent Lungs: [x]Clear []Crackles []Wheezes []Rhonchi / Respiratory effort []Labored []Non-LaboredHeart: [x]RRR []Irregularly Irregular []murmur present [x]murmur absent Peripheral Edema IMP: Agree w above. Stress test pending. In addition ED run report describes A Flutter. No ECG available. Have requested Caio Anderson [facility] 04/18/19 10:24 AM Addendum: ECG Rec'd from EMS. NSR w Artifact. NOT Atrial Flutter Caio Anderson MD [facility] 04/19/19 7:40 AM * Elroy Ward MD - 04/17/2019 1:53 PM EST Hospitalist Progress Note 04/17/2019 1:53 PM [phone]: Please page me @ [phone] for patient care issues. [phone]: Please page IMS night Hospitalist for any issues. Subjective: Admit Date: 04/16/2019 PCP: Erik Gannon MD No overnight issues. Eating breakfast. Denies chest pain, sob, abdominal pain, nausea, vomiting, diarrhea, constipation, fevers, or chills. DIET CARDIAC; No Caffeine Diet NPO, After Midnight Diet NPO, After Midnight Diet NPO, After Midnight Patient Vitals for the past 96 hrs (Last 3 readings): Weight 04/17/19 0430 130 lb 3.2 oz (59.1 kg) 04/16/19 1454 126 lb (57.2 kg) Medications: sodium chloride Stopped (04/17/19 1011) sodium chloride 125 mL/hr at 04/16/19 1540 sodium chloride 75 mL/hr at 04/16/19 2120 vitamin C 500 mg Oral Daily baclofen 10 mg Oral BID enalapril 10 mg Oral BID fluorometholone 1 drop Both Eyes BID gabapentin 100 mg Oral BID levothyroxine 50 mcg Oral Daily pantoprazole 40 mg Oral Daily sertraline 50 mg Oral Daily sodium chloride flush 10 mL Intravenous Q30 Days sodium chloride flush 10 mL Intravenous Q6 Weeks vitamin D3 400 Units Oral Daily sodium chloride flush 10 mL Intravenous 2 times per day atorvastatin 40 mg Oral Nightly aspirin 81 mg Oral Daily enoxaparin 40 mg Subcutaneous Daily LABS: CBC: Recent Labs 04/16/19 1534 04/17/19 0253 WBC 6.3 5.8 RBC 4.72 4.21 HGB 14.2 12.5 HCT 40.9 36.8 MCV 86.7 87.3 RDW 13.9 13.9 PLT 195 148 BMP: Recent Labs 04/16/19 1534 04/17/19 0253 NA 140 140 K 4.1 4.1 CL 108* 112* CO2 21* 18* BUN 19 17 CREATININE 0.56 0.65 GLUCOSE 117* 101* CALCIUM 9.8 8.5 ANIONGAP 11 9 LIVER PROFILE: Recent Labs 04/16/19 1534 AST 37 ALT 35 BILITOT 0.6 ALKPHOS 83 LABALBU 4.1 PROT 7.2 PT/INR: No results for input(s): PROTIME, INR in the last 72 hours. CARDIAC ENZYMES: Recent Labs 04/16/19 1534 04/16/19 1944 04/17/19 0253 TROPONINI <0.012 <0.012 <0.012 Procalcitonin: No results found for: PROCAL Objective: Vitals: BP 109/73 Pulse 63 Temp 97.5 F (36.4 C) (Temporal) Resp 18 Ht 5' 2 (1.575 m) Wt 130 lb 3.2 oz (59.1 kg) SpO2 100% BMI 23.81 kg/m Pulse Ox: SpO2 Av.4 % Min: 94 % Max: 100 % Supplemental O2: O2 Flow Rate (L/min): 1 L/min General appearance: No apparent distress, appears stated age and cooperative with exam HEENT: Normal cephalic, atraumatic without obvious deformity. Pupils equal, round, and reactive to light. Extra ocular muscles intact. Conjunctivae/corneas clear. Neck: Supple, with full range of motion. No jugular venous distention. Trachea midline. No lymphadenopathy. Respiratory: Normal respiratory effort. Clear to auscultation, bilaterally without Rales/Wheezes/Rhonchi. Cardiovascular: Regular rate and rhythm with normal S1/S2 without murmurs, rubs or gallops. Abdomen: Soft, non-tender, non-distended with normal bowel sounds. No rebound or guarding. Musculoskeletal: No clubbing, cyanosis or edema bilaterally. Full range of motion without deformity. Skin: Skin color, texture, turgor normal. No rashes or lesions. Neurologic: Neurovascularly intact without any focal sensory/motor deficits. Cranial nerves: II-XIIintact, grossly non-focal. Assessment and Plan: # CP/CAD - pain free now, on telemetry, EKG no acute changes, Troponins negative, on ASA/Statin, stress test tomorrow # HTN BP stable, on SCOTT-I # Dyslipidemia - LDL 123, on statin All test and lab results reviewed Consult notes reviewed Am labs, replace lytes prn PT/OT -DVT prophylaxis: [] Lovenox [] Heparin [] SCDs [x] Encourage ambulation [] Already on Anticoagulation Advance Directive: Full Code Discharge planning: TBD ELROY WARD MD, Division of Hospitalist Medicine Inpatient Medical Services This report was created using the [employer]ix Speaking voice- activated system. Despiteprompt dictation and careful editorial review, there may be subtle contextual errors in this report, due to misrecognition of the spoken word. * Selene Pitts RD, LD - 04/17/2019 12:51 PM EST Pt triggered a +RN nutrition screen due to dislike of pork. RD noted pt's dislike in [employer] meal ordering system. Pt is not an acute nutrition risk at this time. Nutrition rescreen completed. Pt assigned a level one for nutrition care. Will refer to DTR for ongoing nutrition screening. * Liudmila Morris OT - 04/17/2019 11:35 AM EST Occupational Therapy Occupational Therapy Initial Assessment Date: 04/17/2019 Patient Name: Christa Quinteros : 1945 Date of Service: 04/17/2019 Having reviewed the treatment plan and goals for this patient, I certify that the plan of care below is medically necessary and appropriate. Discharge Recommendations: Home with assist PRN OT Equipment Recommendations Equipment Needed: No Assessment Assessment: Pt is a 73 yo who presented to [facility] with chest pain. Pt is currently at baseline fxn, INDEP-MOD INDEP level and has no concerns for homegoing. Pt has no acute OT skilled needs and is at a safe level to return home once medically discharged. Prognosis: Good Decision Making: Low Complexity History: Detailed PMH is listed below. Exam: AM PAC Assistance / Modification: INDEP-MOD INDEP OT Education: OT Role;Plan of Care Barriers to Learning: None No Skilled OT: Independent with functional mobility;Independent with ADL's;At baseline function;Safe to return home;No OT goals identified REQUIRES OT FOLLOW UP: No Activity Tolerance Activity Tolerance: Patient Tolerated treatment well Safety Devices Safety Devices in place: Yes Type of devices: All fall risk precautions in place;Left in bed;Nurse notified;Gait belt;Call lightwithin reach Patient Diagnosis(es): The encounter diagnosis was Chest pain, unspecified type. has a past medical history of Acid reflux, Allergic rhinitis, cause unspecified, Arthritis, Calculus of kidney, Cystitis, unspecified, Diarrhea, Dysthymic disorder, History of blood transfusion, Lesion of soft tissue, Mastodynia, Neuropathy, Other malaise and fatigue, Pain in limb, Personal historyof fall, Scleroderma (HCC), Sprain of ankle, unspecified site, Sprain of neck, Systemic sclerosis (HCC), Unspecified essential hypertension, Unspecified hypothyroidism, and Urge incontinence. has a past surgical history that includes Hysterectomy; Cholecystectomy; Appendectomy; Colonoscopy (2011); bladder suspension; Hand surgery; Leg Surgery (Bilateral); and Tunneled venous catheter placement. Restrictions Restrictions/Precautions Restrictions/Precautions: General Precautions(Tele, 1L O2) Required Braces or Orthoses?: No Subjective General Chart Reviewed: Yes Patient assessed for rehabilitation services?: Yes Family / Caregiver Present: Yes(Family) Subjective Subjective: Pt very pleasant and cooperative, agreeable to OT eval. Patient Currently in Pain: Denies Pain Assessment Pain Assessment: 0-10 Pain Level: 0 Pain Type: Acute pain Pain Location: Chest Pain Descriptors: Tightness Vital Signs Temp: 97.5 F (36.4 C) Temp Source: Temporal Pulse: 63 Heart Rate Source: Monitor Resp: 18 BP: 109/73 BP Location: Left Arm MAP (mmHg): 85 Patient Position: Sitting Level of Consciousness: Alert Patient Currently in Pain: Denies Oxygen Therapy SpO2: 100 % O2 Device: None (Room air) Social/Functional History Social/Functional History Lives With: Alone Type of Home: Apartment(1st floor apt) Home Layout: One level Home Access: Stairs to enter without rails Entrance Stairs - Number of Steps: 2 Bathroom Shower/Tub: Tub/Shower unit Bathroom Toilet: Standard Bathroom Equipment: Shower chair Home Equipment: Cane, 4 wheeled walker(Rollator) ADL Assistance: Independent Homemaking Assistance: Independent Homemaking Responsibilities: Yes Ambulation Assistance: Independent(Without AD) Transfer Assistance: Independent Active Coremaker Floor: Yes Objective Vision: Within Functional Limits Vision Exceptions: Wears glasses at all times Hearing: Within functional limits Orientation Overall Orientation Status: Within Normal Limits Observation/Palpation Posture: Good Observation: Tele/O2 intact, contractures noted to liam hands Balance Sitting Balance: Independent Standing Balance: Independent(Without AD) Functional Mobility Functional - Mobility Device: No device Activity: Other;To/from bathroom(Longer household distance in hallway) Assist Level: Independent Functional Mobility Comments: No unsteadiness or LOB noted, INDEP at household distance. O2 doffed for mobility purposes, able to maintain SPO2 with all tasks. ADL Feeding: Independent Grooming: Independent UE Bathing: Independent LE Bathing: Independent UE Dressing: Independent LE Dressing: Independent Toileting: Independent Coordination Movements Are Fluid And Coordinated: Yes Bed mobility Supine to Sit: Independent Sit to Supine: Independent Scooting: Independent Comment: Denies dizziness with position changes. Transfers Sit to stand: Independent Stand to sit: Independent Transfer Comments: Without AD Cognition Overall Cognitive Status: WNL Sensation Overall Sensation Status: Impaired(pt reports pain/numbness/tingling in bilateral hands and feet) LUE AROM (degrees) LUE AROM : WFL LUE General AROM: Finger ROM limited d/t contractures but pt able to complete functional tasks withMOD INDEP. RUE AROM (degrees) RUE AROM : WFL RUE General AROM: Finger ROM limited d/t contractures but pt able to complete functional tasks withMOD INDEP. LUE Strength Gross LUE Strength: WFL RUE Strength Gross RUE Strength: WFL Plan Plan Plan Comment: POC made in collaboration with pt. Patient's occupational therapy plan of care supervision is transferred to Inpatient Therapy Services Department occupational therapist. AM-PAC Score AM-[facility] Inpatient Daily Activity Raw Score: 24 (04/17/191134) AM-[facility] Inpatient ADL T-Scale Score : 57.54 (04/17/191134) ADL Inpatient CMS 0-100% Score: 0 (04/17/191134) ADL Inpatient CMS G-Code Modifier : CH (04/17/191134) Therapy Time Individual Concurrent Group Co-treatment Time In 1019(Co-eval with PT) Time Out 1036 Minutes 17 Liudmila Morris OT * Malu Landry, PT - 04/17/2019 11:20 AM EST Having reviewed the physical therapy treatment plan and goals for this patient, I certify that the attached plan is medically necessary and appropriate. 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 Pt remains independent and able to ambulate without device. Pt able to ambulate in hallway x 300' and had no balance deficits. No acute skilled PT needs identified at this time.Discharge PT and recommend discharge home independently. Prognosis: Good Decision Making: Low Complexity PT Education: PT Role;Plan of Care;Goals No Skilled PT: Independent with functional mobility REQUIRES PT FOLLOW UP: Yes Activity Tolerance Activity Tolerance: Patient Tolerated treatment well Patient Diagnosis(es): The encounter diagnosis was Chest pain, unspecified type. has a past medical history of Acid reflux, Allergic rhinitis, cause unspecified, Arthritis, Calculus of kidney, Cystitis, unspecified, Diarrhea, Dysthymic disorder, History of blood transfusion, Lesion of soft tissue, Mastodynia, Neuropathy, Other malaise and fatigue, Pain in limb, Personal historyof fall, Scleroderma (HCC), Sprain of ankle, unspecified site, Sprain of neck, Systemic sclerosis (HCC), Unspecified essential hypertension, Unspecified hypothyroidism, and Urge incontinence. has a past surgical history that includes Hysterectomy; Cholecystectomy; Appendectomy; Colonoscopy (2011); bladder suspension; Hand surgery; Leg Surgery (Bilateral); and Tunneled venous catheter placement. Restrictions Restrictions/Precautions Restrictions/Precautions: Up Ad Gi Required Braces or Orthoses?: No Subjective General Chart Reviewed: Yes Patient assessed for rehabilitation services?: Yes Additional Pertinent Hx: Scleroderma Family / Caregiver Present: Yes(family members) Diagnosis: chest pain Follows Commands: Within Functional Limits Subjective Subjective: Pt presents supine in bed and agreeable to PT. Pain Screening Patient Currently in Pain: Yes Pain Assessment Pain Assessment: 0-10 Pain Level: 0 Pain Type: Acute pain Pain Location: Chest Vital Signs Patient Currently in Pain: Yes Orientation Orientation Overall Orientation Status: Within Normal Limits Social/Functional History Social/Functional History Lives With: Alone Type of Home: Apartment(1st floor apt) Home Layout: One level Home Access: Stairs to enter without rails Entrance Stairs - Number of Steps: 2 Bathroom Shower/Tub: Tub/Shower unit Bathroom Toilet: Standard Bathroom Equipment: Shower chair Home Equipment: Cane, 4 wheeled walker(Rollator) ADL Assistance: Independent Homemaking Assistance: Independent Homemaking Responsibilities: Yes Ambulation Assistance: Independent(Without AD) Transfer Assistance: Independent Active Coremaker Floor: Yes Objective AROM RLE (degrees) RLE AROM: WFL AROM LLE (degrees) LLE AROM : WFL Strength RLE Strength RLE: WFL Comment: grossly 4/5 Strength LLE Strength LLE: WFL Comment: grossly 4/5 Sensation Overall Sensation Status: Impaired(pt reports pain/numbness/tingling in bilateral hands and feet) Bed mobility Rolling to Left: Independent Rolling to Right: Independent Supine to Sit: Independent Sit to Supine: Independent Scooting: Independent Transfers Sit to Stand: Independent Stand to sit: Independent Bed to Chair: Independent Ambulation Ambulation?: Yes Ambulation 1 Surface: level tile Device: No Device Assistance: Independent Gait Deviations: None Distance: 300' Comments: Pt with no noted gait deviations or LOB. Balance Sitting - Static: Good;+ Sitting - Dynamic: Good Standing - Static: Good Standing - Dynamic: Good;- Comments: Pt able to transfer independently to [facility] and also perform weight shifting in sitting and own pericare. Plan Plan Times per week: Discharge PT Safety Devices Type of devices: All fall risk precautions in place, Gait belt, Left in bed, Call light within reach Restraints Initially in place: No AM-PAC Score AM-PAC Inpatient Mobility Raw Score : 24 (04/17/191119) AM-PAC Inpatient T-Scale Score : 61.14 (04/17/191119) Mobility Inpatient CMS 0-100% Score: 0 (04/17/191119) Mobility Inpatient CMS G-Code Modifier : CH (04/17/191119) Goals Short term goals Time Frame for Short term goals: Discharge PT Patient Goals Patient goals : To figure out what caused the chest pain and then get home Therapy Time Individual Concurrent Group Co-treatment Time In 1018 Time Out 1036 Minutes 18 Goals and/or treatment plan was established in collaboration with patient/family/other representatives. Plan to be activated only if patient is admitted or for assessing discharge needs. Malu Landry, PT * Yareli Martienz - 04/17/2019 10:42 AM EST inadvertant entry made for this pt on APR for dobutamine and NS. This was not administered. Notified PT 's RN Tess who states understanding * Darlin Vilchis - 04/17/2019 9:35 AM EST Spoke with patient's RN to screen for caffeine...she did have breakfast with caffeine this AM. Alsoinformed the RN that patient could not be a DNR-CCA while having a stress test...that she would need to be a Full Code for the duration of the test. Nurse said she would speak with ordering physician. Patient will need to be NPO after midnight and no caffeine after 1900 if test is to be performed tomorrow morning. * Carmen Joyner RN - 04/16/2019 9:10 PM EST Patient having c/o chest pain. She states that it is completely different pain than when she came in and pain is not radiating anywhere. Stat EKG ordered and performed. Dr. Hein, [facility], notified via [employer] documented in this encounter* Paul Hendrickson RN - 04/29/2019 11:30 AM EST Arrival Note Patient is here for port flush . Labs were not ordered. 1153: Ordered treatment completed. Patient discharged without any issues. Patient has a copy of next infusion appointment and verbalizes understanding. All questions answered. documented in this encounter* Kalani Mccollum RN - 07/30/2019 12:35 PM EDT Ordered treatment completed. Patient discharged without any issues. Patient has a copy of next infusion appointment and verbalizes understanding. All questions answered. * Kalani Mccollum RN - 07/30/2019 12:16 PM EDT Arrival Note Patient is here for port flush . Labs were not ordered. documented in this encounter* Sri Nguyen, BECKY - AMARILIS - 08/04/2019 10:39 AM EDT [facility] Pulmonary Critical Care and Sleep Medicine [address] [place] [id number] Patient - Christa Quinteros, Age - 73 y.o. - 1945 Room Number - [id number] Consulting - Willian Liu MD Primary Care Physician - Erik Gannon MD Date of Admission - 08/01/2019 10:57 PM Hospital Day - 2 Subjective/Events Past 24 hours/ROS Patient awake resting comfortably in bed. Remains stable on room air. Reports still having some endconversational dyspnea however does not appear to be having any shortness of breath while talking on the phone with her daughter. She denies chest pain, cough, abdominal pain, nausea, vomiting, feveror chills. Did have temp of 100.2 early this morning. Nocturnal pulse oximetry study reviewed with patient and daughter on the phone. Went for modified barium swallow test this morning. All other systems reviewed Objective Vitals height is 5' 2 (1.575 m) and weight is 137 lb 3.2 oz (62.2 kg). Her temporal temperature is 100.2 F (37.9 C). Her blood pressure is 124/73 and her pulse is 58. Her respiration is 16 and oxygen saturation is 98%. I/O No intake or output data in the 24 hours ending 08/04/19 1039 Patient Vitals for the past 96 hrs (Last 3 readings): Weight 08/04/19 0427 137 lb 3.2 oz (62.2 kg) 08/03/19 0517 134 lb 4 oz (60.9 kg) 08/02/19 0544 135 lb 11 oz (61.5 kg) Exam General Appearance Awake, alert, oriented, in no acute distress. On room air. HEENT - normocephalic, atraumatic, sclarea is anicteric, conjunctiva is pink, nasal mucosa is normal, no congestion, external ears are intact. Neck - Supple, trachea midline Lymph nodes- no cervical, clavicular, or posterior auricular lymphadenopathy Lungs Normal effort. CTA, no wheezing or crackles noted. Cardiovascular - Heart sounds are normal. Regular rate and rhythm Abdomen - Soft, nontender, nondistended, no masses or organomegaly Neurologic - Awake, alert, follows commands. Cranial nerves II-XII are intact, There are no focal motor deficits grossly Skin - No bruising or bleeding, good turgor, normal warmth. Sclerodactyly to hands bilaterally. Extremities - No clubbing, cyanosis, edema Peripheral pulses- present bilaterally and symmetric Psychiatric: appropriate, oriented to person, place and time/date Meds aspirin 81 mg Oral Daily atorvastatin 40 mg Oral Nightly enalapril 10 mg Oral Daily gabapentin 100 mg Oral BID levothyroxine 50 mcg Oral Daily fluorometholone 1 drop Both Eyes BID pantoprazole 40 mg Oral QAM AC sertraline 50 mg Oral Daily sodium chloride flush 10 mL Intravenous 2 times per day enoxaparin 40 mg Subcutaneous Daily baclofen, loperamide, LORazepam, sodium chloride flush, acetaminophen OR acetaminophen, polyethylene glycol, promethazine OR ondansetron, traMADol, heparin flush Labs CBC Recent Labs 08/03/19 0252 WBC 6.0 HGB 12.2 HCT 35.1 MCV 86.6 PLT 120* BMP: Recent Labs 08/02/19 0039 NA 140 K 4.2 CL 107 CO2 25 BUN 15 CREATININE 0.52 GLUCOSE 113* ABG: No results found for: PH, PCO2, PO2, HCO3, O2SAT No results found for: IFIO2, MODE, SETTIDVOL,SETPEEP LIVER PROFILE Recent Labs 08/02/19 0039 AST 30 ALT 30 BILITOT 0.4 ALKPHOS 100 INR Lab Results Component Value Date INR 1.0 04/20/2019 PROTIME 11.0 04/20/2019 PTT No results found for: APTT Cultures N/a Active Hospital Problem List Active Hospital Problems Diagnosis Date Noted Pulmonary infiltrate [R91.8] Left shoulder pain [M25.512] 08/02/2019 Assessment and Plan Abnormal CT chest, suspect inflammation with concern for possible aspiration - ST evaluation noted (see below). , aspiration precautions. States she has had MBS years ago whichshowed she was aspirating. - ABx were d/c yesterday by IMS based on ID stewardship recommendations. - Daughter and patient had questions as to whether or not patient should have bronchoscopy to have a better look at what is going on in patient's lungs. I explained I do not feel patient is appropriate at this time for bronchoscopy however I will address their concerns with Dr. Winn. Will likelyproceed with f/u CT chest in 6 weeks and reevaluate at that time. - Recommend repeat CT chest in 6 weeks to monitor opacities for progression. Can follow outpatient with Dr. Winn. Scleroderma with dysphagia - ST evaluation appreciated - MBS showed swallow function grossly intact. Small Zenker's diverticulum noted with prominent cricopharyngeus. ST recommending f/u with GI with consideration of esophagram. Can likely be done outpatient. - Continue diet per ST recommendations Dyspnea - Stable on room air. No conversational dyspnea noted this morning - Can consider prn Albuterol inhaler - outpatient pulmonary function testing. LUCIANA per patient- untreated - patient states years ago she was diagnosed with sleep apnea and has CPAP at home with O2. She wasunable to tolerate full facemask so she has not been wearing and she does not wear the O2. She cannot recall what DME company she uses - She complains of excessive daytime sleepiness and fatigue - Nocturnal O2 study done last night on room air. Did not have SpO2 drop less than 88% for > 5 minutes. - follow up outpatient with Dr. Winn. Chest pain with history of CAD/ Left shoulder pain - Cardiology consult noted. Shoulder pain likely non cardiac related per notes. - EKG normal. Troponin negative x 2 - Cardiology recommending medical management. ASA and Statin - Left shoulder Xray negative for acute findings Hx HTN and hyperlipidemia - Enalapril, Atorvastatin GERD - Protonix DVT prophylaxis- Lovenox SQ Code status- Full Code Case discussed with nurse and patient as well as her daughter Marilu on the phone. Questions and concerns addressed. Associated attestation - Sylvia Winn MD - 08/04/2019 1:44 PM EDT I have evaluated the patient and reviewed the case with the PRODUCTION LABORER. I agree with the current plan of care including the workup, evaluation, management, and diagnosis. Care plan has been discussed. I independently examined and evaluated the patient. The documentation below has been reviewed and edited as needed to reflect the findings of my evaluation. * Kymberly Diaz SLP - 08/04/2019 9:31 AM EDT Speech Language Pathology A Modified Barium Swallow (MBS) evaluation was completed. The full Speech Pathology report is located under the Chart Review section of [facility]. Click on the Procedure tab to locate the Speech Pathologist MBS results and recommendations. Recommendations: Continue regular diet. Pt makes independent appropriate food choices. Consider further GI f/u esophagram d/t significant history of effects of scleroderma on esophagus. +small Zenker's diverticulum. Kymberly Diaz M.A. [facility]-MANAGER OF ORGANIZATIONAL DEVELOPMENT * Kenji Lima RCP - 08/04/2019 6:07 AM EDT Nocturnal desaturation study completed and in the front of the patient's chart. * Kymberly Diaz SLP - 08/03/2019 12:02 PM EDT Speech Language Pathology Facility/Department: [facility] TELEMETRY CLINICAL BEDSIDE SWALLOW EVALUATION NAME: Christa Quinteros : 1945 ADMISSION DATE: 08/01/2019 ADMITTING DIAGNOSIS: has Neck pain; Swelling, mass, or lump in head and neck; Dysthymic disorder; Scleroderma (HCC); Dysarthria; Hypertension, essential; Poor venous access; Soft tissue mass; Anxiety; Chronic prescription benzodiazepine use; Hypothyroidism; Vitamin B12 deficiency; Gastroesophageal reflux disease; Neuropathy; Other specified complication of vascular prosthetic devices, implants and grafts, initial encounter (HCC); CAD in [place] artery; and Left shoulder pain on their problem list. ONSET DATE: 08/02/2019 Pt went to ED with left sided neck pain. Recently treated for UTI. Pain in left shoulder. Chest pain. Lung fibrosis with new 3cm lesion in [place]. Recent Chest Xray/CT of Chest: ( Date 08/02/2019 ) IMPRESSION: 1. Ill-defined soft tissue attenuation opacity in the base of the left upper lobe measuring 3 cm corresponds to the radiographic abnormality along with additional nodular opacity in the right lower lobe measuring 0.9 cm. Consideration is given to neoplastic lesions versus infectious processes and short-term follow-up in one to two months is recommended 2. Reticular nodular opacities at the lung bases is a chronic process Date of Eval: 08/03/2019 Evaluating Therapist: Kymberly Diaz Current Diet level: Current Diet : Regular Current Liquid Diet : Thin Primary Complaint Patient Complaint: H/o of aspiration per pt. Current concern for same d/t inflamation in lungs. Pain: No specific complaint during assessment. Reason for Referral Christa Quinteros was referred for a bedside swallow evaluation to assess the efficiency of her swallowfunction, identify signs and symptoms of aspiration and make recommendations regarding safe dietaryconsistencies, effective compensatory strategies, and safe eating environment. Impression Dysphagia Impression : Recommend dental soft textures with elimination of heavy bread items. Limit and choose softer or ground meats (pt does not eat significant amount of meats-limited or chooses veggie alternative. Suggest repeat MBS d/t possible progression of scleroderma. May need esohagram or EGD as well. History in 2012 sliding hiatal hernia. Also was unable to tolerate Reglan d/t dyskinesia. Treatment Plan Requires MANAGER OF ORGANIZATIONAL DEVELOPMENT Intervention: Yes Duration/Frequency of Treatment: 2 visits/unless further educational needs per MBS D/C Recommendations: Home independently Recommended Diet and Intervention Diet Solids Recommendation: Dental Soft(Pt is able to choose from the menu independently) Liquid Consistency Recommendation: Thin Recommended Form of Meds: PO Recommendations: Modified barium swallow study Therapeutic Interventions: Patient/Family education Compensatory Swallowing Strategies Compensatory Swallowing Strategies: Alternate solids and liquids;Upright as possible for all oral intake;Small bites/sips(Reflux precautions, smaller more frequent meals) Treatment/Goals Short-term Goals Timeframe for Short-term Goals: 2 visits Goal 1: Pt will understand swallowing deficits in relationship to food choices, ongoing education of the same. Goal 2: Pt will participate in MBS. General Chart Reviewed: Yes Behavior/Cognition: Alert;Cooperative Respiratory Status: Room air O2 Device: None (Room air) Communication Observation: Functional Follows Directions: Complex Dentition: Adequate(Complains that teeth have shifted to the right) Patient Positioning: Upright in bed Baseline Vocal Quality: Normal Prior Dysphagia History: hypertensive LES, functional during swallow, sliding hiatal hernia. H/O MBS with aspiration at [facility]-report is currently not available. (completed as an inpatient) Consistencies Administered: Reg solid;Dysphagia Soft and Bite-Sized (Dysphagia III);Thin - cup;Thin- straw;Dysphagia Pureed (Dysphagia I) Vision/Hearing Vision Vision: Within Functional Limits Hearing Hearing: Within functional limits Oral Motor Deficits Oral/Motor Oral Motor: Within functional limits(Range of motion and strength is WFL. No asymmetry.) Oral Phase Dysfunction Oral Phase Oral Phase - Comment: Mastication was functional for joaquin cracker. Oral clearing WFL Indicators of Pharyngeal Phase Dysfunction Pharyngeal Phase Pharyngeal: +laryngeal elevation. No reports of deficits during evaluation with joaquin cracker, continuous straw sips thin, applesauce. Per pt report residual somewhere in throat. Prognosis Prognosis Prognosis for safe diet advancement: fair Barriers/Prognosis Comment: scleroderma has effected specifically the esophagus. Individuals consulted Consulted and agree with results and recommendations: Patient Education Patient Education: diet recommendations, esophageal and MBS testing Patient Education Response: Verbalizes understanding Safety Devices in place: Yes Type of devices: Call light within reach Therapy Time MANAGER OF ORGANIZATIONAL DEVELOPMENT Individual Minutes Time In: 1134 Time Out: 1202 Minutes: 28 DORA Cisneros 08/03/2019 1:02 PM * Paulina Kumar PA-C - 08/03/2019 10:55 AM EDT Hospitalist Progress Note 08/03/2019 10:55 AM Subjective: Admit Date: 08/01/2019 PCP: Erik Gannon MD Room#: 251/2512 Interval History: No overnight issues. The pt states she is feeling well, she is having some SOB but mostly just at the end of sentences and with exertion. Denies any more chest pains. States her shoulder is also feeling better, and that it is just an ache more than a stabbing pain, and that it sometimes radiates into her neck. Denies chest pain, abdominal pain, nausea, vomiting, diarrhea, constipation, fevers, or chills. DIET GENERAL; No Caffeine Patient Vitals for the past 96 hrs (Last 3 readings): Weight 08/03/19 0517 134 lb 4 oz (60.9 kg) 08/02/19 0544 135 lb 11 oz (61.5 kg) 08/02/19 0535 136 lb (61.7 kg) 24HR INTAKE/OUTPUT: No intake or output data in the 24 hours ending 08/03/19 1055 Medications: aspirin 81 mg Oral Daily atorvastatin 40 mg Oral Nightly enalapril 10 mg Oral Daily gabapentin 100 mg Oral BID levothyroxine 50 mcg Oral Daily fluorometholone 1 drop Both Eyes BID pantoprazole 40 mg Oral QAM AC sertraline 50 mg Oral Daily sodium chloride flush 10 mL Intravenous 2 times per day enoxaparin 40 mg Subcutaneous Daily LABS: CBC: Recent Labs 08/02/19 0039 08/03/19 0252 WBC 9.1 6.0 RBC 4.49 4.05 HGB 13.4 12.2 HCT 38.8 35.1 MCV 86.6 86.6 RDW 13.1 13.3 PLT 126* 120* BMP: Recent Labs 08/02/19 0039 NA 140 K 4.2 CL 107 CO2 25 BUN 15 CREATININE 0.52 GLUCOSE 113* CALCIUM 9.1 ANIONGAP 8 LIVER PROFILE: Recent Labs 08/02/19 0039 AST 30 ALT 30 BILITOT 0.4 ALKPHOS 100 LABALBU 3.8 PROT 6.8 PT/INR: No results for input(s): PROTIME, INR in the last 72 hours. CARDIAC ENZYMES: Recent Labs 08/02/19 0039 08/02/19 0538 08/02/19 0833 TROPONINI <0.012 <0.012 <0.012 Procalcitonin: No results found for: PROCAL Objective: Vitals: BP 133/63 Pulse 55 Temp 98.3 F (36.8 C) (Temporal) Resp 17 Ht 5' 2 (1.575 m) Wt 134 lb 4 oz (60.9 kg) SpO2 98% BMI 24.55 kg/m Pulse Ox: SpO2 Av.3 % Min: 93 % Max: 98 % Supplemental O2: General appearance: No apparent distress, appears stated age and cooperative with exam HEENT: Normal cephalic, atraumatic without obvious deformity. Extra ocular muscles intact. Conjunctivae/corneas clear. Neck: Supple, with full range of motion. No jugular venous distention. Trachea midline. Respiratory: Somewhat increased respiratory effort with conversation. Otherwise clear to auscultation, bilaterally without Rales/Wheezes/Rhonchi. Cardiovascular: Regular rate and rhythm with normal S1/S2 without murmurs, rubs or gallops. Abdomen: Soft, non-tender, non-distended with normal bowel sounds. No rebound or guarding. Musculoskeletal: No edema bilaterally. Bilateral sclerodactyly noted. Tenderness over L shoulder. Full range of motion limited due to pain in L shoulder. Skin: Skin color, texture, turgor normal. No rashes or lesions. Neurologic: Neurovascularly intact without any focal sensory/motor deficits. Cranial nerves: II-XIIintact, grossly non-focal. Assessment/Plan 1. Chest pain with known CAD: per cardiology pain is reproducible. Pt with heart cath back on 04/20/2019. Cont medical management. 2. L shoulder pain: likely not cardiac in origin. Reproducible as well. L shoulder xray negative for acute process. 3. Lung fibrosis with new 3cm lesion in base of L upper lobe: pulm consulted and following, suspicious for inflammatory changes or possibly aspiration. Pt with history of cookie swallow in the past, MANAGER OF ORGANIZATIONAL DEVELOPMENT felt she did not need further investigation per pt. Abx stewardship recommended DC'ing abx as they believe this is due to the new lesion not PNA. Pt afebrile, no leukocytosis. 4. Fevers, recent UTI 5. Scleroderma 6. HTN/HLD: cont home meds 7. GERD -am labs, replace lytes prn -increase activity -DVT prophylaxis: [x] Lovenox [] Heparin [] SCDs [x] Encourage ambulation [] Already on Anticoagulation Advance Directive: Full Code Discharge planning: TBD Signed: Paulina Kumar PA-C Inpatient Medical Services 08/03/2019, 10:55 AM * Sri Nguyen, BECKY - PROPERTY INSURANCE CLAIMS EXAMINER - 08/03/2019 8:50 AM EDT [facility], Pulmonary Critical Care and Sleep Medicine [address] [place] [id number] Patient - Christa Quinteros, Age - 73 y.o. - 1945 Room Number - 251/2512 Consulting - Willain Liu MD Primary Care Physician - Erik Gannon MD [facility] # - [id number] Date of Admission - 08/01/2019 10:57 PM Hospital Day - 1 Subjective/Events Past 24 hours/ROS Patient awake resting comfortably in bed. States she still is having left shoulder pain. She deniesany chest pain, abdominal pain, cough, nausea, vomiting, or chills. Reports occasional fever however none documented. She occasionally has trouble swallowing certain foods. Has had cookie swallow in the past where she was told she was aspirating but does not appear to have any diet modifications orchanges made. She reports she has been ambulating to bathroom with no difficulty. She is stable on room air. Has occasional shortness of breath and some conversational dyspnea at the end of sentences. She complaints of being fatigued/tired a lot at home. She does not wear her CPAP or O2 for sleep apnea. All other systems reviewed Objective Vitals height is 5' 2 (1.575 m) and weight is 134 lb 4 oz (60.9 kg). Her temporal temperature is 98.3 F (36.8 C). Her blood pressure is 133/63 and her pulse is 55. Her respiration is 17 and oxygen saturation is 98%. I/O Intake/Output Summary (Last 24 hours) at 08/03/2019 0850 Last data filed at 08/02/2019 1046 Gross per 24 hour Intake 300 ml Output Net 300 ml Patient Vitals for the past 96 hrs (Last 3 readings): Weight 08/03/19 0517 134 lb 4 oz (60.9 kg) 08/02/19 0544 135 lb 11 oz (61.5 kg) 08/02/19 0535 136 lb (61.7 kg) Exam General Appearance Awake, alert, oriented, in no acute distress. Stable on room air. HEENT - normocephalic, atraumatic, sclarea is anicteric, conjunctiva is pink, nasal mucosa is normal, no congestion, external ears are intact. Neck - Supple, trachea midline Lymph nodes- no cervical, clavicular, or posterior auricular lymphadenopathy Lungs Normal effort, no wheezing or crackles, diminished in the bases bilaterally. Cardiovascular - Heart sounds are normal. Regular rate and rhythm Abdomen - Soft, nontender, nondistended, no masses or organomegaly Neurologic - Awake, alert, follows commands. Cranial nerves II-XII are intact, There are no focal motor deficits grossly Skin - No bruising or bleeding, good turgor, normal warmth Extremities - No clubbing, cyanosis, edema. Sclerodactyly to hands bilaterally. Peripheral pulses- present bilaterally and symmetric Psychiatric: appropriate, oriented to person, place and time/date Meds aspirin 81 mg Oral Daily atorvastatin 40 mg Oral Nightly enalapril 10 mg Oral Daily gabapentin 100 mg Oral BID levothyroxine 50 mcg Oral Daily fluorometholone 1 drop Both Eyes BID pantoprazole 40 mg Oral QAM AC sertraline 50 mg Oral Daily sodium chloride flush 10 mL Intravenous 2 times per day enoxaparin 40 mg Subcutaneous Daily cefTRIAXone (ROCEPHIN) IV 1 g Intravenous Q24H doxycycline (VIBRAMYCIN) IV 100 mg Intravenous Q12H baclofen, loperamide, LORazepam, sodium chloride flush, acetaminophen OR acetaminophen, polyethylene glycol, promethazine OR ondansetron, traMADol, heparin flush Labs CBC Recent Labs 08/03/19 0252 WBC 6.0 HGB 12.2 HCT 35.1 MCV 86.6 PLT 120* BMP: Recent Labs 08/02/19 0039 NA 140 K 4.2 CL 107 CO2 25 BUN 15 CREATININE 0.52 GLUCOSE 113* ABG: No results found for: PH, PCO2, PO2, HCO3, O2SAT No results found for: IFIO2, MODE, SETTIDVOL,SETPEEP LIVER PROFILE Recent Labs 08/02/19 0039 AST 30 ALT 30 BILITOT 0.4 ALKPHOS 100 INR Lab Results Component Value Date INR 1.0 04/20/2019 PROTIME 11.0 04/20/2019 PTT No results found for: APTT Cultures N/a Active Hospital Problem List Active Hospital Problems Diagnosis Date Noted Left shoulder pain [M25.512] 08/02/2019 Assessment and Plan Abnormal CT chest, suspect inflammation with concern for possible aspiration - ST evaluation pending, aspiration precautions. States she has had MBS years ago which showed she was aspirating. - ABx Doxycycline and Ceftriaxone - Recommend repeat CT chest in 1 month to monitor opacities for progression. Can follow outpatient with Dr. Winn. Scleroderma with dysphagia - ST evaluation. Discussed with ST today. LUCIANA per patient- untreated - patient states years ago she was diagnosed with sleep apnea and has CPAP at home with O2. She wasunable to tolerate full facemask so she has not been wearing and she does not wear the O2. She cannot recall what DME company she uses - She complains of excessive daytime sleepiness and fatigue - Would recommend new sleep study outpatient and f/u with Dr. Winn. Consider nocturnal pulse oximetry study while inpatient. Will Discuss with Dr. Winn today. Chest pain with history of CAD/ Left shoulder pain - Cardiology consult noted. Shoulder pain likely non cardiac related per notes. - EKG normal. Troponin negative x 2 - Cardiology recommending medical management. ASA and Statin - Left shoulder Xray negative for acute findings Hx HTN and hyperlipidemia - Enalapril, Atorvastatin GERD - Protonix DVT prophylaxis- Lovenox SQ Code status- Full Code Case discussed with nurse and patient Questions and concerns addressed. Associated attestation - Sylvia Winn MD - 08/03/2019 1:33 PM EDT I have evaluated the patient and reviewed the case with the PRODUCTION LABORER. I agree with the current plan of care including the workup, evaluation, management, and diagnosis. Care plan has been discussed. I independently examined and evaluated the patient. The documentation below has been reviewed and edited as needed to reflect the findings of my evaluation. 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 thickened liquids -, DX UTI ) Nutrition Recommendations: 1)Continue current diet general No caffeine- may benefit from Gerd diet. PT DECLINES DIET MODIFICATIONS 2)Suggest ST evaluation- to be ordered . Pt with hx dysphagia and had some aspiration Into lungs But pt refused interventions by ST (thickened liquids?)- WAS YRS AGO? 3)Please document PO intakes consistently in the flowsheet to better assess intake adequacy. 4)Monitor labs, status, intake to reassess. Follow up at least weekly Nutrition Assessment: presented to ER with the complaint of chest and shoulder pain. States that she has been treated for recent UTI/fever a few days prior. States that over the past three weeks she has been developing continual left shoulder and neck pain with intermittent radiation into her left arm which has been worsening for the past few days. (Some of her CP sounds like GERD, some is muscular along L shoulder or could be referred due to lung lesion. per md) Malnutrition Assessment: Malnutrition Status: Insufficient data Context: Acute illness or injury Findings of the 6 clinical characteristics of malnutrition (Minimum of 2 out of 6 clinical characteristics is required to make the diagnosis of moderate or severe Protein Calorie Malnutrition based on AND/ASPEN Guidelines): 1. Energy Intake-Less than or equal to 75% of estimated energy requirement, (4-5) 2. Weight Loss-No significant weight loss, 3. Fat Loss-Unable to assess, 4. Muscle Loss-Unable to assess, 5. Fluid Accumulation-No significant fluid accumulation, 6. 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 Signs and symptoms: as evidenced by Other (Comment)(chest x ray=poss aspiration, to get speech eval- per hx refused diet modifications) Objective Information: Nutrition-Focused Physical Findings: 07/31 bm ,finger joints removed - states adapted - can eat ok, marvin 20 Wound Type: None Current Nutrition Therapies: Oral Diet Orders: General(no caffeine) Oral Diet intake: 76-100% Oral Nutrition Supplement (ONS) Orders: ONS intake: (na) Anthropometric Measures: Ht: 5' 2 (157.5 cm) Current Body Wt: 135 lb 11 oz (61.5 kg) Admission Body Wt: 136 lb (61.7 kg) Usual Body Wt: 128 lb (58.1 kg) % Weight Change: , denies wt loss - states wt gain. [place] Body Wt: 110 lb (49.9 kg), % [place] Body 124 Adjusted Body Wt: , body weight adjusted for BMI Classification: BMI 18.5 - 24.9 Normal Weight(24.9) Nutrition Interventions: Continue current diet(DECLINES DIET MODIFICATION) Continued Inpatient Monitoring, Speech Therapy Nutrition Evaluation: Evaluation: Goals set Goals: pt will receive ,tolerate adequate nutrition- will have safe swallow - Monitoring: Meal Intake, Diet Tolerance, Weight, Pertinent Labs, Chewing/Swallowing, I&O, Nausea or Vomiting, Patient/Family Education Contact Number: [phone] * Paulina Kumar PA-C - 08/02/2019 11:42 AM EDT Hospitalist Progress Note 08/02/2019 11:43 AM Subjective: Admit Date: 08/01/2019 PCP: Erik Gannon MD Room#: 251/2512 Interval History: Follow up note on patient admitted after midnight. DIET GENERAL; No Caffeine Patient Vitals for the past 96 hrs (Last 3 readings): Weight 08/02/19 0544 135 lb 11 oz (61.5 kg) 08/02/19 0535 136 lb (61.7 kg) 24HR INTAKE/OUTPUT: Intake/Output Summary (Last 24 hours) at 08/02/2019 1143 Last data filed at 08/02/2019 1046 Gross per 24 hour Intake 410 ml Output Net 410 ml Medications: aspirin 81 mg Oral Daily atorvastatin 40 mg Oral Nightly enalapril 10 mg Oral Daily gabapentin 100 mg Oral BID levothyroxine 50 mcg Oral Daily fluorometholone 1 drop Both Eyes BID pantoprazole 40 mg Oral QAM AC sertraline 50 mg Oral Daily sodium chloride flush 10 mL Intravenous 2 times per day enoxaparin 40 mg Subcutaneous Daily [START ON 08/03/2019] cefTRIAXone (ROCEPHIN) IV 1 g Intravenous Q24H doxycycline (VIBRAMYCIN) IV 100 mg Intravenous Q12H LABS: CBC: Recent Labs 08/02/19 0039 WBC 9.1 RBC 4.49 HGB 13.4 HCT 38.8 MCV 86.6 RDW 13.1 PLT 126* BMP: Recent Labs 08/02/19 0039 NA 140 K 4.2 CL 107 CO2 25 BUN 15 CREATININE 0.52 GLUCOSE 113* CALCIUM 9.1 ANIONGAP 8 LIVER PROFILE: Recent Labs 07/31/19 1028 08/02/19 0039 AST 34 30 ALT 32 30 BILITOT -- 0.4 ALKPHOS -- 100 LABALBU -- 3.8 PROT -- 6.8 PT/INR: No results for input(s): PROTIME, INR in the last 72 hours. CARDIAC ENZYMES: Recent Labs 08/02/19 0039 08/02/19 0538 08/02/19 0833 TROPONINI <0.012 <0.012 <0.012 Procalcitonin: No results found for: PROCAL Objective: Vitals: BP (!) 117/57 Pulse 58 Temp 98.4 F (36.9 C) (Temporal) Resp 20 Ht 5' 2 (1.575 m) Wt 135 lb 11 oz (61.5 kg) SpO2 98% BMI 24.82 kg/m Pulse Ox: SpO2 Av.7 % Min: 92 % Max: 99 % Supplemental O2: Assessment/Plan 1. Chest pain with known CAD: per cardiology pain is reproducible. Pt with heart cath back on 04/20/2019. Cont medical management. 2. L shoulder pain: likely not cardiac in origin. Reproducible as well. Will obtain imaging of L shoulder. 3. Lung fibrosis with new 3cm lesion in base of L upper lobe: pulm consulted and following, suspicious for inflammatory changes or possibly aspiration. Placed on abx for possible aspiration PNA and MANAGER OF ORGANIZATIONAL DEVELOPMENT consult placed. 4. Fevers, recent UTI 5. Scleroderma 6. HTN/HLD: cont home meds 7. GERD -am labs, replace lytes prn -increase activity -DVT prophylaxis: [x] Lovenox [] Heparin [] SCDs [x] Encourage ambulation [] Already on Anticoagulation Advance Directive: Full Code Discharge planning: TBD Signed: Paulina Kumar PA-C Inpatient Medical Services 08/02/2019, 11:43 AM documented in this encounter* Judy Wick RN - 09/15/2019 1:15 PM EDT Patient here for port flush, no labs ordered. 1325 Ordered treatment completed. Patient discharged without any issues. Patient has a copy of nextinfusion appointment and verbalizes understanding. All questions answered. documented in this encounter* Paul Hendrickson RN - 10/27/2019 3:49 PM EDT Arrival Note Patient is here for port flush . Labs were not ordered. 1610: Ordered treatment completed. Patient discharged without any issues. Patient has a copy of next infusion appointment and verbalizes understanding. All questions answered. documented in this encounter* Paul Hendrickson RN - 12/08/2019 3:11 PM EDT Arrival Note Patient is here for port flush . Labs were not ordered. 1530: Ordered treatment completed. Patient discharged without any issues. Patient has a copy of next infusion appointment and verbalizes understanding. All questions answered. documented in this encounter* Paul Hendrickson RN - 03/08/2020 2:28 PM EST Arrival Note Patient is here for port flush . Labs were not ordered. 1450: Ordered treatment completed. Patient discharged without any issues. Patient has a copy of next infusion appointment and verbalizes understanding. All questions answered. documented in this encounter* Jennifer Rondon RN - 04/19/2020 2:07 PM EST Patient is here for port flush . Mediport accessed. Labs were not ordered. 1418: Ordered treatment completed. Patient discharged without any issues. Patient has a copy of next infusion appointment and verbalizes understanding. All questions answered. documented in this encounter* Paul Hendrickson RN - 01/26/2020 2:01 PM EST Arrival Note Patient is here for port flush . Labs were not ordered. 1415: Ordered treatment completed. Patient discharged without any issues. Patient has a copy of next infusion appointment and verbalizes understanding. All questions answered. documented in this encounter* Miguelina Armendariz RN - 12/31/2018 11:42 AM EST Pt here for port flush no labs ordered documented in this encounter Assessments Diagnosis Post-op pain- Primary Other acute postoperative pain Diagnosis Chest pain, unspecified type- Primary CAD in [place] artery Coronary atherosclerosis of [place] coronary artery Diagnosis Other specified complication of vascular prosthetic devices, implants and grafts, initial encounter ([facility])- Primary Poor venous access Other specified circulatory system disorders Diagnosis Other specified complication of vascular prosthetic devices, implants and grafts, initial encounter ([facility]) Poor venous access Other specified circulatory system disorders Diagnosis Acute pain of left shoulder Chest pain, unspecified type Left shoulder pain Pain in joint, shoulder region Pulmonary infiltrate Other nonspecific abnormal finding of lung field Diagnosis Pulmonary infiltrate Other nonspecific abnormal finding of lung field Hypoxia Hypoxemia Lung nodule Solitary pulmonary nodule Diagnosis Acute nonintractable headache, unspecified headache type Chest pain, unspecified type Strain of neck muscle, initial encounter Diagnosis COVID-19 Diagnosis Other specified complication of vascular prosthetic devices, implants and grafts, initial encounter ([facility])- Primary Poor venous access Other specified circulatory system disorders Diagnosis Other specified complication of vascular prosthetic devices, implants and grafts, initial encounter ([facility])- Primary Poor venous access Other specified circulatory system disorders Reason for Referral Status Reason Specialty Diagnoses / Procedures Referre d By Contact Referred To Contact Closed Radiology Diagnoses Pulmonary infiltrate Hypoxia Lung nodule Procedures CT CHEST WO CONTRAST Sylvia Winn MD [address] [place] [address] Status Reason Specialty Diagnoses / Procedures Re ferred By Contact Referred To Contact Open Radiology Diagnoses Chronic nonintractable headache, unspecified headache type Visual disturbance Dizziness Nausea Procedures MRI BRAIN WO CONTRAST Gifty Clark, CELLOPHANE BATH MIXER - PROPERTY INSURANCE CLAIMS EXAMINER [address] [place] [address] Additional Source Comments INFORMATION SOURCE (unrecogn ized section and content) DATE CREATED AUTHOR AUTHOR'S ORGANIZ ATION 12/16/2021 [facility] DATE CREATED AUTHOR AUTHOR'S ORGANIZ ATION 03/19/2023 [facility] Reason for Visit (unrecogniz ed section and content) Reason Comments Neck Pain Shoulder Pain Reason Comments Headache Torticollis Chest Pain Tingling bilateral arms/ hand s radiating up to elbows Concern For COVID-19 pt. here be because family is concerned she has COVID Reason Comments Cough Status Reason Specialty Diagnoses / Procedures Re ferred By Contact Referred To Contact Authorized Diagnoses Poor venous access Other specified complication of vascular prosthetic devices, implants and grafts, initial encounter (HCC) Erik Gannon MD [address] [place] [address] [facility] Med Onc [address] [place] [id number] Reason Comments Abdominal Pain Nausea Fever Diarrhea Reason Comments Head Injury Neck Pain Reason Comments Med Refill Reason Onset Date Comments IV Medication 06/11/2022 Reason Comments 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 Burris (former Dr. Mann patient) Specialty Diagnoses / Procedures Referred By Rachel read Referred To Contact General Surgery Diagnoses Cellulitis of chest wall Procedures [place] OFFICE/OUTPATIENT NEW HIGH MDM 60-74 MINUTES Bettye Burris PA-C [address] [place] [address] [facility] Gen Surg [address] [facility] [address] [place] [address] Referral ID Status Reason Start Date Expiration Date V isits Requested Visits Authorized [id number] Closed Specialty Services Required 06/12/2022 06/12/2023 1 1 Reason Onset Date Comments Med Refill 08/15/2022 Reason Comments Abdominal Pain Reason Comments OP Infusion Specialty Diagnoses / Procedures Referred By Rachel t Referred To Contact Diagnoses Other specified complication of vascular prosthetic devices, implants and grafts, initial encounter (HCC) Poor venous access Erik Gannon MD [address] [place] [address] [facility] [address] [place] [address] Referral ID Status Reason Start Date Expiration Date V isits Requested Visits Authorized [id number] Pending Review 11/27/2021 05/26/2022 1 1 Reason Comments ER Follow-up [facility] -09/07/22 uti and abd pain referred to gastro Gave iv atb and oral atb Reason Comments Difficulty Urinating Painful Urination Reason Onset Date Comments Results 10/03/2022 Reason Comments New Patient Jud, dysuria, painf ul urination Reason Onset Date Comments ER Follow-up 09/12/2022 Reason Onset Date Comments Med Refill 11/29/2022 Reason Onset Date Comments Headache 12/04/2022 Reason Comments Blood Work [facility] Health Maintenance No COVID vaccinesHep C [id number]-[id number]-[id number] [id number] UTI Reason Comments Hyperlipidemia Disability Requesting handicap placard rx and needs form for utilities completed Health Maintenance AWV scheduled for Ja nuaryDeclines Shingrix or Flu vaccine Reason Onset Date Comments Results 02/11/2023 Reason Comments Medicare Annual Wellness Visit Subsequen t Health Maintenance RSV vaccine-did not getFlu [id number]-tktexmwgNCPI-decli howard Blood Work Gifty noted CMP, A1c and lipid are due 03/16/23-Orders pended Neck Pain Onset 2 months, stif fness Ordered Prescriptions (unrec ognized section and content) Scheduled Active and Recently Administ ered Medications (unrecognized section and content) PRN Medication Order 08/03/2020 08/04/2020 08/05/2020 iopamidol (ISOVUE-370) 76 % injection 75 mL (COMPLETED) 75 mL, Intravenous, IMG ONCE PRN, Other, Starting on Clarisa 08/04/20 at 2319, For 1 dose 2339 (Given - Provider: Kristel Moctezuma) Scheduled Medication Order 11/18/2021 11/19/2021 11/20/2021 acetaminophen (TYLENOL) tablet 1,000 mg (COMPLETED) 1,000 mg, Oral, ONCE, 1 dose, On 11/20/21 at 1534, Maximum dose of acetaminophen is 4000 mg from all sources in 24 hours. 1534 (Given - Provid er: Deanne Alba LPN) bacitracin ointment (COMPLETED) Topical, ONCE, On Sat11/20/21 at 1531, For 1 dose, Apply to right elbow with nonadhesive dressing and to scalp wound. 1533 (Given - Provid er: Deanne Alba LPN)1534 (Due) lidocaine-EPINEPHrine 1 %-[id number] injection 20 mL (COMPLETED) 20 mL, IntraDERmal, ONCE, 1 dose, On Sat11/20/21 at 1408 1500 (Given by Other - Provider: Mila Raman RN - Comment: to suture cart for physician) Scheduled Medication Order 09/03/2022 09/04/2022 09/05/2022 cefTRIAXone (Rocephin) 1,000 mg in sodium chloride 0.9 % 50 mL IVPB Mini-Bag Plus (COMPLETED) 1,000 mg, IntraVENous, at 100 mL/hr, Administer over 30 Minutes, Once, On Sat09/05/22 at 1715, For 1 dose, Mini-Bag Plus bag, Suspected Indication (Select all that apply): Urinary Tract Infection 1736 (New Bag - Prov ider: Lizzie Davis RN)1806 (Stopped - Provider: Lizzie Davis RN) ondansetron (Zofran) injection 4 mg (COMPLETED) 4 mg, IntraVENous, Once, On Sat09/05/22 at 1540, For 1 dose 1548 (Given - Provid er: Lizzie Davis RN) Care Teams (unrecognized sec tion and content) Per Diem Relationship Specialty Start Date End Date Erik Gannon MD [address] [place] [id number] PCP - General 09/18/14 Per Diem Relationship Specialty Start Date End Date Erik Gannon MD [address] [place], [place] [address] [id number] PCP - General 09/18/14 Per Diem Relationship Specialty Start Date End Date Erik Gannon MD [address] [place], [place] [address] [id number] PCP - General 09/18/14 Per Diem Relationship Specialty Start Date End Date Erik Gannon MD [address] [place] [facility] [address] PCP - General 09/18/14 Per Diem Relationship Specialty Start Date End Date EduardoAngleshannon Flores, [employer]ER - PROPERTY INSURANCE CLAIMS EXAMINER [address] [place] [facility] [place] [address] PCP - General 07/28/20 Per Diem Relationship Specialty Start Date End Date Gifty Clark, [employer] BATH M[employer]ER - PROPERTY INSURANCE CLAIMS EXAMINER [address] [place] [facility] [place] [address] PCP - General 07/28/20 Per Diem Relationship Specialty Start Date End Date Gifty Clark, [employer] BATH MIXER - PROPERTY INSURANCE CLAIMS EXAMINER [address] [place] [address] PCP - General 07/28/20 Per Diem Relationship Specialty Start Date End Date Gifty Clark, [employer] BATH MIXER - PROPERTY INSURANCE CLAIMS EXAMINER [address] [place] [address] PCP - General 07/28/20 Per Diem Relationship Specialty Start Date End Date Erik Gannon MD [address] [place] [facility] [address] PCP - General Family Medicine 06/26/22 Per Diem Relationship Specialty Start Date End Date Erik Gannon MD [address] [place] [facility] [address] PCP - General Family Medicine 06/26/22 Per Diem Relationship Specialty Start Date End Date Erik Gannon MD [address] [place] [address] PCP - General Family Medicine 06/26/22 Per Diem Relationship Specialty Start Date End Date Erik Gannon MD [address] [place] [address] PCP - General Family Medicine 06/26/22 Per Diem Relationship Specialty Start Date End Date Erik Gannon MD [address] [facility] [place] [address] PCP - General Family Medicine 06/26/22 Per Diem Relationship Specialty Start Date End Date Erik Gannon MD [address] [facility] [place] [address] PCP - General Family Medicine 06/26/22 Per Diem Relationship Specialty Start Date End Date Erik Gannon MD [address] [facility] [place] [address] PCP - General Family Medicine 06/26/22 Per Diem Relationship Specialty Start Date End Date Erik Gannon MD [address] [facility] [place] [address] PCP - General Family Medicine 06/26/22 Per Diem Relationship Specialty Start Date End Date Erik Gannon MD [address] [facility] [place] [address] PCP - General Family Medicine 06/26/22 Per Diem Relationship Specialty Start Date End Date Erik Gannon MD [address] [facility] [place] [address] PCP - General Family Medicine 06/26/22 Per Diem Relationship Specialty Start Date End Date Erik Gannon MD [address] [facility] [place] [address] PCP - General Family Medicine 06/26/22 Per Diem Relationship Specialty Start Date End Date Erik Gannon MD [facility] [place] [address] PCP - General Family Medicine 06/26/22 Per Diem Relationship Specialty Start Date End Date [facility] Gannon [facility] [place] [address] PCP - General Family Medicine 06/26/22 Per Diem Relationship Specialty Start Date End Date Erik Gannon [facility] [place] [address] PCP - General Family Medicine 06/26/22 Daron Odonnell MD [address] [place] [address] Surgeon Urology 11/13/22 Per Diem Relationship Specialty Start Date End Date Erik Gannon MD [facility] [place] [address] PCP - General Family Medicine 06/26/22 Daron Odonnell MD [address] [place] [address] Surgeon Urology 11/13/22 Per Diem Relationship Specialty Start Date End Date Erik Gannon MD [facility] [place] [address] PCP - General Family Medicine 06/26/22 Daron Odonnell MD [address] [place] [address] Surgeon Urology 11/13/22 Per Diem Relationship Specialty Start Date End Date Erik Gannon MD [address] [place] [address] [facility] [place] [address] PCP - General Family Medicine 06/26/22 Daron Odonnell MD [address] [place] [address] Surgeon Urology 11/13/22 Per Diem Relationship Specialty Start Date End Date Erik Gannon MD [address] [place] [address] [facility] [place] [address] PCP - General Family Medicine 06/26/22 Daron Odonnell MD [address] [place] [address]. [address] [place] [address] Surgeon Urology 11/13/22 Per Diem Relationship Specialty Start Date End Date Erik Gannon MD [address] [place] [id number] PCP - General Family Medicine 06/26/22 Daron Odonnell MD [address] [place] [address] Surgeon Urology 11/13/22 Per Diem Relationship Specialty Start Date End Date Erik Gannon MD [address] [place] [address] [facility] [place] [address] PCP - General Family Medicine 06/26/22 Daron Odonnell MD [address] [place] [address] Surgeon Urology 11/13/22 Per Diem Relationship Specialty Start Date End Date Erik Gannon MD [address] [place], [place] [address] [address] PCP - General Family Medicine 06/26/22 Daron Odonnell MD [address] [place] [address] [address] [place] [address] Surgeon Urology 11/13/22 Per Diem Relationship Specialty Start Date End Date Erik Gannon MD [address] [place], [place] [address] [address] PCP - General Family Medicine 06/26/22 Daron Odonnell MD [address] [place] [address] [address] [place] [address] Surgeon Urology 11/13/22 Per Diem Relationship Specialty Start Date End Date Erik aGnnon MD [address] [place] [id number] PCP - General Family Medicine 06/26/22 Daron Odonnell MD [address] [place] [address] [address] [place] [address] Surgeon Urology 11/13/22 FOR RECORDS PERTAINING TO PATIENTS WHO ARE OR HAVE BEEN ENROLLED IN A CHEMICAL DEPENDENCY/SUBSTANCEABUSE PROGRAM, SOME INFORMATION MAY BE OMITTED. This clinical summary was aggregated from multiple sources. Caution should be exercised in using it in the provision of clinical care. This summary normalizes information from multiple sources, and as a consequence, information in this document may materially change the coding, format and clinical context of patient data. In addition, data may be omitted in some cases. CLINICAL DECISIONS SHOULD BE BASED ON THE PRIMARY CLINICAL RECORDS. [facility] [employer] [facility]. provides no warranty or guarantee of the accuracy or completeness of information in this document.
--- NOTE | 2023-03-21 08:10 | EKG12_ITS ---
Test Reason : JAW PAIN Blood Pressure : / mmHG Vent. Rate : 065 BPM Atrial Rate : 065 BPM P-R Int : 170 ms QRS Dur : 086 ms QT Int : 462 ms P-R-T Axes : 031 -32 045 degrees QTc Int : 480 ms Normal sinus rhythm Left axis deviation Low voltage QRS Inferior infarct , age undetermined Abnormal ECG Confirmed by JORGE MA, LANG ([id number]), material expeditor HALEY GONCALVES ([id number]) on 03/21/2023 12:49:49 PM Referred By: Lang Varela Confirmed By:LANG VARELA MD
--- NOTE | 2023-03-21 11:21 | STRESSREP ---
Stress Test Report Pharmacologic myocardial perfusion stress test. 77-year-old lady with a history of chest pain Resting EKG demonstrates sinus rhythm with a rate of 54 bpm. Resting blood pressure is 128/82 mmHg. 0.4 mg of regadenoson was infused per usual protocol followed by rapid intravenous saline flush injection. Continuous EKG monitoring was performed. The maximum heart rate was 162 bpm which was 112% of max impacted heart rate the maximum workload was 1 metabolic equivalent. At rest there were no ST or T wave changes noted to suggest ischemia and at peak infusion nonspecific ST changes were noted which did not meet the criteria for ischemia. No clinical angina is noted. The final blood pressure was 112/62 mmHg. Myocardial perfusion protocol. 11.1 mCi of technetium 99m sestamibi was injected at rest. 0.4 mg of regadenoson was infused per usual protocol. At peak infusion 33.6 mCi of technetium 99m sestamibi was injected stress images were obtained stress and rest images were reconstructed and compared in the short axis vertical long and horizontal long axis. Gated images were also obtained. Perfusion SPECT analysis: Review of the stress images demonstrate normal uptake of tracer noted in all areas of the myocardium. The resting images similar demonstrated normal uptake of tracer noted in all areas of the myocardium. No areas of reversibility are noted to suggest ischemia and no previous infarct is noted. Gated SPECT analysis: The gated ejection fraction is normal. Conclusion: Normal pharmacologic myocardial perfusion stress test. Preserved ejection fraction.
== END | disposition home or self-care (01) ==
LOC: CVS 06:42
PROVIDERS: PCP Family Medicine; Referring Provider Internal Medicine Cardiovascular Disease; Visit Provider Internal Medicine Cardiovascular Disease
DX: R06.09 Other forms of dyspnea (principal); R04.0 Epistaxis; R53.83 Other fatigue; I25.10 Atherosclerotic heart disease of native coronary artery without angina pectoris; I10 Essential (primary) hypertension; E78.5 Hyperlipidemia, unspecified; R00.2 Palpitations; M79.89 Other specified soft tissue disorders
CPT/HCPCS: 78452; 93005; 93017; 93306; A9500; J2785

== ENCOUNTER 2023-11-11 14:07 | Emergency (ER) | payer MEDICARE, MEDICAID, SELFPAY ==
[2023-11-11 14:10] VITALS: BP 155/66; PULSE 70; RESP 18; TEMP 36.6; O2SAT 98; BMI 26.2
--- NOTE | 2023-11-11 14:25 | EDS_ITS ---
HPI History of Present Illness Chief Complaint: Palpitations Informant: patient Onset/Context/Timing Onset: Days Activity at onset: gradual Timing: Intermittent Current Severity: Mild Maximum Severity: Mild Narrative Narrative: 78-year-old female history of hypertension, CAD without stents or bypass and hypothyroidism. She is also treated for scleroderma and has a Mediport. States since Saturday she has had palpitations decelerate heart rate. Says it comes and goes. Denies any chest pain. Generalized weakness and at times short of breath. States she just finished an antibiotic she was on doxycycline for an infection on her right leg. Prior Similar Symptoms: Yes Recent Illness/Hospitalization: No CVD Risk Factors: Positive for Hypertension PE Risk Factors: Negative for Recent Travel/Surgery, Recent Immobilization, Prior DVT or PE, Cancer or OCP + Smoking + >/=35 TAD Risk Factors: Negative for Marfan's Syndrome, Hypertension or Family History [facility] Medical History Essential (primary) hypertension Atherosclerotic heart disease of [place] coronary artery without angina pectoris History of 2019 novel coronavirus disease (COVID-19) (03/17/20) GERD (gastroesophageal reflux disease) Vitamin B 12 deficiency Hypothyroidism Chronic fatigue Visual disturbance Chronic intractable headache Hyperlipidemia History of kidney stones Scleroderma Palpitations Home Medications ?Medication ?Instructions ?Recorded ?Last Taken ?Type ascorbic acid (vitamin C) 500 mg mg PO 05/15/17 Unknown History capsule baclofen 10 mg tablet 10 mg PO TID PRN 05/15/17 Unknown History aspirin 81 mg tablet,delayed 81 mg PO DAILY 07/27/20 Unknown History release (Adult Aspirin Regimen) cholecalciferol (vitamin D3) 25 25 mcg PO DAILY 07/27/20 Unknown History mcg (1,000 unit) tablet enalapril maleate 10 mg tablet 10 mg PO DAILY 07/27/20 Unknown History fluorometholone 0.1 % eye 1 drp ophthalmic (eye) BID 07/27/20 Unknown History drops,suspension gabapentin 100 mg capsule 100 mg PO TID 07/27/20 Unknown History (Neurontin) levothyroxine 50 mcg tablet 50 mcg PO DAILY 07/27/20 Unknown History lorazepam 1 mg tablet 1 mg PO TID PRN 07/27/20 Unknown History nitroglycerin 0.4 mg sublingual 0.4 mg sublingual Q5-15M PRN chest 07/27/20 Unknown Rx tablet pain #25 tabs sertraline 50 mg tablet (Zoloft) 50 mg PO DAILY 07/27/20 Unknown History metoprolol succinate 25 mg 25 mg PO DAILY #30 tabs 09/26/22 Unknown Rx tablet,extended release 24 hr pravastatin 20 mg tablet 20 mg PO QHS #30 ea 09/13/23 Unknown Rx Allergy/AdvReac Type Severity Reaction Status Date / Time azithromycin (From Zithromax) Allergy hives Verified 11/11/23 14:09 amoxicillin (From Augmentin) AdvReac Unknown Verified 11/11/23 14:09 clavulanic acid (From AdvReac Unknown Verified 11/11/23 14:09 Augmentin) metoclopramide (From Reglan) AdvReac Unknown Verified 06/05/17 15:22 naproxen (From Naprosyn) AdvReac Unknown Verified 11/11/23 14:09 Sulfa (Sulfonamide AdvReac Unknown Verified 11/11/23 14:09 Antibiotics) Family History Mother CAD (coronary artery disease) Cancer Father CAD (coronary artery disease) Cancer Unknown Sudden cardiac Surgical History History of left heart catheterization (04/20/19) History of colonoscopy History of hysterectomy History of hand surgery History of cholecystectomy History of bladder suspension procedure History of appendectomy Social History Smoking Status: Never smoker ROS ROS ED ROS Narrative Denies recent illness. Palpitations. Constitutional Constitutional ED: Denies chills or fever(s) Eyes Eyes: Reports none ENT ENT ED: Denies ear pain Cardiovascular Cardiovascular: Reports as per HPI, palpitations and racing heartbeat; Denies chest pain Respiratory/Chest Respiratory/Chest: Reports dyspnea; Denies cough Gastrointestinal Gastrointestinal: Denies abdominal pain, constipation, diarrhea, melena, nausea or vomiting Genitourinary Genitourinary ED: Denies dysuria or hematuria Musculoskeletal Musculoskeletal: Denies arthralgias or back pain Integumentary Denies abscess or Abrasions Neurologic Neurologic: Denies headache(s) Psychiatric Psychiatric: Denies anxiety or depression Endocrine Endocrinology: Denies cold intolerance Hematologic/Lymphatic Hematologic/Lymphatic: Denies easy bleeding, easy bruising or lymphadenopathy Allergic/Immunologic Allergic/Immunologic ED: Denies mouth swelling, tongue swelling or urticaria EXAM Physical Exam Narrative Exam Narrative: 78-year-old female vital signs stable afebrile. Pulse ox 98% on room air no signs hypoxia. Heart rate 70. H EENT exam unremarkable. Moist mucous membranes. Neck nontender. No lymphadenopathy. Lungs clear to auscultation bilaterally. Heart regular rate and rhythm rate about 70 no murmur. Abdomen soft nontender. Moving all 4 extremities. She has calcification in her right thigh. Resolving infection there also. Mild area of redness. Dorsi plantarflexion intact. She has changes in her hands consistent with contractures most likely from her scleroderma. Back is nontender. Neurologically she is awake and alert no focal motor deficits. Calves are nontender without edema or cords. Const Vital Signs: 11/11/23 14:10 11/11/23 14:26 11/11/23 15:07 Temperature 97.8 F Temperature Source Oral Pulse Rate 70 66 Respiratory Rate 18 16 Blood Pressure 155/66 H 131/69 H Blood Pressure Mean 95 89 Pulse Ox 98 99 Oxygen Delivery Method Room Air Room Air Room Air 11/11/23 16:00 11/11/23 17:00 11/11/23 17:51 Temperature Temperature Source Pulse Rate 67 59 L 59 L Respiratory Rate 24 H 16 18 Blood Pressure 148/62 H 161/70 H 157/53 H Blood Pressure Mean 90 100 87 Pulse Ox 99 99 100 Oxygen Delivery Method Room Air Room Air Room Air Positive well nourished and well developed; Negative for obese, cachectic, contractures or unkempt General Appearance ED: well developed and NAD; Negative for unkempt, cachectic, contractures or pallor Nutritional Appearance: Negative for cachectic or obese HEENT Reports moist mucous membranes normocephalic and atraumatic; Negative for trauma or tenderness Eyes PERRL and EOMs intact bilaterally General Eye ED: Negative for pale conjunctiva or scleral icterus Neck no lymphadenopathy, supple and no JVD General: Negative for tenderness Chest Wall inspection of chest normal and palpation of chest normal Chest: Negative for tenderness Resp normal respiratory effort and clear to auscultation bilaterally Effort and Inspection: Negative for respiratory distress Auscultation: Negative for rales, rhonchi, wheezes or diminished lung sounds Cardio regular rate, regular rhythm, S1 normal heart sound, S2 normal heart sound and no murmurs Rate: Negative for bradycardia, tachycardic or other Rhythm: Negative for abnormal rhythm Peripheral Pulses: pulses 2+ throughout GI normal to inspection, nondistended, normoactive bowel sounds, soft to palpation, non-tender, non-distended and no masses; Negative for hepatosplenomegaly Back/Spine no CVA tenderness and no thoracic nor lumbar tenderness General Back: Negative for CVA tenderness Cervical Spine: Negative for cervical spine tenderness Extremity normal to inspection General Extremety ED: Negative for edema, pulses abnormal or tenderness General Extremity: Negative for edema or pulses abnormal Neuro oriented x3 and CN's II-XII intact bilaterally Sensorium / Orientation: awake, alert, oriented to person, oriented to place and oriented to time; Negative for confused, lethargic or stuporous Motor Exam: strength 5/5 throughout Psych mental status grossly normal Appearance: Negative for unkempt Attitude: No agitated Mood & Affect: Negative for depressed, anxious or tearful Skin no rashes or lesions noted and no wounds General Skin Exam: Negative for jaundice or pallor Rashes: No rashes noted Trauma: Negative for abrasion, laceration or puncture MDM MDM MDM Narrative Medical decision making narrative: 78-year-old complaining of palpitations. Exam benign. She undergo cardiac workup. Repeat exam at 6:19 PM unchanged. Benign. Patient and her family discussed her test results. Daughter present at bedside. We discussed this potentially could have been dysrhythmia. She has had a history of intermittent A-fib. But she has not had it since she has been here her EKG and labs are unremarkable. There going to follow-up. History & Record Review Discussion w/independent historian: Patient Additional record(s) reviewed:: Prior inpatient record, Prior outpatient record, Prior ED visit and Prior labs Lab Data Attestation: I reviewed the patient's lab results. Lab results narrative: CBC shows a white count 3.9. H&H 13 and 40. Platelets 124. Electrolytes show gap of 10. Normal BUN and creatinine. Glucose 124. Troponin 9. TSH 1.3 both normal. Labs: Laboratory Results - last 24 hr 11/11/23 14:24 WBC 3.9 L RBC 4.64 Hgb 13.2 Hct 40.3 MCV 86.9 MCH 28.4 MCHC 32.8 RDW Std Deviation 42.4 RDW Coeff of John 13.4 Plt Count 124 L MPV 10.6 Immature Gran % (Auto) 0.300 Neut % (Auto) 66.4 Lymph % (Auto) 23.7 Robertson % (Auto) 8.8 Eos % (Auto) 0.5 Baso % (Auto) 0.3 Absolute Neuts (auto) 2.6 Absolute Lymphs (auto) 0.92 Nucleated RBC % 0 Sodium 142 Potassium 3.5 Chloride 109 H Carbon Dioxide 23.0 Anion Gap 10 BUN 15 Creatinine 0.68 Estim Creat Clear Calc 52.12 Est GFR (MDRD) Af Amer 107 Est GFR (MDRD) Non-Af 89 BUN/Creatinine Ratio 21.9 H Glucose 124 H Calcium 9.1 Troponin I High Sens 9 TSH 1.300 Radiography Chest X-Ray - ED: 1 View, Read by ED Physician, Read by Radiologist, Normal, Heart, Lungs, Mediastinum, Bony Structures, No Acute Disease and Chronic Changes Diagnostic Testing: Clinical Impression(s) from Imaging Studies Chest X-Ray 11/11/23 14:27 IMPRESSION: Findings suggestive of early left lower lobe infiltrate. Electronically Signed: Chris Bhatia MD at 14:46 EDT , Chest X-Ray 11/11/23 16:14 IMPRESSION: Left basilar interstitial thickening or subsegmental atelectasis.. Electronically Signed: Tavares Pablo MD at 16:43 EDT , Chest x-ray, 2 views, AP and lateral interpreted by by myself and radiologist shows chronic changes. No acute process. Lateral view did not show any signs of infiltrate. Normal cardiac silhouette. Right-sided Mediport. Rhythm Strip Rhythm Strip: Sinus Rhythm Rate: 65 Ectopy: None EKG Initial EKG: Attestation: I personally reviewed and interpreted this EKG as follows: Interpretation: Sinus Rhythm and No Acute Injury Pattern Comments: Normal sinus rhythm rate of 65 no acute signs of ME or ischemia. Discharge Plan Triage Chief Complaint: Palpitations ED Provider: Venkatesh Saleh Dx/Rx/DC Orders Clinical Impression: Palpitations Instructions: ED Palpitations Prescriptions: No Action baclofen 10 mg tablet 10 mg PO TID PRN ascorbic acid (vitamin C) 500 mg capsule PO enalapril maleate 10 mg tablet 10 mg PO DAILY gabapentin [Neurontin] 100 mg capsule 100 mg PO TID sertraline [Zoloft] 50 mg tablet 50 mg PO DAILY nitroglycerin 0.4 mg tablet, sublingual 0.4 mg sublingual Q5-15M PRN (Reason: chest pain) Qty: 25 3RF Rx Instructions: do not exceed 3 doses per episode cholecalciferol (vitamin D3) 25 mcg (1,000 unit) tablet 25 mcg PO DAILY lorazepam 1 mg tablet 1 mg PO TID PRN aspirin [Adult Aspirin Regimen] 81 mg tablet,delayed release (DR/EC) 81 mg PO DAILY levothyroxine 50 mcg tablet 50 mcg PO DAILY fluorometholone 0.1 % drops,suspension 1 drp ophthalmic (eye) BID metoprolol succinate 25 mg tablet extended release 24 hr 25 mg PO DAILY Qty: 30 11RF pravastatin 20 mg tablet 20 mg PO QHS Qty: 30 11RF Primary Care Provider: Erik Gannon Referrals: Lang Varela MD [Med Staff - Active Staff] - As soon as possible Erik Gannon MD [Primary Care Provider] - As soon as possible Activity Restrictions/Additional Instructions: Your test today were unremarkable. Call and follow-up with either your primary care physician or Dr. Linn for his office to make sure you are taking the meds that you are supposed to be on right now. Print Language: Belarusian Disposition Disposition: Home, Self Care
--- NOTE | 2023-11-11 14:27 | RAD_ITS ---
STUDY: X-RAY CHEST REASON FOR EXAM: Female, 78 years old. Chest pain TECHNIQUE: Single AP portable view of the chest. COMPARISON: Comparison is made with prior study dated January 29, 2023. FINDINGS: A right-sided Port-A-Cath is seen with the tip at the junction of the superior vena cava and right atrium. Increased markings are seen in the posterior medial segment of the right lower lobe. Early infiltrate should be ruled out. There is no demonstrated pleural abnormality. Normal size heart. Normal mediastinum and bere. Normal visualized pulmonary arteries. There is atherosclerotic calcification of the aortic arch with tortuosity. There are diffuse degenerative changes of the visualized thoracic spine. Normal visualized ribs, clavicles, and shoulders. There is no demonstrated abnormality of the visualized soft tissue structures of the upper abdomen. RAD/Chest 1 View (Portable) IMPRESSION: Findings suggestive of early left lower lobe infiltrate. Electronically Signed: Chris Bhatia MD at 14:46 EDT ,
[2023-11-11 14:30] LABS: Absolute Lymphocyte Count 0.92 X10^3/uL (0.83-4.51); Absolute Neutrophil Count 2.6 X10^3/uL (2.0-7.7); Basophil# 0.01 X10^3/uL; Basophil% 0.3 % (0-1); Eosinophil# 0.02 X10^3/uL; Eosinophils% 0.5 % (0-5); Hematocrit 40.3 % (37-47); Hemoglobin 13.2 g/dL (12.0-15.0); Lymphocyte # 0.92 X10^3/ul (0.83-4.51); Lymphocyte % 23.7 % (19-41); Mean Corp Hgb Conc 32.8 g/dL (32-36); Mean Corpuscular Hgb 28.4 pg (27.0-32.0); Mean Corpuscular Volume 86.9 fL (81-99); Mean Platelet Vol. 10.6 fl (6.2-12.0); Monocyte# 0.34 X10^3/uL; Monocyte% 8.8 % (0-10); NRBC Flagged by Analyzer 0 % (0-5); Neutrophil # 2.58 X10^3/uL (2.7-7.7); Neutrophil % 66.4 % (47-70); Platelet Count 124 K/mm3 (150-450); RBC Distribution Width CV 13.4 % (11.6-14.6); RBC Distribution Width SD 42.4 fl (35.1-43.9); Red Blood Count 4.64 M/mm3 (4.2-5.4); White Blood Count 3.9 K/mm3 (4.4-11.0)
[2023-11-11 14:54] LABS: Anion Gap 10 (5-15); BUN 15 mg/dL (7-18); BUN/Creat Ratio 21.9 RATIO (10-20); Calcium,Total 9.1 mg/dL (8.5-10.1); Chloride 109 mmol/L (98-107); Creatinine, Serum 0.68 mg/dL (0.55-1.02); EST Glomerular Filtration Rate 89 mL/min (>60); Est Glom Filt Rate - Afr Amer 107 mL/min (>60); Estimated Creatinine Clearance 52.12 ml/min; Glucose 124 mg/dL (74-106); Potassium 3.5 mmol/L (3.5-5.1); Sodium Level 142 mmol/L (136-145); Troponin-I HS 9 pg/mL (3.0-54.0)
[2023-11-11 15:07] VITALS: BP 131/69; PULSE 66; RESP 16; O2SAT 99
[2023-11-11 16:00] VITALS: BP 148/62; PULSE 67; RESP 24; O2SAT 99
--- NOTE | 2023-11-11 16:14 | RAD_ITS ---
STUDY: X-RAY CHEST REASON FOR EXAM: Female, 78 years old. Already did AP please do lateral TECHNIQUE: Lateral COMPARISON: AP portable November 11, 2023 FINDINGS: There is mild interstitial thickening or subsegmental atelectasis in the left lower lobe.. There is no demonstrated pleural abnormality. Normal size heart. Normal mediastinum and bere. Normal visualized pulmonary arteries. Mildly calcified aortic arch and descending thoracic aorta. Mediport catheter seen on the right with tip in distal superior vena cava Normal visualized thoracic spine. Normal visualized ribs, clavicles, and shoulders. There is no demonstrated abnormality of the visualized soft tissue structures of the upper abdomen. RAD/Chest 1 View (Portable) IMPRESSION: Left basilar interstitial thickening or subsegmental atelectasis.. Electronically Signed: Tavares Pablo MD at 16:43 EDT ,
[2023-11-11 17:00] VITALS: BP 161/70; PULSE 59; RESP 16; O2SAT 99
[2023-11-11 17:51] VITALS: BP 157/53; PULSE 59; RESP 18; O2SAT 100
[2023-11-11 18:34] VITALS: BP 126/78; PULSE 64; RESP 16; TEMP 36.7; O2SAT 99
== END 2023-11-11 18:35 | disposition home or self-care (01) ==
PROVIDERS: Emergency Provider Emergency Medicine; PCP Family Medicine; Visit Provider Emergency Medicine
DX: R00.2 Palpitations (principal); I25.10 Atherosclerotic heart disease of native coronary artery without angina pectoris; Z95.828 Presence of other vascular implants and grafts; E78.5 Hyperlipidemia, unspecified; I10 Essential (primary) hypertension; Z79.82 Long term (current) use of aspirin; Z79.899 Other long term (current) drug therapy; E03.9 Hypothyroidism, unspecified; Z90.710 Acquired absence of both cervix and uterus; Z90.49 Acquired absence of other specified parts of digestive tract
CPT/HCPCS: 71045; 80048; 84443; 84484; 85025; 93005; 99284